=== PATIENT | male | born 1940 | race Hispanic/Latino ===

== ENCOUNTER 2024-10-25 11:49 | Outpatient (CLI) | payer MEDICARE, SELFPAY ==
--- NOTE | ~2024-10-25 | MR_ITS ---
MRI of the brain Clinical History: Other symptoms of cognitive function Technique: Axial and sagittal T1-weighted images were acquired. These were followed by axial T2-weigh camila, diffusion weighted, gradient, and FLAIR images. Following intravenous administration of 12 cc Mu ltiHance gadolinium, T1-weighted fat-sat imaging was performed in the axial and coronal planes. Findings: There is no acute infarct, internal hemorrhage, or mass lesion. There are extensive chronic white matter changes in the periventricular white matter bilaterally. Ventricles and subarachnoid spaces are mildly dilated. There are probable mildly dilated perivascular spaces in the bilateral ganglia bilaterally. Orbits are unremarkable. Paranasal sinuses and mastoid air cells are clear. Major intracranial flow voids are intact. Sagittal midline structures are intact. No abnormal postcontrast enhancement identified. IMPRESSION: No acute infarct, intracranial hemorrhage, or mass lesion. Extensive chronic microvascular ischemic changes and mild generalized atrophy. Reviewed, dictated and finalized at [facility].
== END 2024-10-25 11:50 | disposition home or self-care (01) ==
LOC: MICIMG 11:51
PROVIDERS: PCP Family Medicine; Visit Provider Family Medicine
DX: I67.82 Cerebral ischemia (principal); G31.9 Degenerative disease of nervous system, unspecified; R25.1 Tremor, unspecified
CPT/HCPCS: 70553; A9577

== ENCOUNTER 2024-11-04 10:27 | Inpatient (IN) | payer MEDICARE, SELFPAY ==
[2024-11-04] VITALS (15 sets, daily range): BP systolic 133–181; BP diastolic 40–83; PULSE 66–86; RESP 16–25; TEMP 36.4–36.7; O2SAT 96–100; BMI 22.4
--- NOTE | ~2024-11-04 | XR_ITS ---
EXAM/PROCEDURE: XR chest PICC line - 11/06/2024 10:16 CDT HISTORY: 84 years old Male with picc line insertion TECHNIQUE: Two view(s) of the chest. COMPARISON: None available. FINDINGS: LUNGS/ PLEURA: No focal consolidation. No appreciable pneumothorax or large pleural effusion. Bibasil ar atelectasis and/or scarring. HEART/ MEDIASTINUM: Heart appears normal in size. Atherosclerotic desiccation that seen in the aorta. BONES: No acute osseous abnormality. OTHER: Right upper quadrant cholecystectomy clips. Tip of the PICC line is at the distal SVC. IMPRESSION: Tip of the PICC line is in the distal SVC. Reviewed, dictated and finalized at location A.
--- NOTE | ~2024-11-04 | XR_ITS ---
XR shoulder RT min 2V Ordering provider: Jessica Mane MD History: . fall, pain b/l . Comparison: None. FINDINGS: BONES: No acute fracture or dislocation. JOINT SPACES: The acromioclavicular joint shows mild osteoarthritic changes. The glenohumeral joint i s normal. SOFT TISSUES: Normal. IMPRESSION: No acute osseous abnormality right shoulder. Reviewed, dictated and finalized at location A.
--- NOTE | ~2024-11-04 | XR_ITS ---
Portable chest x-ray Comparison: 11/04/2024 Clinical History: Fluid overload Findings: Probable minimal left pleural effusion with mild bibasilar pulmonary edema. Cardiomediast inal silhouette is stable. Bones and soft tissues are unremarkable. Impression: Minimal left pleural effusion with mild bibasilar pulmonary edema/atelectasis. Correlate clinically f or pneumonia. Reviewed, dictated and finalized at [facility]. Impression: Minimal left pleural effusion with mild bibasilar pulmonary edema/atelectasis. Correlate clinically for pneumonia.
--- NOTE | ~2024-11-04 | XR_ITS ---
XR chest 1V Ordering provider: Jessica Mane MD History: 84 years Male with . fall, ams, pain b/l shoulders . Comparison: None. FINDINGS: MEDIASTINUM: The cardiac silhouette is not enlarged. LUNGS: No infiltrates, effusions or pneumothorax. OTHER: No free air under the diaphragm. IMPRESSION: No acute cardiopulmonary pathology. Reviewed, dictated and finalized at location A.
--- NOTE | ~2024-11-04 | XR_ITS ---
EXAMINATION: XR shoulder LT min 2V DATE: 11/04/2024 13:33 INDICATION: Left shoulder pain post fall TECHNIQUE: AP internally and externally rotated, AP oblique externally rotated and transscapular Y vi ews of the left shoulder were obtained. COMPARISON: None FINDINGS: Normal alignment. No fracture. Chondrocalcinosis at the glenohumeral and acromioclavicular joints wi th minimal osteoarthritis at the former and mild to moderate osteoarthritis at the latter. Soft tissu es are unremarkable. Visualized portions of the lungs are clear. IMPRESSION: 1. No acute osseous abnormality. 2. 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 Reviewed, dictated and finalized at location A. IMPRESSION: 1. No acute osseous abnormality. 2. 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
--- NOTE | ~2024-11-04 | CT_ITS ---
EXAMINATION: CT chest abdomen pelvis wo con DATE: 11/04/2024 13:43 INDICATION: Weakness and hematuria post fall TECHNIQUE: Computed tomography (CT) of the chest, abdomen, and pelvis was performed without intraveno us contrast. Automated exposure control and iterative reconstruction technique were employed. The dos e-length product was 492.24 mGy-cm. COMPARISON: None FINDINGS: CHEST CT: Mild dependent atelectasis in the bilateral lower lobes. No pneumonia, pulmonary edema or pleural eff usion or pneumothorax. Heart size normal. Atherosclerotic coronary artery calcific lesion. Aortic carla ve calcification. Small pericardial effusion. Thoracic aorta is normal in caliber. No pathologically enlarged thoracic lymphadenopathy. Calcified mediastinal lymph nodes consistent with old granulomatou s disease. Mild thoracic spondylosis. ABDOMEN/PELVIS CT: Cholecystectomy clips at the gallbladder fossa. Liver, spleen, pancreas, left kidney and bilateral ad renal glands are normal. 2 mm nonobstructing stone in upper pole calyx of the right kidney. No ureter al stones or hydronephrosis. Bladder is normal. Metallic densities at the mildly enlarged prostate wh ich could represent surgical clips, brachial therapy seeds or fiducials markers. Mild diverticulosis along the descending and sigmoid colon without adjacent from trace stranding to suggest diverticuliti s. No bowel obstruction. No free intraperitoneal gas or fluid. No pathologically enlarged abdominal o r pelvic lymphadenopathy. 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 IMPRESSION: 1. 2 mm nonobstructing right renal stone. No other urolithiasis on either the left or right or hydron ephrosis. 2. Small pericardial effusion. Reviewed, dictated and finalized at location A. IMPRESSION: 1. 2 mm nonobstructing right renal stone. No other urolithiasis on either the l eft or right or hydronephrosis. 2. Small pericardial effusion.
--- NOTE | ~2024-11-04 | XR_ITS ---
XR chest 1V portable Ordering provider: Diana Garcia APRN History: 84 years Male with . increased oxygen requirement, crackles . Comparison: November 06, 2024 FINDINGS: MEDIASTINUM: The cardiac silhouette is not enlarged. Right PICC line with the tip overlying superior vena cava. LUNGS: No infiltrates, effusions or pneumothorax. Left basal subsegmental atelectasis. OTHER: No free air under the diaphragm. Degenerative changes of the spine. IMPRESSION: Subsegmental atelectatic changes in the left lung base. Otherwise, No acute cardiopulmonary pathology. Reviewed, dictated and finalized at location A.
--- NOTE | ~2024-11-04 | CT_ITS ---
EXAMINATION: CTA BRAIN/CAROTID DATE: 11/04/2024 13:57 INDICATION: Fall. Prominent pulsatile right carotid artery. TECHNIQUE: Computed tomographic angiography (CTA) of the head and neck was performed with 100 mL Omni paque-350 intravenous contrast. Multiplanar reconstructions and maximum intensity projection 3D-recon structions of the carotid arteries and of the intracranial arteries were created by the technologist on a separate workstation. Precontrast CT of the head was also obtained. Automated exposure control and iterative reconstruction technique were employed.The dose-length product was 1578.39 mGy-cm. COMPARISON: None. FINDINGS: Carotid arteries: Scattered atherosclerotic plaque without hemodynamically significant stenosis and no dissection along the normal caliber aortic arch and great vessels arising from the arch. There is atherosclerotic attila que at the right carotid bulb. Assessment of the degree of stenosis is however limited by some motion artifact at this level. This results in likely 25-50 % stenosis of the right carotid bulb relative t o normal distal artery lumen diameter (NASCET criteria). There is a small mild atherosclerotic plaque with 0% stenosis of the left carotid bulb relative to normal distal artery lumen diameter. Left vert ebral artery is dominant. There is mild stenosis at the origin of the diminutive right vertebral luli ry. Respiratory motion in the visualized upper lungs. Mild dependent atelectasis at the superior segm ents of the bilateral lower lobes. Calcite mediastinal lymph nodes consistent with old granulomatous disease. Cervical soft tissues are unremarkable. Mild cervical and upper thoracic spondylosis. Head: No acute intracranial hemorrhage, acute infarction or abnormal extra axial fluid collection. There is mild scattered white matter hypoattenuation consistent with chronic small vessel ischemic disease. S ymmetric prominence of the sulci consistent with mild age-appropriate diffuse cerebral volume loss. Ventricles are normal and symmetric. No mass/mass effect. Chronic appearing broad fracture of the kinney emelia preparation along the medial wall the right orbit. Changes of bilateral intraocular lens replacem ent. There are some bubbly mucus in the right sphenoid sinus. Mastoid air cells and middle ear caviti es are clear. No abnormally enhancing brain lesions on the postcontrast imaging. Intracranial arteries Left vertebral artery is dominant and the sole supply to the basilar artery. The diminutive right tootie tebral artery terminates at the posterior inferior cerebellar artery.. There is no hemodynamically si gnificant stenosis in the vertebral, basilar and internal carotid arteries. Both A1 and P1 segments a re patent. There are also a patent anterior communicating and left posterior communicating arteries. There are no aneurysms identified. Cerebral arterial arborization appears symmetric. IMPRESSION: 1. Likely 25-50% stenosis of the right carotid bulb relative to normal distal artery lumen diameter ( NASCET criteria) although evaluation is limited by motion artifact at this level. 2. Small amount of atherosclerotic plaque with 0% stenosis of the left carotid bulb relative to livier l distal artery lumen diameter. 3. No acute intracranial process or hemodynamically significant stenosis, thrombosis or aneurysm of t he intracranial cerebral arteries. 4. Age-related changes the brain including mild diffuse volume loss and mild scattered white matter h ypoattenuation consistent with chronic small vessel ischemic disease. Reviewed, dictated and finalized at location A. IMPRESSION: 1. Likely 25-50% stenosis of the right carotid bulb relative to normal distal a rtery lumen diameter (NASCET criteria) although evaluation is limited by motion artifact at this level. 2. Small amount of atherosclerotic plaque with 0% stenosis of the left carotid bulb relative to normal distal artery lumen diameter. 3. No acute intracranial process or hemodynamically significant stenosis, throm bosis or aneurysm of the intracranial cerebral arteries. 4. Age-related changes the brain including mild diffuse volume loss and mild sc attered white matter hypoattenuation consistent with chronic small vessel ische vitor disease.
--- NOTE | 2024-11-04 10:55 | ECG_ITS ---
Test Date: 2024-11-04 10:57:50 Measurements Intervals [place] Rate: 80 P: 33 ND: 171 QRS: 52 QRSD: 90 T: 58 QT: 383 QTc: 442 Interpretive Statements SINUS RHYTHM MINIMAL Q WAVES- LAT/HIGH LAT LEADS BASELINE ARTIFACT- I, II, III, AVR, AVL, AVF, V2 BORDERLINE ECG No previous ECG available for comparison Electronically Signed On 11-04-2024 11:42:13 CDT by Wisam Hussein D.O.
[2024-11-04 11:09] LABS: Basophils Percent Auto 0.2 % (0.2-1.2); Hematocrit 39.2 % (42.0-52.0); Hemoglobin 13.7 g/dL (14.0-18.0); Immature Granulocyte Absolute 0.05 K/mm3 (0.00-0.031); Immature Granulocyte Percent A 0.5 % (0-0.5); Lymphocytes Absolute Auto 0.61 K/mm3 (0.9-3.2); Lymphocytes Percent Auto 6.7 % (18.3-44.2); Mean Corpuscular HGB Conc 34.9 g/dl (32-36); Mean Corpuscular Hemoglobin 31.9 pg (26-34); Mean Corpuscular Volume 91.2 fl (80-100); Mean Platelet Volume 10.5 fl (7.4-10.4); Monocytes Absolute Auto 0.9 K/mm3 (0.1-0.6); Monocytes Percent Auto 10.3 % (2.6-8.5); Neutrophils Absolute Auto 7.5 K/mm3 (1.3-6.7); Neutrophils Percent Auto 82.3 % (45.5-73.1); Platelet Count Result 142 k/mm3 (150-375); Red Cell Distribution Width 12.6 % (11.5-14.5); White Blood Count 9.1 K/mm3 (4.5-10.0)
[2024-11-04 11:19] LABS: Add Urine Microscopic? YES; Appearance Urine Clear (Clear); Bacteria Urine None Seen /hpf; Bilirubin Urine Negative (Negative); Blood Urine 3+ (Negative); Color Urine Yellow (Yellow); Glucose Urine UA Negative (Negative); Hyaline Casts Urine Present /lpf; Ketones Urine Trace mg/dL (Negative); Leukocyte Esterase Ur Negative LEU/UL (Negative); Need Manual Microscopic Reviewed; Nitrate Urine Negative (Negative); Protein Urine 1+ mg/dL (Negative); RBC Urine 0-2 /hpf (0-2); Specific Grav Ur 1.019 (1.001-1.035); Squamous Epithelial Cell Urine None Seen /hpf (Few); Urobilinogen Urine 0.2 mg/dL (<2.0); WBC Urine 0-5 /hpf (0-3)
[2024-11-04 11:22] LABS: INR 1.2; Prothrombin Time 14.7 Seconds (11.1-14.7)
[2024-11-04 11:24] LABS: Partial Thromboplastin Time 29.5 Seconds (22.3-36.8)
[2024-11-04 11:30] LABS: Alanine Aminotransferase 35 U/L (6-50); Albumin Level 4.8 g/dL (3.5-5.1); Alkaline Phosphatase 72 U/L (38-126); Anion Gap 16 mmol/L (4-12); Aspartate Amino Transferase 62 U/L (17-59); Bilirubin,Total 1.5 mg/dL (0.2-1.3); Blood Urea Nitrogen 37 mg/dL (9-20); Calcium 10.3 mg/dL (8.4-10.2); Carbon Dioxide 20 mmol/L (22-30); Chloride 105 mmol/L (98-107); Estimated CRCL calculation 31 ml/min; Estimated Glomerular Filt Rate 48; Glucose 121 mg/dL (65-110); Potassium 4.2 mmol/L (3.4-5.0); Sodium 141 mmol/L (137-145); Total Protein 8.4 g/dL (6.3-8.2)
--- NOTE | 2024-11-04 12:53 | ED_ITS ---
HPI - Fall General Chief Complaint: Fall Stated Complaint: fall off bed last night, weakness, n/v Time Seen by Provider: 11/04/24 12:22 Source: patient, family and RN notes reviewed History of Present Illness HPI Narrative: Patient presents with report of falling/sliding off of his bed last night. In general he has been weak. There is report of vomiting. Patient's daughter provides collateral information. Notes that when she visited him yesterday she found that his air conditioning was off and the house was 97?. He had been confused yesterday saying that he needed CT food although there was a bag of cat food present at the house. He had also been saying that he needed dog food although the dog has been for months/years. Has a PCP. Family has had concern that he has had memory issues particularly starting 4 months ago but with increased confusion lately. He is due to see a neurologist in January for this as well as some loss of balance issues. Also an MRI. Patient denied hitting his head when he fell. Not on anticoagulation. Does take aspirin 81 mg. Denies any fevers, chills cough chest pain, shortness of breath. Does endorse a cough today that is been dry. He also endorses diarrhea. He described pain in his bilateral shoulders. He has a prominent carotid artery and daughter notes that he has some sort of issue related to his carotid artery/arteries which is being followed with imaging. Related Data Home Medications ?Medication ?Instructions ?Recorded ?Confirmed ?Last Taken ?Type aspirin 81 mg tablet,delayed 81 mg PO DAILY 03/07/24 11/04/24 11/03/24 23:00 History release (Adult Low Dose Aspirin) latanoprost 0.005 % eye drops 1 drp EACH EYE DAILY 03/07/24 11/04/24 11/03/24 23:00 History tamsulosin 0.4 mg capsule 0.4 mg PO Q24H 03/07/24 11/04/24 11/03/24 23:00 History cholecalciferol (vitamin D3) 10 10 mcg PO DAILY 05/27/24 11/04/24 11/03/24 23:00 History mcg (400 unit) capsule (Vitamin D3) mecobalamin (vitamin B12) 1,000 1,000 mcg PO DAILY 05/27/24 11/04/24 11/03/24 23:00 History mcg chewable tablet (B12 Active) multivitamin 1 tablet PO DAILY 05/27/24 11/04/24 11/03/24 23:00 History Allergies Allergy/AdvReac Type Severity Reaction Status Date / Time No Known Allergies Allergy Verified 11/04/24 10:40 [facility] Past Medical History Medical History Kidney stones Eczema Glaucoma Gout BMI 22.0-22.9, adult History of prostate cancer Hypertension Carotid artery disease Right Bilateral cataracts Herniated cervical disc Surgical History Surgical History H/O prostate biopsy H/O colonoscopy History of cholecystectomy History of appendectomy Family History Family History Father Acute myocardial infarction Mother , criptogenic liver No problems noted. Sibling No problems noted. Sibling No problems noted. Social History Social History Social History: Code status: Full code (per EMR) Surrogate decision maker: Shellie Brown (daughter) Smoking status: Former smoker Second hand tobacco smoke exposure: Yes Alcohol intake: former Substance use: never Substance use type: does not use Do You Feel Safe in your Home?: Yes Lack of Transportation: No Lack of Food: Never True Current Housing: I Have Housing Concerned About Future Housing: No Difficulty Paying Gas/Electric Bills: No Difficulty Paying for Meds: No Currently Unemployed: No Education: High School Diploma/GED Difficulty w/ Childcare or Family Care: No Living arrangements: alone Occupation/Education: retired Additional occupation/education comments: [employer] Gender identity (if verbalized by the patient): Male Spiritual care concerns: No Exam 2 Narrative: GENERAL: Ill-appearing, though in no acute distress. HEAD: Normocephalic, atraumatic. EYES: Non injected, non icteric ENT: Nares clear, no rhinorrhea or epistaxis. Gross auditory acuity intact. NECK: No meningismus. Prominent carotid artery, particularly on the right. CHEST: Speaking in full sentences. No respiratory distress. HEART: Regular rate and rhythm. . ABDOMEN: Soft, nondistended. No rigidity or guarding. Not peritoneal EXTREMITIES: No lower extremity edema. SKIN: Warm, dry, no rash. NEURO: Alert and oriented. Answering questions but with simple yes/no. Following commands. Normal speech without aphasia or dysarthria. Appears very weak. PSYCH: Congruent mood and affect. Course Vital Signs Vital signs: Vital Signs Temperature 97.9 F 11/04/24 10:37 Pulse Rate 81 11/04/24 10:37 Respiratory Rate 18 11/04/24 10:37 Blood Pressure 176/63 H 11/04/24 10:37 Pulse Oximetry 100 11/04/24 10:37 Oxygen Delivery Room Air 11/04/24 10:37 Temperature 97.8 F 11/06/24 07:40 Pulse Rate 103 H 11/06/24 06:00 Respiratory Rate 32 H 11/06/24 06:00 Blood Pressure 158/79 H 11/06/24 06:00 Pulse Oximetry 95 11/06/24 06:00 Oxygen Delivery Room Air 11/05/24 09:21 MDM - Fall MDM Narrative Medical decision making narrative: Patient presents after reportedly falling/sliding out of bed last night. Patient's daughter had visited yesterday and noticed that his air conditioning was off and it was extremely hot house. He has been confused. He has had some memory issues in the past 4 months and is due to see a neurologist but this seemed to be in acute worsening. In general he is weak. He endorsed some coughing and diarrhea. In the emergency department he is afebrile with vital signs that show hypertension. Patient's creatinine has ranged between 1.2 and 1.4 previously it is 1.4 today. This is unclear whether this represents CKD verses, more likely, CHRISSY superimposed on CKD. He has 3+ blood in urine. Considered kidney stone including septic stone. Normocytic anemia with no prior for comparison. Patient has an elevated CPK in the thousands concerning for rhabdomyolysis. 2nd L fluid bolus ordered. He also has has a mildly elevated troponin although with no prior for comparison. Repeat troponin and aspirin are ordered although patient denies having any chest pain. Discussed with patient and his daughter at bedside the need for admission for the combination of aggressive fluid hydration for the rhabdomyolysis as well as continued monitoring of the NSTEMI. They verifies understanding. Will be IMU. Discussed with almond roaster hospitalist SANGITA Boles who accepts admission. Differential Diagnosis Differential diagnosis: Likely other (Intracranial hemorrhage, rhabdomyolysis, urinary tract infection, pneumonia, electrolyte abnormalities including hypomagnesemia and hyponatremia, thyroid dysfunction, ACS; dissection/anerysm; acute viral syndrome; heat related injury/issue; rhabdomyolysis) Lab Data Attestation: I reviewed the patient's lab results. 11/06/24 03:52 11/06/24 03:52 Labs: Lab Results 11/04/24 11/04/24 11/04/24 Range/Units 10:58 13:56 14:01 WBC 9.1 (4.5-10.0) K/mm3 RBC 4.30 L (4.6-6.20) M/mm3 Hgb 13.7 L (14.0-18.0) g/dL Hct 39.2 L (42.0-52.0) % MCV 91.2 (80-100) fl MCH 31.9 (26-34) pg MCHC 34.9 (32-36) g/dl RDW 12.6 (11.5-14.5) % Plt Count 142 L (150-375) k/mm3 MPV 10.5 H (7.4-10.4) fl Immature Gran % (Auto) 0.5 (0-0.5) % Neut % (Auto) 82.3 H (45.5-73.1) % Lymph % (Auto) 6.7 L (18.3-44.2) % [place] % (Auto) 10.3 H (2.6-8.5) % Eos % (Auto) 0.0 (0-4.4) % Baso % (Auto) 0.2 (0.2-1.2) % Lymph # (Auto) 0.61 L (0.9-3.2) K/mm3 [place] # (Auto) 0.9 H (0.1-0.6) K/mm3 Eos # (Auto) 0.0 (0-0.3) K/mm3 Baso # (Auto) 0.0 (0.0-0.1) K/mm3 Abs Immat Gran (auto) 0.05 H (0.00-0.031) K/mm3 Absolute Neuts (auto) 7.5 H (1.3-6.7) K/mm3 Absolute Nucleated RBC 0.000 (0.0-0.012) K/mm3 Nucleated RBC % 0.0 (0.0-0.2) % % Immature Plt Fraction (0.9-11.2) % PT 14.7 (11.1-14.7) Seconds INR 1.2 APTT 29.5 (22.3-36.8) Seconds Sodium 141 (137-145) mmol/L Potassium 4.2 (3.4-5.0) mmol/L Chloride 105 (98-107) mmol/L Carbon Dioxide 20 L (22-30) mmol/L Anion Gap 16 H (4-12) mmol/L BUN 37 H (9-20) mg/dL Creatinine 1.40 H (0.7-1.3) mg/dL Estim Creat Clear Calc 31 ml/min Estimated GFR 48 L (59 - ) Glucose 121 H (65-110) mg/dL Calcium 10.3 H (8.4-10.2) mg/dL Magnesium 1.7 Cancelled (1.6-2.3) mg/dL Total Bilirubin 1.5 H (0.2-1.3) mg/dL AST 62 H (17-59) U/L ALT 35 (6-50) U/L Alkaline Phosphatase 72 (38-126) U/L Ammonia < 9 L (9-30) umol/L Total Creatine Kinase 2326 H (55-170) U/L Troponin I 0.038 H* (0.000-0.034) ng/mL Total Protein 8.4 H (6.3-8.2) g/dL Albumin 4.8 (3.5-5.1) g/dL Vitamin B12 (239-931) pg/mL Folate (2.76->20) ng/mL TSH 0.739 (0.465-4.680) uIU/mL Urine Color Yellow (Yellow) Urine Appearance Clear (Clear) Urine pH 5.0 (5.0-9.0) Ur Specific [place] 1.019 (1.001-1.035) Urine Protein 1+ H (Negative) mg/dL Urine Glucose (UA) Negative (Negative) mg/dL Urine Ketones Trace H (Negative) mg/dL Ur Blood (Man) 3+ H (Negative) Urine Nitrate Negative (Negative) Urine Bilirubin Negative (Negative) Urine Urobilinogen 0.2 (<2.0) mg/dL Add Ur Microanalysis Reviewed Leukocyte Esterase Rfl Negative (Negative) JULIANO/UL Urine RBC 0-2 (0-2) /hpf Urine WBC 0-5 (0-3) /hpf Ur Squamous Epith Cells None seen (Few) /hpf Urine Bacteria None seen /hpf Urine Casts 3-5 Hyaline Casts Present (None) /lpf Salicylates < 1.0 L (2-20) mg/dL Urine Opiates Screen Negative (Negative) Urine Methadone Screen Negative (Negative) Acetaminophen < 10 L (10-30) ug/mL Ur Barbiturates Screen Negative (Negative) Ur Phencyclidine Scrn Negative (Negative) Ur Amphetamine Screen Negative (Negative) U Benzodiazepines Scrn Negative (Negative) Urine Cocaine Screen Negative (Negative) U Cannabinoids Screen Negative (Negative) Ethyl Alcohol < 10 (<10) mg/dL 11/04/24 11/05/24 11/05/24 Range/Units 17:19 07:56 07:57 WBC 6.2 (4.5-10.0) K/mm3 RBC 3.89 L (4.6-6.20) M/mm3 Hgb 12.2 L (14.0-18.0) g/dL Hct 36.3 L (42.0-52.0) % MCV 93.3 (80-100) fl MCH 31.4 (26-34) pg MCHC 33.6 (32-36) g/dl RDW 12.8 (11.5-14.5) % Plt Count 114 L (150-375) k/mm3 MPV 10.9 H (7.4-10.4) fl Immature Gran % (Auto) (0-0.5) % Neut % (Auto) (45.5-73.1) % Lymph % (Auto) (18.3-44.2) % [place] % (Auto) (2.6-8.5) % Eos % (Auto) (0-4.4) % Baso % (Auto) (0.2-1.2) % Lymph # (Auto) (0.9-3.2) K/mm3 [place] # (Auto) (0.1-0.6) K/mm3 Eos # (Auto) (0-0.3) K/mm3 Baso # (Auto) (0.0-0.1) K/mm3 Abs Immat Gran (auto) (0.00-0.031) K/mm3 Absolute Neuts (auto) (1.3-6.7) K/mm3 Absolute Nucleated RBC (0.0-0.012) K/mm3 Nucleated RBC % (0.0-0.2) % % Immature Plt Fraction 3.4 (0.9-11.2) % PT (11.1-14.7) Seconds INR APTT (22.3-36.8) Seconds Sodium 136 L (137-145) mmol/L Potassium 3.9 (3.4-5.0) mmol/L Chloride 110 H (98-107) mmol/L Carbon Dioxide 18 L (22-30) mmol/L Anion Gap 8 (4-12) mmol/L BUN 25 H D (9-20) mg/dL Creatinine 1.21 (0.7-1.3) mg/dL Estim Creat Clear Calc 36 ml/min Estimated GFR 57 L (59 - ) Glucose 91 (65-110) mg/dL Calcium 8.5 (8.4-10.2) mg/dL Magnesium 1.7 (1.6-2.3) mg/dL Total Bilirubin 1.0 (0.2-1.3) mg/dL AST 138 H (17-59) U/L ALT 38 (6-50) U/L Alkaline Phosphatase 55 (38-126) U/L Ammonia (9-30) umol/L Total Creatine Kinase 5289 H (55-170) U/L Troponin I 0.045 H* 0.111 H* (0.000-0.034) ng/mL Total Protein 6.4 (6.3-8.2) g/dL Albumin 3.4 L (3.5-5.1) g/dL Vitamin B12 932.0 H (239-931) pg/mL Folate > 20.0 H (2.76->20) ng/mL TSH (0.465-4.680) uIU/mL Urine Color (Yellow) Urine Appearance (Clear) Urine pH (5.0-9.0) Ur Specific [place] (1.001-1.035) Urine Protein (Negative) mg/dL Urine Glucose (UA) (Negative) mg/dL Urine Ketones (Negative) mg/dL Ur Blood (Man) (Negative) Urine Nitrate (Negative) Urine Bilirubin (Negative) Urine Urobilinogen (<2.0) mg/dL Add Ur Microanalysis Leukocyte Esterase Rfl (Negative) JULIANO/UL Urine RBC (0-2) /hpf Urine WBC (0-3) /hpf Ur Squamous Epith Cells (Few) /hpf Urine Bacteria /hpf Urine Casts Hyaline Casts (None) /lpf Salicylates (2-20) mg/dL Urine Opiates Screen (Negative) Urine Methadone Screen (Negative) Acetaminophen (10-30) ug/mL Ur Barbiturates Screen (Negative) Ur Phencyclidine Scrn (Negative) Ur Amphetamine Screen (Negative) U Benzodiazepines Scrn (Negative) Urine Cocaine Screen (Negative) U Cannabinoids Screen (Negative) Ethyl Alcohol (<10) mg/dL Imaging Data Radiologist's impression: IMPRESSION: No acute cardiopulmonary pathology. IMPRESSION: 1. No acute osseous abnormality. 2. Chondrocalcinosis with minimal osteoarthritis of the left glenohumeral and mild to moderate osteoarthritis at the acromioclav IMPRESSION: No acute osseous abnormality right shoulder. IMPRESSION: 1. 2 mm nonobstructing right renal stone. No other urolithiasis on either the left or right or hydronephrosis. 2. Small pericardial effusion. ECG Data EKG #1: Attestation: I personally reviewed and interpreted this ECG as follows: ECG completion date: 11/04/24 ECG completion time: 10:57 Interpretation: Normal sinus rhythm at a rate of 80 beats per minute. NJ interval 171. QRS 90. QT/QTC 383/418. Good R-wave progression across the precordial leads. No T- wave inversion. Normal axis. Normal ECG. Discharge Plan Discharge Clinical Impression: Fall, Weak, Nausea & vomiting, Diarrhea, CHRISSY (acute kidney injury), Normocytic anemia, Osteoarthritis of left glenohumeral joint, Osteoarthritis of left AC (acromioclavicular) joint, Pericardial effusion, Carotid stenosis, right, Non-ST elevation PR (NSTEMI) Rhabdomyolysis Qualifiers: Rhabdomyolysis type: non-traumatic Qualified Code(s): M62.82 - Rhabdomyolysis Patient Disposition: Still a Patient Condition: Stable
[2024-11-04] MEDS: SODIUM CHLORIDE 0.9% IV 1,000 ML 999 ML IV CONT ×2 (13:55→16:28)
[2024-11-04 14:24] LABS: Acetaminophen < 10 ug/mL (10-30); Ammonia < 9 umol/L (9-30); Ethanol < 10 mg/dL (<10); Salicylate < 1.0 mg/dL (2-20)
[2024-11-04 14:41] LABS: Amphetamine Screen Urine Negative (Negative); Barbiturate Screen Urine Negative (Negative); Benzodiazepines Screen Urine Negative (Negative); Cannabinoid Screen Urine Negative (Negative); Cocaine Screen Urine Negative (Negative); Methadone Screen Urine Negative (Negative); Opiate Screen Urine Negative (Negative); Phencyclidine Screen Urine Negative (Negative)
[2024-11-04 14:51] LABS: Magnesium 1.7 mg/dL (1.6-2.3)
[2024-11-04 14:59] LABS: Troponin I 0.038 ng/mL (0.000-0.034)
[2024-11-04 15:01] LABS: Creatine Kinase 2326 U/L (55-170)
[2024-11-04 15:16] LABS: Thyroid Stimulating Hormone 0.739 uIU/mL (0.465-4.680)
[2024-11-04] MEDS: ASPIRIN 81 MG CHEWABLE TABLET 324 MG PO (16:28)
--- NOTE | 2024-11-04 17:05 | ECG_ITS ---
Test Date: 2024-11-04 17:13:05 Measurements Intervals [place] Rate: 71 P: 22 [place]: 158 QRS: 30 QRSD: 87 T: 25 QT: 395 QTc: 430 Interpretive Statements SINUS RHYTHM WITH OCCASIONAL SUPRAVENTRICULAR PREMATURE COMPLEXES BASELINE ARTIFACT- I, II, III, AVR, AVL, AVF, V1-V2 BORDERLINE ECG Compared to ECG 11/04/2024 10:57:50 No significant changes Electronically Signed On 11-04-2024 20:12:37 CDT by Wisam Hussein D.O.
[2024-11-04] MEDS: SODIUM CHLORIDE 0.9% IV 1,000 ML 250 ML IV CONT (17:22)
[2024-11-04 17:54] LABS: Troponin I 0.045 ng/mL (0.000-0.034)
[2024-11-05] VITALS (11 sets, daily range): BP systolic 138–168; BP diastolic 52–76; PULSE 66–84; RESP 16–18; TEMP 36.3–38.3; O2SAT 93–100
--- NOTE | 2024-11-05 02:52 | P.HP_ITS ---
H&P: HPI History of Present Illness Date/Time: 11/05/24 02:52 Chief Complaint: Nausea, vomiting, increased confusion Narrative: 84-year-old male a past medical history of gait instability, memory loss, crowded stenosis, prostate cancer status post radiation therapy, gout, essential hypertension and BPH who presented to the ER in the company of family due to nausea, vomiting and increased confusion. Family reported to ER staff that the patient has been weaker than usual. The patient's daughter was at bedside when I went to evaluate the patient. She reports that the patient has had an acute decline in his cognitive functioning over the last 4 months. He has also acutely developed tremors in the same amount of time as well as a shuffling gait. He had outpatient MRI of the brain on the which was negative. He has an outpatient appointment with Dr. Hurtado in January. His daughter visits him frequently. She reports that on Monday she found him in his house without the air conditioning on. The temperature in the house was 97?. He had multiple abrasions in scratches and had fallen on the floor. She was able to get him up and get him cool down. When she came back the next morning the patient was less responsive. He was no longer responsive and was more acutely confused. She found him on the floor any stated he had slipped off the bed. He did not have any external evidence of head trauma. Patient's daughter reports that although patient is having episodes of confusion intermittently for about a year patient is still usually very active and does a lot of work outside. She thinks that he may have been outside exerting himself in the heat which may have worsened things. She became concerned yesterday when she could not get him up to move around. CTA of the head and neck was performed in the ER which demonstrated no acute intercranial process and no hemodynamically significant carotid stenosis. He had mild diffuse volume loss and mild scattered white matter hypodensities consistent with chronic small-vessel ischemic disease which fits with patient's recent MRI findings on 10/25/2024. CT of the chest abdomen pelvis without contrast demonstrated 2 mm nonobstructing right renal stone and small pericardial effusion. Labs demonstrated elevated CK consistent with rhabdomyolysis and mild hypercalcemia and mild transaminitis as well as and low serum bicarb in slightly elevated anion gap. Patient's BUN was elevated above baseline of 18 is up to 37. Creatinine is minimally elevated above baseline to 1.4. Patient's initial troponin was elevated to 0.038 with repeat of 0.045 but he denies having any cardiac symptoms. EKG demonstrated normal sinus rhythm without evidence of ischemia. He received full-dose aspirin, and 2 L of IV fluids in the ER. He was started on fluids initially 250 mL an hour. Patient was admitted for observation. At the time of my evaluation the patient was even more confused than at his baseline. He would tell me his 1st name. He was unable to tell me his last name or location. Even with his daughter prompting he would not answer any other questions. Patient wears incontinence briefs all the time. Review of Systems 2 Review of Systems: Review of systems limited due to patient's confusion. The patient's daughter provided all information. [facility] Past Medical History Medical History Kidney stones Eczema Glaucoma Gout BMI 22.0-22.9, adult History of prostate cancer Hypertension Carotid artery disease Right Bilateral cataracts Herniated cervical disc Surgical History Surgical History H/O prostate biopsy H/O colonoscopy History of cholecystectomy History of appendectomy Family History Family History Father Acute myocardial infarction Mother , criptogenic liver No problems noted. Sibling No problems noted. Sibling No problems noted. Social History Social History (Updated 11/05/24 @ 03:23 by Yasmeen Key DO) Social History: Code status: Full code (per EMR) Surrogate decision maker: Shellie Brown (daughter) Smoking status: Former smoker Second hand tobacco smoke exposure: Yes Alcohol intake: former Substance use: never Substance use type: does not use Do You Feel Safe in your Home?: Yes Lack of Transportation: No Lack of Food: Never True Current Housing: I Have Housing Concerned About Future Housing: No Difficulty Paying Gas/Electric Bills: No Difficulty Paying for Meds: No Currently Unemployed: No Education: High School Diploma/GED Difficulty w/ Childcare or Family Care: No Living arrangements: alone Occupation/Education: retired Additional occupation/education comments: [employer] Gender identity (if verbalized by the patient): Male Spiritual care concerns: No Meds Home Medications and Allergies Home Medications ?Medication ?Instructions ?Recorded ?Confirmed ?Type aspirin 81 mg tablet,delayed 81 mg PO DAILY 03/07/24 11/04/24 History release (Adult Low Dose Aspirin) latanoprost 0.005 % eye drops 1 drp EACH EYE DAILY 03/07/24 11/04/24 History tamsulosin 0.4 mg capsule 0.4 mg PO Q24H 03/07/24 11/04/24 History cholecalciferol (vitamin D3) 10 10 mcg PO DAILY 05/27/24 11/04/24 History mcg (400 unit) capsule (Vitamin D3) mecobalamin (vitamin B12) 1,000 1,000 mcg PO DAILY 05/27/24 11/04/24 History mcg chewable tablet (B12 Active) multivitamin 1 tablet PO DAILY 05/27/24 11/04/24 History triamcinolone acetonide 0.025 % 1 applic topical DAILY #80 grams 05/27/24 11/04/24 Rx topical cream lisinopril 20 mg tablet See Rx Instructions .Route 09/12/24 11/04/24 Rx .COMPLEX #90 tabs Allergies Allergy/AdvReac Type Severity Reaction Status Date / Time No Known Allergies Allergy Verified 11/04/24 10:40 Vital Signs Vital Signs - 24 hr 11/04/24 10:37 11/04/24 10:49 11/04/24 10:54 Temperature 97.9 F 98 F Pulse Rate 81 76 76 Respiratory Rate 18 20 16 Blood Pressure 176/63 H 181/74 H 181/74 H Pulse Oximetry 100 100 100 Oxygen Delivery Room Air Room Air 11/04/24 11:15 11/04/24 11:45 11/04/24 12:53 Temperature 98 F 97.8 F 98 F Pulse Rate 73 75 73 Respiratory Rate 24 H 23 H 18 Blood Pressure 176/63 H 171/61 H 164/62 H Pulse Oximetry 98 96 100 Oxygen Delivery 11/04/24 14:00 11/04/24 14:41 11/04/24 15:03 Temperature 98.0 F 98.0 F Pulse Rate 86 72 69 Respiratory Rate 18 20 18 Blood Pressure 162/63 H 174/75 H 161/40 H Pulse Oximetry 100 99 98 Oxygen Delivery 11/04/24 17:22 11/04/24 18:50 11/04/24 20:00 Temperature 98.0 F 97.8 F Pulse Rate 68 69 66 Respiratory Rate 25 H 18 23 H Blood Pressure 166/61 H 135/62 133/58 L Pulse Oximetry 100 97 99 Oxygen Delivery 11/04/24 20:45 11/04/24 22:53 11/04/24 23:33 Temperature 98.0 F 97.6 F Pulse Rate 74 77 73 Respiratory Rate 25 H 18 Blood Pressure 139/59 L 143/83 H Pulse Oximetry 97 99 Oxygen Delivery Exam 2 Narrative: Weight 61.1 kg BMI 22.4 Const: Other: No acute distress, well-developed well-nourished, appears stated age HENMT: Other: Head is normocephalic atraumatic, pupils are equal and reactive, mucous membranes are dry Eyes: Other: No scleral icterus, pupils are equal and reactive Neck: Other: No JVD, no lymphadenopathy Resp: Other: Clear to auscultation bilaterally, no increased work of breathing Cardio: Other: Regular rate, regular rhythm, 2+ bilateral radial pedal pulses, no murmur GI: Other: Soft, nontender, nondistended, positive bowel sounds Skin: Other: Multiple areas of bruising to bilateral arms all relatively acute appearing Neuro: Other: Patient is alert but somnolent, he is oriented only to name he thinks that he is in [place], he does not answer when asked the month or year, he has fasciculations of his tongue when asked to open his mouth, he has intention tremor, poor coordination, normal muscle tone Extrem: Other: No clubbing, cyanosis or edema, 5/5 wash operator strength bilateral Psych: Other: Confused, cooperative unable to assess further H&P: Results Labs Labs: Laboratory Tests 11/04/24 10:58 11/04/24 10:58 11/04/24 11/04/24 11/04/24 10:58 13:56 14:01 WBC 9.1 RBC 4.30 L Hgb 13.7 L Hct 39.2 L MCV 91.2 MCH 31.9 MCHC 34.9 RDW 12.6 Plt Count 142 L MPV 10.5 H Immature Gran % (Auto) 0.5 Neut % (Auto) 82.3 H Lymph % (Auto) 6.7 L [place] % (Auto) 10.3 H Eos % (Auto) 0.0 Baso % (Auto) 0.2 Lymph # (Auto) 0.61 L [place] # (Auto) 0.9 H Eos # (Auto) 0.0 Baso # (Auto) 0.0 Abs Immat Gran (auto) 0.05 H Absolute Neuts (auto) 7.5 H Absolute Nucleated RBC 0.000 Nucleated RBC % 0.0 PT 14.7 INR 1.2 APTT 29.5 Sodium 141 Potassium 4.2 Chloride 105 Carbon Dioxide 20 L Anion Gap 16 H BUN 37 H Creatinine 1.40 H Estim Creat Clear Calc 31 Estimated GFR 48 L Glucose 121 H Calcium 10.3 H Magnesium 1.7 Cancelled Total Bilirubin 1.5 H AST 62 H ALT 35 Alkaline Phosphatase 72 Ammonia < 9 L Total Creatine Kinase 2326 H Troponin I 0.038 H* Total Protein 8.4 H Albumin 4.8 TSH 0.739 Urine Color Yellow Urine Appearance Clear Urine pH 5.0 Ur Specific [place] 1.019 Urine Protein 1+ H Urine Glucose (UA) Negative Urine Ketones Trace H Ur Blood (Man) 3+ H Urine Nitrate Negative Urine Bilirubin Negative Urine Urobilinogen 0.2 Add Ur Microanalysis Reviewed Leukocyte Esterase Rfl Negative Urine RBC 0-2 Urine WBC 0-5 Ur Squamous Epith Cells None seen Urine Bacteria None seen Urine Casts 3-5 Hyaline Casts Present Salicylates < 1.0 L Urine Opiates Screen Negative Urine Methadone Screen Negative Acetaminophen < 10 L Ur Barbiturates Screen Negative Ur Phencyclidine Scrn Negative Ur Amphetamine Screen Negative U Benzodiazepines Scrn Negative Urine Cocaine Screen Negative U Cannabinoids Screen Negative Ethyl Alcohol < 10 11/04/24 17:19 WBC RBC Hgb Hct MCV MCH MCHC RDW Plt Count MPV Immature Gran % (Auto) Neut % (Auto) Lymph % (Auto) [place] % (Auto) Eos % (Auto) Baso % (Auto) Lymph # (Auto) [place] # (Auto) Eos # (Auto) Baso # (Auto) Abs Immat Gran (auto) Absolute Neuts (auto) Absolute Nucleated RBC Nucleated RBC % PT INR APTT Sodium Potassium Chloride Carbon Dioxide Anion Gap BUN Creatinine Estim Creat Clear Calc Estimated GFR Glucose Calcium Magnesium Total Bilirubin AST ALT Alkaline Phosphatase Ammonia Total Creatine Kinase Troponin I 0.045 H* Total Protein Albumin TSH Urine Color Urine Appearance Urine pH Ur Specific [place] Urine Protein Urine Glucose (UA) Urine Ketones Ur Blood (Man) Urine Nitrate Urine Bilirubin Urine Urobilinogen Add Ur Microanalysis Leukocyte Esterase Rfl Urine RBC Urine WBC Ur Squamous Epith Cells Urine Bacteria Urine Casts Hyaline Casts Salicylates Urine Opiates Screen Urine Methadone Screen Acetaminophen Ur Barbiturates Screen Ur Phencyclidine Scrn Ur Amphetamine Screen U Benzodiazepines Scrn Urine Cocaine Screen U Cannabinoids Screen Ethyl Alcohol Impressions Chest X-Ray 11/04/24 13:36 IMPRESSION: No acute cardiopulmonary pathology. Shoulder X-Ray 11/04/24 13:37 IMPRESSION: 1. No acute osseous abnormality. 2. 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 Shoulder X-Ray 11/04/24 13:37 IMPRESSION: No acute osseous abnormality right shoulder. Chest/Abdomen/Pelvis CT 11/04/24 13:47 IMPRESSION: 1. 2 mm nonobstructing right renal stone. No other urolithiasis on either the left or right or hydronephrosis. 2. Small pericardial effusion. Head/Neck CTA 11/04/24 13:59 IMPRESSION: 1. Likely 25-50% stenosis of the right carotid bulb relative to normal distal artery lumen diameter (NASCET criteria) although evaluation is limited by motion artifact at this level. 2. Small amount of atherosclerotic plaque with 0% stenosis of the left carotid bulb relative to normal distal artery lumen diameter. 3. No acute intracranial process or hemodynamically significant stenosis, thrombosis or aneurysm of the intracranial cerebral arteries. 4. Age-related changes the brain including mild diffuse volume loss and mild scattered white matter hypoattenuation consistent with chronic small vessel ischemic disease. EKG:Test Date: 2024-11-04 17:13:05 Measurements Intervals [place] Rate: 71 P: 22 ID: [id number] QRS: 30 QRSD: 87 T: 25 QT: 395 QTc: 430 Interpretive Statements SINUS RHYTHM WITH OCCASIONAL SUPRAVENTRICULAR PREMATURE COMPLEXES BASELINE ARTIFACT- I, II, III, AVR, AVL, AVF, V1-V2 BORDERLINE ECG Compared to ECG 11/04/2024 10:57:50 No significant changes All imaging and EKGs personally reviewed and interpreted. And unless stated otherwise agree with radiologic and cardiology interpretation. Assessment and Plan Assessment and plan (1) CHRISSY (acute kidney injury): Code(s): N17.9 - Acute kidney failure, unspecified Status: Acute Assessment and Plan: Likely due to rhabdomyolysis and dehydration with recent heat exposure. Patient received 2 L normal saline in the ER. I had ordered maintenance fluids to start at the time of admission but due to nursing miscommunication the patient's IV fluids were not started until the time of my evaluation. Will continue IV fluids at her 50 mL an hour and repeat electrolyte panel. Will monitor I&O's closely. Will repeat CK level (2) Elevated troponin: Code(s): R79.89 - Other specified abnormal findings of blood chemistry Status: Acute Assessment and Plan: Elevated troponin with flat profile not due to acute cardiac ischemia. Probably more likely due to rhabdomyolysis in the setting of acute kidney injury. (3) Nausea & vomiting: Code(s): R11.2 - Nausea with vomiting, unspecified Status: Acute (4) Rhabdomyolysis: Qualifiers: Rhabdomyolysis type: non-traumatic Qualified Code(s): M62.82 - Rhabdomyolysis Code(s): M62.82 - Rhabdomyolysis Status: Acute Assessment and Plan: Continue IV fluids as discussed above. Will repeat CK level in electrolyte panel as discussed. (5) Abnormal urinalysis: Code(s): R82.90 - Unspecified abnormal findings in urine Status: Acute Assessment and Plan: The patient has an abnormal urinalysis but no overt evidence of UTI. (6) Cognitive and behavioral changes: Code(s): R41.89 - Other symptoms and signs involving cognitive functions and awareness; R46.89 - Other symptoms and signs involving appearance and behavior Status: Acute Assessment and Plan: Patient has had fairly rapid development of declining cognitive function. Patient's daughter reported that she had been suspicious the patient may have some dementia for the last year so. But over last 4 months he has developed shuffling gait and tremor in seems to be declining rapidly. The she has become increasingly concerned. Her outpatient evaluation by Neurology is still several months out. Given the patient's acute decompensation and marked tremor as low well as tongue fasciculations at the time of my evaluation will consult Neurology for inpatient evaluation and recommendations. (7) Fall: Code(s): W19.XXXA - Unspecified fall, initial encounter Status: Acute Assessment and Plan: Due to above factors. Will place on fall precautions (8) Pericardial effusion: Code(s): I31.39 - Other pericardial effusion (noninflammatory) Status: Acute Assessment and Plan: Minimal pericardial effusion without other cardiac symptoms. Not likely clinically significant. Plan MEDICAL DECISION MAKING NARRATIVE -Spoke with the ED provider in detail regarding patient's evaluation, workup and management -Patient seen and examined at bedside -Collaborated with patient's nurse at the bedside in detail and addressed all concerns -Labs, electrolytes, radiology, investigations and test results reviewed -ED/Consult/Nursing/Ancilliary notes on the chart reviewed and appreciated -Spoke with patient/family at the bedside and all questions answered. Quality VTE Prophylaxis VTE prophylaxis: pharmacologic ordered (Heparin 5000 units subQ q.12 hours) Hospitalist [facility] Advance Care Plan I have confirmed that the patient's Advanced Care Plan is present, code status is documented, or surrogate decision maker is listed in patient medical record.: Yes Medication Reconciliation I have utilized all available resources to obtain, update and review the patients current medications (includes all prescriptions, OTC, herbals, cannabis, and nutritional supplements).: Yes
[2024-11-05] MEDS: SODIUM CHLORIDE 0.9% IV 1,000 ML 150 ML IV CONT ×4 (05:32→20:53)
--- NOTE | 2024-11-05 08:18 | P.PNIM_ITS ---
Progress Note: A&P Assessment and Plan (1) CHRISSY (acute kidney injury): Code(s): N17.9 - Acute kidney failure, unspecified Status: Acute Assessment and Plan: * Likely due to rhabdomyolysis and dehydration with recent heat exposure. Patient received 2 L normal saline in the ER. I had ordered maintenance fluids to start at the time of admission but due to nursing miscommunication the patient's IV fluids were not started until the time of my evaluation. Will continue IV fluids at her 50 mL an hour and repeat electrolyte panel. Will monitor I&O's closely. Will repeat CK level * Creatinine: 1.4, GFR: 48, BUN: 37 * IV Fluids: NaCl 150ml/hr * Trend renal function * Trend electrolytes, correct as needed * Add CK, urine sodium, protein/creatinine, urea (2) Rhabdomyolysis: Qualifiers: Rhabdomyolysis type: non-traumatic Qualified Code(s): M62.82 - Rhabdomyolysis Code(s): M62.82 - Rhabdomyolysis Status: Acute Assessment and Plan: * Likely related to gait instability and worsening dementia * CK upon admission: 2326, repeat 11/05 is 5289 * Continue IV fluids as discussed above. * Monitor daily (3) Elevated troponin: Code(s): R79.89 - Other specified abnormal findings of blood chemistry Status: Acute Assessment and Plan: * Elevated troponin with flat profile not due to acute cardiac ischemia. * Likely secondary to underlying Rhabdo, CHRISSY * EKG: NSR * Consult cardio, as 3rd trop increased to 0.111 * Continue aspirin (4) Nausea & vomiting: Code(s): R11.2 - Nausea with vomiting, unspecified Status: Acute Assessment and Plan: * No complaints of n/v on 11/05 (5) Abnormal urinalysis: Code(s): R82.90 - Unspecified abnormal findings in urine Status: Acute Assessment and Plan: * UA: 1+ protein, trace ketones, 3+ blood * Likely secondary to CHRISSY/rhabdomyolysis * Likely not infectious * No indications for antibiotics (6) Cognitive and behavioral changes: Code(s): R41.89 - Other symptoms and signs involving cognitive functions and awareness; R46.89 - Other symptoms and signs involving appearance and behavior Status: Acute Assessment and Plan: * Patient has had fairly rapid development of declining cognitive function. Patient's daughter reported that she had been suspicious the patient may have some dementia for the last year so. But over last 4 months he has developed shuffling gait and tremor in seems to be declining rapidly. The she has become increasingly concerned. Her outpatient evaluation by Neurology is still several months out. * Neurology consult pending, appreciate further recommendations (7) Fall: Code(s): W19.XXXA - Unspecified fall, initial encounter Status: Acute Assessment and Plan: * Due to above factors. * Fall precautions * PT/OT eval (8) Pericardial effusion: Code(s): I31.39 - Other pericardial effusion (noninflammatory) Status: Acute Assessment and Plan: * Minimal pericardial effusion without other cardiac symptoms. * Not likely clinically significant. * Monitor 02%, physical exam Subjective Date/time seen: 11/05/24 08:18 Interval history: 84-year-old male a past medical history of gait instability, memory loss, crowded stenosis, prostate cancer status post radiation therapy, gout, essential hypertension and BPH who presented to the ER in the company of family due to nausea, vomiting and increased confusion. 11/05/2024 Patient sitting comfortably in bed at time of exam. Pt is accompanied by daughter who states that since admission, patient has not had any complaints/concerns. Denies any cp, sob, n/v, or abdominal pain. Neuro and cardi o consult pending at this time. No evidence of fluid overload at this time. Continue IVFs and monitor of symptoms. Review of Systems Review of Systems: Review of systems limited due to patient's confusion. The patient's daughter provided all information. Exam Narrative: Weight 61.1 kg BMI 22.4 Const: Other: No acute distress, well-developed well-nourished, appears stated age HENMT: Other: Head is normocephalic atraumatic, pupils are equal and reactive, mucous membranes are dry Eyes: Other: No scleral icterus, pupils are equal and reactive Neck: Other: No JVD, no lymphadenopathy Resp: Other: Clear to auscultation bilaterally, no increased work of breathing Cardio: Other: Regular rate, regular rhythm, 2+ bilateral radial pedal pulses, no murmur GI: Other: Soft, nontender, nondistended, positive bowel sounds Skin: Other: Multiple areas of bruising to bilateral arms all relatively acute appearing Neuro: Other: Patient is alert but somnolent, he is oriented only to name he thinks that he is in [place], he does not answer when asked the month or year, he has fasciculations of his tongue when asked to open his mouth, he has intention tremor, poor coordination, normal muscle tone Extrem: Other: No clubbing, cyanosis or edema, 5/5 tribunal member strength bilateral Psych: Other: Confused, cooperative unable to assess further Objective Data Vital Signs Vital Signs: Vital Signs - 24 hr 11/04/24 10:37 11/04/24 10:49 11/04/24 10:54 Temperature 97.9 F 98 F Pulse Rate 81 76 76 Respiratory Rate 18 20 16 Blood Pressure 176/63 H 181/74 H 181/74 H Pulse Oximetry 100 100 100 Oxygen Delivery Room Air Room Air 11/04/24 11:15 11/04/24 11:45 11/04/24 12:53 Temperature 98 F 97.8 F 98 F Pulse Rate 73 75 73 Respiratory Rate 24 H 23 H 18 Blood Pressure 176/63 H 171/61 H 164/62 H Pulse Oximetry 98 96 100 Oxygen Delivery 11/04/24 14:00 11/04/24 14:41 11/04/24 15:03 Temperature 98.0 F 98.0 F Pulse Rate 86 72 69 Respiratory Rate 18 20 18 Blood Pressure 162/63 H 174/75 H 161/40 H Pulse Oximetry 100 99 98 Oxygen Delivery 11/04/24 17:22 11/04/24 18:50 11/04/24 20:00 Temperature 98.0 F 97.8 F Pulse Rate 68 69 66 Respiratory Rate 25 H 18 23 H Blood Pressure 166/61 H 135/62 133/58 L Pulse Oximetry 100 97 99 Oxygen Delivery 11/04/24 20:45 11/04/24 22:53 11/04/24 23:33 Temperature 98.0 F 97.6 F Pulse Rate 74 77 73 Respiratory Rate 25 H 18 Blood Pressure 139/59 L 143/83 H Pulse Oximetry 97 99 Oxygen Delivery 11/05/24 03:52 11/05/24 06:00 Temperature 97.4 F L Pulse Rate 78 75 Respiratory Rate 18 Blood Pressure 138/76 Pulse Oximetry 100 Oxygen Delivery Intake/Output Intake/Output: Intake & Output 11/02/24 11/03/24 11/04/24 11/05/24 23:59 23:59 23:59 23:59 Intake Total 3000 Output Total 500 Balance 3000 -500 Meds/Results Medications: Active Medications Generic Name Dose Route Start Last Admin Trade Name Freq PRN Reason Stop Dose Admin Acetaminophen 650 mg 11/04/24 16:22 Acetaminophen 325 Mg Tablet PO Q4H PRN Mild Pain (1-3) or Fever Aspirin 81 mg 11/05/24 09:00 Aspirin 81 Mg Enteric Tablet PO DAILY [facility] Cyanocobalamin 1,000 mcg 11/05/24 09:00 Cyanocobalamin 1,000 Mcg Tablet PO QAM [facility] Heparin Sodium (Porcine) 5,000 units 11/05/24 09:00 Heparin Sodium 5,000 Units/Ml Vial SUB-Q Q12HR [facility] Sodium Chloride 1,000 mls @ 150 mls/hr 11/04/24 16:25 11/05/24 05:32 Normal Saline Iv IV CONT 150 mls/hr .Q6H40M [facility] Administration Latanoprost 1 drop 11/05/24 09:00 Latanoprost 0.005% Op Soln 2.5 Ml Btl EACH EYE DAILY [facility] Multivitamins Therapeutic 1 tablet 11/05/24 09:00 Multivitamins Therapeutic Tab (*Bkc) PO DAILY [facility] Ondansetron HCl 4 mg 11/04/24 16:22 Ondansetron Inj 4 Mg/2 Ml Vial IV PUSH Q4H PRN Nausea Tamsulosin HCl 0.4 mg 11/05/24 09:00 Tamsulosin Hcl 0.4 Mg Capsule PO DAILY [facility] Triamcinolone Acetonide 1 applic 11/05/24 09:00 Triamcinolone Acet 0.5% Cream 15 Gm Tube TOPICAL DAILY PRN Itching Vitamin D 10 mcg 11/05/24 09:00 Cholecalciferol (Vitamin D3) 10 Mcg (400 Units) Tablet PO DAILY [facility] Radiology Results: ITS Impressions Chest X-Ray 11/04/24 13:36 IMPRESSION: No acute cardiopulmonary pathology. Shoulder X-Ray 11/04/24 13:37 IMPRESSION: 1. No acute osseous abnormality. 2. 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 Chest/Abdomen/Pelvis CT 11/04/24 13:47 IMPRESSION: 1. 2 mm nonobstructing right renal stone. No other urolithiasis on either the left or right or hydronephrosis. 2. Small pericardial effusion. Head/Neck CTA 11/04/24 13:59 IMPRESSION: 1. Likely 25-50% stenosis of the right carotid bulb relative to normal distal artery lumen diameter (NASCET criteria) although evaluation is limited by motion artifact at this level. 2. Small amount of atherosclerotic plaque with 0% stenosis of the left carotid bulb relative to normal distal artery lumen diameter. 3. No acute intracranial process or hemodynamically significant stenosis, thrombosis or aneurysm of the intracranial cerebral arteries. 4. Age-related changes the brain including mild diffuse volume loss and mild scattered white matter hypoattenuation consistent with chronic small vessel ischemic disease. Labs Labs: Laboratory Results - last 24 hr 11/04/24 11/04/24 11/04/24 10:58 13:56 14:01 WBC 9.1 RBC 4.30 L Hgb 13.7 L Hct 39.2 L MCV 91.2 MCH 31.9 MCHC 34.9 RDW 12.6 Plt Count 142 L MPV 10.5 H Immature Gran % (Auto) 0.5 Neut % (Auto) 82.3 H Lymph % (Auto) 6.7 L Morrill % (Auto) 10.3 H Eos % (Auto) 0.0 Baso % (Auto) 0.2 Lymph # (Auto) 0.61 L Morrill # (Auto) 0.9 H Eos # (Auto) 0.0 Baso # (Auto) 0.0 Abs Immat Gran (auto) 0.05 H Absolute Neuts (auto) 7.5 H Absolute Nucleated RBC 0.000 Nucleated RBC % 0.0 PT 14.7 INR 1.2 APTT 29.5 Sodium 141 Potassium 4.2 Chloride 105 Carbon Dioxide 20 L Anion Gap 16 H BUN 37 H Creatinine 1.40 H Estim Creat Clear Calc 31 Estimated GFR 48 L Glucose 121 H Calcium 10.3 H Magnesium 1.7 Cancelled Total Bilirubin 1.5 H AST 62 H ALT 35 Alkaline Phosphatase 72 Ammonia < 9 L Total Creatine Kinase 2326 H Troponin I 0.038 H* Total Protein 8.4 H Albumin 4.8 TSH 0.739 Urine Color Yellow Urine Appearance Clear Urine pH 5.0 Ur Specific [place] 1.019 Urine Protein 1+ H Urine Glucose (UA) Negative Urine Ketones Trace H Ur Blood (Man) 3+ H Urine Nitrate Negative Urine Bilirubin Negative Urine Urobilinogen 0.2 Add Ur Microanalysis Reviewed Leukocyte Esterase Rfl Negative Urine RBC 0-2 Urine WBC 0-5 Ur Squamous Epith Cells None seen Urine Bacteria None seen Urine Casts 3-5 Hyaline Casts Present Salicylates < 1.0 L Urine Opiates Screen Negative Urine Methadone Screen Negative Acetaminophen < 10 L Ur Barbiturates Screen Negative Ur Phencyclidine Scrn Negative Ur Amphetamine Screen Negative U Benzodiazepines Scrn Negative Urine Cocaine Screen Negative U Cannabinoids Screen Negative Ethyl Alcohol < 10 11/04/24 17:19 WBC RBC Hgb Hct MCV MCH MCHC RDW Plt Count MPV Immature Gran % (Auto) Neut % (Auto) Lymph % (Auto) Morrill % (Auto) Eos % (Auto) Baso % (Auto) Lymph # (Auto) [place] # (Auto) Eos # (Auto) Baso # (Auto) Abs Immat Gran (auto) Absolute Neuts (auto) Absolute Nucleated RBC Nucleated RBC % PT INR APTT Sodium Potassium Chloride Carbon Dioxide Anion Gap BUN Creatinine Estim Creat Clear Calc Estimated GFR Glucose Calcium Magnesium Total Bilirubin AST ALT Alkaline Phosphatase Ammonia Total Creatine Kinase Troponin I 0.045 H* Total Protein Albumin TSH Urine Color Urine Appearance Urine pH Ur Specific [place] Urine Protein Urine Glucose (UA) Urine Ketones Ur Blood (Man) Urine Nitrate Urine Bilirubin Urine Urobilinogen Add Ur Microanalysis Leukocyte Esterase Rfl Urine RBC Urine WBC Ur Squamous Epith Cells Urine Bacteria Urine Casts Hyaline Casts Salicylates Urine Opiates Screen Urine Methadone Screen Acetaminophen Ur Barbiturates Screen Ur Phencyclidine Scrn Ur Amphetamine Screen U Benzodiazepines Scrn Urine Cocaine Screen U Cannabinoids Screen Ethyl Alcohol Quality VTE Prophylaxis VTE prophylaxis: pharmacologic ordered (Heparin 5000 units subQ q.12 hours)
[2024-11-05 08:22] LABS: Hematocrit 36.3 % (42.0-52.0); Hemoglobin 12.2 g/dL (14.0-18.0); Immature Platelet Fraction Pct 3.4 % (0.9-11.2); Mean Corpuscular HGB Conc 33.6 g/dl (32-36); Mean Corpuscular Hemoglobin 31.4 pg (26-34); Mean Corpuscular Volume 93.3 fl (80-100); Mean Platelet Volume 10.9 fl (7.4-10.4); Platelet Count Result 114 k/mm3 (150-375); Red Blood Count 3.89 M/mm3 (4.6-6.20); Red Cell Distribution Width 12.8 % (11.5-14.5); White Blood Count 6.2 K/mm3 (4.5-10.0)
[2024-11-05 08:49] LABS: Troponin I 0.111 ng/mL (0.000-0.034)
[2024-11-05] MEDS: CHOLECALCIFEROL (VITAMIN D3) 10 MCG (400 UNITS) TABLET PO (08:55)
[2024-11-05] MEDS: CYANOCOBALAMIN 1,000 MCG TABLET 1000 MCG PO (08:55)
[2024-11-05] MEDS: ASPIRIN 81 MG ENTERIC TABLET PO (08:56)
[2024-11-05] MEDS: HEPARIN SODIUM 5,000 UNITS/ML VIAL 5000 UNITS SUB-Q ×2 (08:56→20:47)
[2024-11-05] MEDS: LATANOPROST 0.005% OP SOLN 2.5 ML BTL 1 DROP EACH EYE (08:56)
[2024-11-05] MEDS: TAMSULOSIN HCL 0.4 MG CAPSULE PO (08:56)
[2024-11-05] MEDS: MULTIVITAMINS THERAPEUTIC TAB (*BKC) 1 TABLET PO (08:56)
[2024-11-05 09:16] LABS: Alanine Aminotransferase 38 U/L (6-50); Albumin Level 3.4 g/dL (3.5-5.1); Alkaline Phosphatase 55 U/L (38-126); Anion Gap 8 mmol/L (4-12); Aspartate Amino Transferase 138 U/L (17-59); Blood Urea Nitrogen 25 mg/dL (9-20); Calcium 8.5 mg/dL (8.4-10.2); Carbon Dioxide 18 mmol/L (22-30); Chloride 110 mmol/L (98-107); Estimated CRCL calculation 36 ml/min; Estimated Glomerular Filt Rate 57; Glucose 91 mg/dL (65-110); Magnesium 1.7 mg/dL (1.6-2.3); Potassium 3.9 mmol/L (3.4-5.0); Sodium 136 mmol/L (137-145); Total Protein 6.4 g/dL (6.3-8.2)
[2024-11-05 10:47] LABS: Creatine Kinase 5289 U/L (55-170)
[2024-11-05] MEDS: ACETAMINOPHEN 325 MG TABLET 650 MG PO (11:48)
--- NOTE | 2024-11-05 13:00 | PCPTNOTE ---
Attempted PT evaluation, pt refused due to tiredness. Nursing aware. Will follow.
--- NOTE | 2024-11-05 14:44 | P.CONCA_ITS ---
Assessment and Plan Assessment and plan (1) Elevated troponin: Code(s): R79.89 - Other specified abnormal findings of blood chemistry Status: Acute Assessment and Plan: Troponin levels mildly elevated-0.038, 0.045, and 0.111. No clinical concern for acute coronary syndrome. Most likely cause for troponin spill is rhabdomyolysis and acute kidney injury. No indication for any type of ischemic evaluation in this situation. (2) Pericardial effusion: Code(s): I31.39 - Other pericardial effusion (noninflammatory) Status: Acute Assessment and Plan: Small. Will check echo to better visualize. (3) Hypertension: Code(s): I10 - Essential (primary) hypertension Status: Acute Assessment and Plan: Elevated at admission but improving. History of Present Illness History of Present Illness Consult date/time: 11/05/24 14:44 Reason For Visit: Rhabdo; NSTEMI Narrative: Mal Walsh is an 84-year-old male with no cardiac history. He presents to the hospital after being found on the floor by his daughter. Cardiology has been consulted because of elevated troponin levels. Patient's daughter states that she found him on the floor with a large volume of vomit surrounding him. He was confused and weak. Per the patient's daughter's report, he has been experiencing some issues with confusion, tremors, and gait instability causing multiple falls. Patient does wake up for me and answer some questions. He denies having any chest pain, shortness of breath, swelling. Patient's daughter reports that he does have ankle swelling from time to time. He is resting comfortably at the time of my evaluation and does not have any cardiac complaints-he does complain of a productive cough. Review of Systems 2 Review of Systems: All systems reviewed & are unremarkable except as noted in HPI and below PMFSH Past Medical History Medical History Kidney stones Eczema Glaucoma Gout BMI 22.0-22.9, adult History of prostate cancer Hypertension Carotid artery disease Right Bilateral cataracts Herniated cervical disc Surgical History Surgical History H/O prostate biopsy H/O colonoscopy History of cholecystectomy History of appendectomy Family History Family History Father Acute myocardial infarction Mother , criptogenic liver No problems noted. Sibling No problems noted. Sibling No problems noted. Social History Social History Social History: Code status: Full code (per EMR) Surrogate decision maker: Shellie Brown (daughter) Smoking status: Former smoker Second hand tobacco smoke exposure: Yes Alcohol intake: former Substance use: never Substance use type: does not use Do You Feel Safe in your Home?: Yes Lack of Transportation: No Lack of Food: Never True Current Housing: I Have Housing Concerned About Future Housing: No Difficulty Paying Gas/Electric Bills: No Difficulty Paying for Meds: No Currently Unemployed: No Education: High School Diploma/GED Difficulty w/ Childcare or Family Care: No Living arrangements: alone Occupation/Education: retired Additional occupation/education comments: [employer] Gender identity (if verbalized by the patient): Male Spiritual care concerns: No Meds Home Medications and Allergies Home Medications ?Medication ?Instructions ?Recorded ?Confirmed ?Type aspirin 81 mg tablet,delayed 81 mg PO DAILY 03/07/24 11/04/24 History release (Adult Low Dose Aspirin) latanoprost 0.005 % eye drops 1 drp EACH EYE DAILY 03/07/24 11/04/24 History tamsulosin 0.4 mg capsule 0.4 mg PO Q24H 03/07/24 11/04/24 History cholecalciferol (vitamin D3) 10 10 mcg PO DAILY 05/27/24 11/04/24 History mcg (400 unit) capsule (Vitamin D3) mecobalamin (vitamin B12) 1,000 1,000 mcg PO DAILY 05/27/24 11/04/24 History mcg chewable tablet (B12 Active) multivitamin 1 tablet PO DAILY 05/27/24 11/04/24 History triamcinolone acetonide 0.025 % 1 applic topical DAILY #80 grams 05/27/24 11/04/24 Rx topical cream lisinopril 20 mg tablet See Rx Instructions .Route 09/12/24 11/04/24 Rx .COMPLEX #90 tabs Allergies Allergy/AdvReac Type Severity Reaction Status Date / Time No Known Allergies Allergy Verified 11/04/24 10:40 Vital Signs Vital Signs - 24 hr 11/04/24 15:03 11/04/24 17:22 11/04/24 18:50 Temperature 36.7 C Pulse Rate 69 68 69 Respiratory Rate 18 25 H 18 Blood Pressure 161/40 H 166/61 H 135/62 Pulse Oximetry 98 100 97 Oxygen Delivery 11/04/24 20:00 11/04/24 20:45 11/04/24 22:53 Temperature 36.6 C 36.7 C 36.4 C Pulse Rate 66 74 77 Respiratory Rate 23 H 25 H 18 Blood Pressure 133/58 L 139/59 L 143/83 H Pulse Oximetry 99 97 99 Oxygen Delivery 11/04/24 23:33 11/05/24 03:52 11/05/24 06:00 Temperature 36.3 C L Pulse Rate 73 78 75 Respiratory Rate 18 Blood Pressure 138/76 Pulse Oximetry 100 Oxygen Delivery 11/05/24 08:00 11/05/24 09:21 11/05/24 11:48 Temperature 38.3 C H Pulse Rate 84 Respiratory Rate Blood Pressure Pulse Oximetry Oxygen Delivery Room Air 11/05/24 12:48 11/05/24 14:00 Temperature 38.3 C H 37.5 C Pulse Rate 66 Respiratory Rate 16 Blood Pressure 138/52 L Pulse Oximetry 96 Oxygen Delivery Exam 2 Const: General: comfortable, no acute distress and alert O rientation/consciousness: patient oriented x3 HENMT: Head: normal to inspection Eyes: General: appearance normal, both eyes and all related structures P upils: Equal, round and reactive pupils present Neck: Neck: normal visual inspection and supple Carotids: bruit Resp: Effort & Inspection: normal respiratory effort Auscultation: crackles Cardio: Rate: regular rate Rhythm: regular rhythm Heart sounds: S1 normal heart sound present, S2 normal heart sound present and Murmur heart sound present systolic GI: Auscultation: normal bowel sounds Skin: General skin exam: normal color Neuro: General: patient oriented x3 Cranial nerves: Yes Equal, round and reactive pupils present Extrem: General: normal to inspection Psych: Appearance: grossly normal Mental Status: mental status grossly normal Results Labs and Meds 11/05/24 07:56 11/05/24 07:56 Lab results: Cardiac Enzymes 11/04/24 11/04/24 11/05/24 Range/Units 10:58 17:19 07:56 AST 138 H (17-59) U/L Troponin I 0.038 H* 0.045 H* 0.111 H* (0.000-0.034) ng/mL CBC 11/05/24 Range/Units 07:56 WBC 6.2 (4.5-10.0) K/mm3 RBC 3.89 L (4.6-6.20) M/mm3 Hgb 12.2 L (14.0-18.0) g/dL Hct 36.3 L (42.0-52.0) % Plt Count 114 L (150-375) k/mm3 Comprehensive Metabolic Panel 11/05/24 Range/Units 07:56 Sodium 136 L (137-145) mmol/L Potassium 3.9 (3.4-5.0) mmol/L Chloride 110 H (98-107) mmol/L Carbon Dioxide 18 L (22-30) mmol/L BUN 25 H D (9-20) mg/dL Creatinine 1.21 (0.7-1.3) mg/dL Glucose 91 (65-110) mg/dL Calcium 8.5 (8.4-10.2) mg/dL AST 138 H (17-59) U/L ALT 38 (6-50) U/L Alkaline Phosphatase 55 (38-126) U/L Total Protein 6.4 (6.3-8.2) g/dL Albumin 3.4 L (3.5-5.1) g/dL Intake and Output 11/04/24 11/05/24 11/05/24 23:59 07:59 15:59 Intake Total 1999 1340 Output Total 500 Balance 1999 - 1340 Intake: IV 2000 1000 Sodium Chloride 0.9% IV 1,000 1999 1000 ml @ 150 mls/hr IV CONT .Q6H40M [facility] Rx#:[id number] Oral 340 Output: Urine 500 Patient Weight 11/05/24 23:59 Weight 61.5 kg
[2024-11-05 17:50] LABS: Folic Acid > 20.0 ng/mL (2.76->20)
[2024-11-05] MEDS: guaiFENesin 12 HR 600 MG TABCR 1200 MG PO (18:22)
[2024-11-06] VITALS (12 sets, daily range): BP systolic 146–158; BP diastolic 50–79; PULSE 68–103; RESP 16–32; TEMP 36.2–39.4; O2SAT 89–95
--- NOTE | 2024-11-06 | ECHO_ITS ---
Patient Info Name: Mal Walsh Age: 84 years : 1940 Gender: Male Ht: 65 in Wt: 139 lbs BSA: 1.71 m2 HR: 89 bpm BP: 168 / 75 mmHg Technical Quality: Good Exam Date: 11/06/2024 12:48 PM Patient Status: I Admit Date: 11/05/2024 Exam Type: CA echo doppler color flow Complete two-dimensional, color flow and Doppler transthoracic echocardiogram is performed. Staff Referring Physician: Denis Ramírez Radiologic Technology Teacher: Serena Merrill Attending Provider: Alex Abdi Summary 1. Complete two-dimensional, color flow and Doppler transthoracic echocardiogram is performed. 2. There is small pericardial effusion. 3. There is normal biventricular size and systolic function. 4. There are no significant valvular abnormalities. Left Ventricle The left ventricle is normal in size and systolic function. The left ventricular ejection fraction is 65-70%. Right Ventricle The right ventricle is normal in size and systolic function. Left Atria The left atrium is normal size. Right Atria The right atrium is normal size. Atrial Septum The atrial septum is not well visualized. Aortic Valve The aortic valve is trileaflet and sclerotic. There is no aortic stenosis. There is trace aortic regurgitation. Pulmonic Valve The pulmonic valve is not well visualized. There is no color Doppler evidence of mild pulmonic valve regurgitation. Mitral Valve The mitral valve is sclerotic. There is no mitral stenosis. There is trace mitral regurgitation. Tricuspid Valve The tricuspid valve is grossly normal. There is trace tricuspid regurgitation. Pericardium/Pleural There is small pericardial effusion. Inferior Vena Cava Normal inferior vena cava with <50% collapse upon inspiration consistent with elevated right atrial pressure, 8 mmHg. Aorta The aortic root at the level of the sinus of Valsalva measures 3.1 cm in diameter. Left Ventricular Outflow Tract Name Value Normal LVOT 2D LVOT Diameter 1.9 cm LVOT Doppler LVOT Peak Velocity 137 cm/s LVOT Peak Gradient 7 mmHg LVOT Mean Gradient 4 mmHg LVOT VTI 24 cm LVOT VTI/AV VTI Ratio 0.8 LVOT Stroke Volume 64 ml LVOT CO 2.5 l/min LVOT CI 1.4 l/min/m2 Pulmonic Valve Name Value Normal PV Doppler PV Peak Velocity 115 cm/s PV Peak Gradient 5 mmHg Mitral Valve Name Value Normal MV Doppler MV Peak Gradient 5 mmHg MV Mean Gradient 1 mmHg MV Area (Cont Eq VTI) 2.5 cm2 MV Regurgitation Doppler MR Peak Gradient 122 mmHg MV Diastolic Function MV E Peak Velocity 67 cm/s MV A Peak Velocity 119 cm/s MV E/A 0.6 MV Decel Time (PW) 315 ms MV Annular TDI MV E/e' (Septal) 10.8 MV E/e' (Lateral) 8.3 MV E/e' (Average) 9.5 Tricuspid Valve Name Value Normal TV Regurgitation Doppler TR Peak Velocity 326 cm/s TR Peak Gradient 26 mmHg Estimated PAP/RSVP RA Pressure 8 mmHg <=5 PA Systolic Pressure 50 mmHg <36 RV Systolic Pressure 50 mmHg <36 TV Annular TDI TV Lateral Isabell s' Velocity 17.3 cm/s >=9.5 Aortic Valve Name Value Normal AV Doppler AV Peak Velocity 152 cm/s AV Peak Gradient 9 mmHg AV Mean Gradient 5 mmHg AV VTI 29 cm AV Area (Cont Eq VTI) 2.3 cm2 >=3.0 AV Area (Cont Eq Griffin) 2.5 cm2 AV DI (Griffin) 0.90 AV Regurgitation 2D LVOT Area 2.7 cm2 Ventricles Name Value Normal LV Dimensions 2D/MM IVS Diastolic Thickness (2D) 1.4 cm 0.6-1.0 LVID Diastole (2D) 3.8 cm 4.2-5.8 LVIW Diastolic Thickness (2D) 1.1 cm 0.6-1.0 LVID Systole (2D) 2.4 cm 2.5-4.0 LVOT Diameter 1.9 cm LV Mass (2D Cubed) 159.13 g 88.00-224.00 LV Mass Index (2D Cubed) 93 g/m2 49-115 Relative Wall Thickness (2D) 0.56 <=0.42 LV Fractional Shortening/Ejection Fraction 2D/MM LV Fractional Shortening (2D) 37 % 25-43 LV EF (2D Teichholz) 67 % Atria Name Value Normal LA Dimensions LA Volume (4C A-L) 40 ml LA Volume (BP A-L) 40 ml RA Dimensions RA Systolic Major Kennard Length (4C) 4.6 cm 2.1-2.7 RA Area (4C) 11.7 cm2 <=18.0 Report Signatures
[2024-11-06] MEDS: SODIUM CHLORIDE 0.9% IV 1,000 ML 150 ML IV CONT (02:29)
--- NOTE | 2024-11-06 03:32 | PM.EVENT ---
Event Note Event Note Event Note: 11/06/2024 03:15 Nursing staff notified me follows on the floor that the patient was having coarse breath sounds and she was concerned that the patient sounded wet. All she also updated me that the patient had a fever yesterday morning of 101. The patient is receiving fluids normal saline at 150 and mL an hour due to his rhabdomyolysis. He has been having extremely good urine output and had almost 1 L of urine in the pure wick catheter canister at the time of my evaluation. He was not hypoxic but did had quite a vigorous cough. He had coarse crackles that could be heard from several feet from the bed. Patient was much more alert at the time my evaluation then when I had seen on the previous day. Even though he was confused he was following commands more appropriately. He was not on any antibiotic therapy as he had previously had no white count or identified source of infection. A stat chest x-ray was ordered and on my review demonstrated bibasilar infiltrates and some perihilar haziness for pneumonia versus pulmonary vascular congestion. Given the patient developed fever recently stat labs including CBC procalcitonin, blood cultures and lactic acid were obtained. White count remained stable. He remainder of labs are pending. Given his significant change in respiratory status at this time I have held his IV fluids to tell official interpretation of x-rays returned. Patient already has an echocardiogram ordered for this a.m.. Patient still does not appear intervascular volume overloaded on exam he has no JVD or lower extremity edema and no abdominal distension to suggest third-spacing. At this time will place patient on empiric antibiotic therapy to cover for community-acquired pneumonia and aspiration with Rocephin azithromycin and Flagyl. Will check urine Legionella antigen, pneumococcal antigen and mycoplasma titer. The patient's daughter is at bedside and states that it took lab checks 4 times to obtain his labs yesterday. She requests a PICC line. At the anticipate the patient being hospitalized for a few more days I will place an order for vascular access nurse for possible PICC line or midline placement. 30 minute spent in critical care activities. Patient's daughter is at bedside was updated as to the plan. Due to a high probability of clinically significant, life threatening deterioration, the patient required my highest level of preparedness to intervene emergently and I personally spent this critical care time directly and personally managing the patient. This critical care time included obtaining a history; examining the patient; pulse oximetry; ordering and review of studies; arranging urgent treatment with development of a management plan; evaluation of patient's response to treatment; frequent reassessment; and discussions with other providers. It was exclusive of separately billable procedures and treating other patients and teaching time. Please see Assessment and Plan section and the rest of the note for further information on patient assessment and treatment.
[2024-11-06] MEDS: AZITHROMYCIN 500 MG/NS 250 ML 500 MG/250 ML BAG 250 MG IVPB (03:54)
[2024-11-06] MEDS: metroNIDAZOLE 500 MG/ISO 100ML 500 MG/100 ML BAG 100 MG IVPB ×2 (03:54→09:05)
[2024-11-06 04:03] LABS: Basophils Percent Auto 0.3 % (0.2-1.2); Hematocrit 39.1 % (42.0-52.0); Hemoglobin 13.3 g/dL (14.0-18.0); Immature Granulocyte Absolute 0.01 K/mm3 (0.00-0.031); Immature Granulocyte Percent A 0.2 % (0-0.5); Immature Platelet Fraction Pct 4.2 % (0.9-11.2); Lymphocytes Absolute Auto 0.92 K/mm3 (0.9-3.2); Lymphocytes Percent Auto 14.6 % (18.3-44.2); Mean Corpuscular Hemoglobin 31.2 pg (26-34); Mean Corpuscular Volume 91.8 fl (80-100); Mean Platelet Volume 10.5 fl (7.4-10.4); Monocytes Absolute Auto 0.5 K/mm3 (0.1-0.6); Monocytes Percent Auto 7.4 % (2.6-8.5); Neutrophils Absolute Auto 4.9 K/mm3 (1.3-6.7); Neutrophils Percent Auto 77.5 % (45.5-73.1); Platelet Count Result 112 k/mm3 (150-375); Red Blood Count 4.26 M/mm3 (4.6-6.20); Red Cell Distribution Width 12.9 % (11.5-14.5); White Blood Count 6.3 K/mm3 (4.5-10.0)
[2024-11-06 04:29] LABS: Lactic Acid Reflex 1.8 mmol/L (0.7-2.0)
[2024-11-06 04:53] LABS: Influenza A QL RT-PCR Negative (Negative); Influenza B QL RT-PCR Negative (Negative); RSV RNA, RT-PCR Negative (Negative); SARS-CoV-2 RNA PCR Positive (Negative)
[2024-11-06 04:55] LABS: Procalcitonin 0.3 ng/mL
[2024-11-06 04:59] LABS: Anion Gap 11 mmol/L (4-12); Blood Urea Nitrogen 18 mg/dL (9-20); Calcium 8.7 mg/dL (8.4-10.2); Carbon Dioxide 19 mmol/L (22-30); Chloride 106 mmol/L (98-107); Creatine Kinase 5948 U/L (55-170); Estimated CRCL calculation 35 ml/min; Estimated Glomerular Filt Rate 55; Glucose 106 mg/dL (65-110); Potassium 3.6 mmol/L (3.4-5.0); Sodium 136 mmol/L (137-145)
[2024-11-06] MEDS: ACETAMINOPHEN 325 MG TABLET 650 MG PO ×2 (06:40→20:52)
[2024-11-06] MEDS: guaiFENesin 12 HR 600 MG TABCR 1200 MG PO (08:38)
[2024-11-06] MEDS: HEPARIN SODIUM 5,000 UNITS/ML VIAL 5000 UNITS SUB-Q ×2 (08:39→20:52)
[2024-11-06] MEDS: MULTIVITAMINS THERAPEUTIC TAB (*BKC) 1 TABLET PO (08:39)
[2024-11-06] MEDS: LATANOPROST 0.005% OP SOLN 2.5 ML BTL 1 DROP EACH EYE (08:40)
[2024-11-06] MEDS: CHOLECALCIFEROL (VITAMIN D3) 10 MCG (400 UNITS) TABLET PO (08:40)
[2024-11-06] MEDS: CYANOCOBALAMIN 1,000 MCG TABLET 1000 MCG PO (08:40)
[2024-11-06] MEDS: ASPIRIN 81 MG ENTERIC TABLET PO (08:40)
[2024-11-06] MEDS: TAMSULOSIN HCL 0.4 MG CAPSULE PO (08:40)
[2024-11-06] MEDS: LIDOCAINE 1% PF INJ 5 ML VIAL INFILTRATE (09:45)
--- NOTE | 2024-11-06 10:24 | WPDNEURCNPN ---
Assessment and Plan Assessment and plan (1) COVID: Code(s): U07.1 - COVID-19 Status: Acute (2) Generalized weakness: Code(s): R53.1 - Weakness Status: Acute (3) Neurologic gait dysfunction: Code(s): R26.9 - Unspecified abnormalities of gait and mobility Status: Acute Plan 1. Dementia slowly progressive with documented MRI of the brain on 10/25 without evidence of hydrocephalus or space-occupying lesion, but mildly dilated subarachnoid spaces ventricle and perivascular spaces consistent with chronic microvascular ischemic changes and mild generalized atrophy obviously not candidate for any intracranial intervention and the finding suggestive of underlying neuro degenerative process on the basis of the vascular insufficiency. 2. Most likely underlying gait dysfunction which has not been evaluated this particular time because of the intravenous lines but considering the history of the patient the resultant secondary falls is attributed to diffuse neurological process, he is not complaining of any neck pain, he does not have bilaterally positive Babinski to consider the spinal axis evaluation but if necessary we can obtain the MRI of the cervical and thoracic spine for his history of recurrent falls. 3. we can continue the treatment as such and I will other explained to the family. Consult date: 11/06/24 HPI: Mal Walsh is a 84 year old male Admitted to the hospital through the emergency room for the complaints of fall of bed last night with subsequent complaints of generalized weakness,At the time of admission to the emergency room patient was receiving aspirin 81mg daily, tamsulosin 0.4mg daily, cholecalciferol 10mcg daily, vitamin B12 1000mcg daily, and he was not reported to be allergic to any medications. In the past he has been documented to have history of carotid artery disease, hypertension, and has also known to have herniated cervical disc, his never smoker, former alcohol intake, on initial exam in the emergency room he was in no obvious acute distress, his vital signs were normal with blood pressure 176/63 CBC was normal, BMP was normal, and the mast scan was normal, EKG revealed no atrial fibrillation, on the floor it was documented that patient has ongoing history of gait instability, memory dysfunction, carotid artery stenosis, in addition to the history of prostatic cancer. And as per the information available from the family he has developed tremors along with the shuffling gait, he has undergone MRI of the brain which has revealed no acute lesion and he supposed to be followed by , she also reported that when she visited him the air conditioner was off and temperature was very high in the house. When she came back next bone he was reportedly less responsive and was more confused. She also reported that she found him on the floor though there was no evidence of any external injuries. Initial CTA of head and neck in the emergency room revealed only 20 to 50% stenosis of the right carotid bulb, mild atherosclerotic changes but no aneurysm or thrombosis, routine x-rays of the shoulder revealed only chondrocalcinosis of the left glenohumeral joint an x-ray of the chest minimal left pleural effusion with bi basilar mild atelectasis. His present medications on the floor include aspirin 81mg daily, heparin 5000units subQ q.12 hours, ceftriaxone 1g Q 24hours intravenously and azithromycin 5mg Q 24hours in addition to remdesivir and lisinopril 20mg daily. Patient has been fine to have elevated troponin which have been attributed to mild rhabdomyolysis but no cardiac concern. Since admission his chest x-ray has been raising the possibility of bibasilar pneumonia, and has been tested positive for the COVID on 11/06. As per the daughter patient has developed shuffling gait and tremor in addition to the rapid decline in general condition. As mentioned before he was to be evaluated by the neurologist. Review of Systems Review of Systems: All systems reviewed & are unremarkable except as noted in HPI and below PMFSH Past Medical History Medical History Kidney stones Eczema Glaucoma Gout BMI 22.0-22.9, adult History of prostate cancer Hypertension Carotid artery disease Right Bilateral cataracts Herniated cervical disc Surgical History Surgical History H/O prostate biopsy H/O colonoscopy History of cholecystectomy History of appendectomy Family History Family History Father Acute myocardial infarction Mother , criptogenic liver No problems noted. Sibling No problems noted. Sibling No problems noted. Social History Social History Social History: Code status: Full code (per EMR) Surrogate decision maker: Shellie Brown (daughter) Smoking status: Former smoker Second hand tobacco smoke exposure: Yes Alcohol intake: former Substance use: never Substance use type: does not use Do You Feel Safe in your Home?: Yes Lack of Transportation: No Lack of Food: Never True Current Housing: I Have Housing Concerned About Future Housing: No Difficulty Paying Gas/Electric Bills: No Difficulty Paying for Meds: No Currently Unemployed: No Education: High School Diploma/GED Difficulty w/ Childcare or Family Care: No Living arrangements: alone Occupation/Education: retired Additional occupation/education comments: [employer] Gender identity (if verbalized by the patient): Male Spiritual care concerns: No Meds Home Medications and Allergies Home Medications ?Medication ?Instructions ?Recorded ?Confirmed ?Type aspirin 81 mg tablet,delayed 81 mg PO DAILY 03/07/24 11/04/24 History release (Adult Low Dose Aspirin) latanoprost 0.005 % eye drops 1 drp EACH EYE DAILY 03/07/24 11/04/24 History tamsulosin 0.4 mg capsule 0.4 mg PO Q24H 03/07/24 11/04/24 History cholecalciferol (vitamin D3) 10 10 mcg PO DAILY 05/27/24 11/04/24 History mcg (400 unit) capsule (Vitamin D3) mecobalamin (vitamin B12) 1,000 1,000 mcg PO DAILY 05/27/24 11/04/24 History mcg chewable tablet (B12 Active) multivitamin 1 tablet PO DAILY 05/27/24 11/04/24 History triamcinolone acetonide 0.025 % 1 applic topical DAILY #80 grams 05/27/24 11/04/24 Rx topical cream lisinopril 20 mg tablet See Rx Instructions .Route 09/12/24 11/04/24 Rx .COMPLEX #90 tabs Allergies Allergy/AdvReac Type Severity Reaction Status Date / Time No Known Allergies Allergy Verified 11/04/24 10:40 Vital Signs Vital Signs - 24 hr 11/05/24 11:48 11/05/24 12:00 11/05/24 12:48 Temperature 38.3 C H 38.3 C H Pulse Rate 79 Respiratory Rate Blood Pressure Pulse Oximetry 11/05/24 14:00 11/05/24 16:00 11/05/24 20:00 Temperature 37.5 C Pulse Rate 66 72 75 Respiratory Rate 16 Blood Pressure 138/52 L Pulse Oximetry 96 11/05/24 22:00 11/05/24 23:21 11/06/24 04:00 Temperature 36.6 C Pulse Rate 75 77 89 Respiratory Rate 18 Blood Pressure 168/75 H Pulse Oximetry 93 11/06/24 06:00 11/06/24 06:40 11/06/24 07:40 Temperature 39.4 C H 38.8 C H 36.6 C Pulse Rate 103 H Respiratory Rate 32 H Blood Pressure 158/79 H Pulse Oximetry 95 Exam Narrative: On examination today he is awake alert able to follow the verbal commands appropriately his daughter is at the bedside his speech is of low volume but he is not dysphonic not dysarthric. Head is normocephalic with no bruit, neck supple with no cervical bruits, heart regular with no murmur, lungs with decreased breath sounds but no rhonchi or crepitations, abdomen soft nontender with no organomegaly and normal bowel sounds, neurologically he is awake able to follow the examiner's instruction but his speech is of low volume though not dysphasic, pupils round regular, cool of vision full to threat stimuli in all 4 quadrants, extraocular movements are full with no nystagmus, facial sensation intact, and face is symmetrical, tongue in the oral cavity there is no fasciculation of the tongue, motor examination revealed him to have generally decreased strength in upper and lower extremities 4/5 with no abnormal movements and no abnormal tone on the passive movements of the upper and lower extremities reflexes are 1+ and plantar responses are downgoing. There is no evidence of obvious ataxic approach when he approached examiner's hand with either hand though he was unable to perform heel to knee to [place]. Results Labs 11/06/24 03:52 11/06/24 03:52 Labs: Short CBC 11/06/24 Range/Units 03:52 WBC 6.3 (4.5-10.0) K/mm3 Hgb 13.3 L (14.0-18.0) g/dL Hct 39.1 L (42.0-52.0) % Plt Count 112 L (150-375) k/mm3 BMP 11/06/24 03:52 Sodium 136 L Potassium 3.6 Chloride 106 Carbon Dioxide 19 L BUN 18 Creatinine 1.25 Glucose 106 Calcium 8.7 Cardiac Enzymes 06/24/25 06/25/25 Range/Units 07:56 03:52 Total Creatine Kinase 5289 H 5948 H (55-170) U/L
--- NOTE | 2024-11-06 10:50 | P.PNIM_ITS ---
Progress Note: A&P Assessment and Plan (1) CHRISSY (acute kidney injury): Code(s): N17.9 - Acute kidney failure, unspecified Status: Acute Assessment and Plan: * Likely due to rhabdomyolysis and dehydration with recent heat exposure. Patient received 2 L normal saline in the ER. I had ordered maintenance fluids to start at the time of admission but due to nursing miscommunication the patient's IV fluids were not started until the time of my evaluation. Will continue IV fluids at her 50 mL an hour and repeat electrolyte panel. Will monitor I&O's closely. Will repeat CK level * Creatinine: 1.4, GFR: 48, BUN: 37 * IV Fluids: NaCl 150ml/hr * Trend renal function * Trend electrolytes, correct as needed * 11/06: Cr 1.25, BUN 18 * Resolved (2) Rhabdomyolysis: Qualifiers: Rhabdomyolysis type: non-traumatic Qualified Code(s): M62.82 - Rhabdomyolysis Code(s): M62.82 - Rhabdomyolysis Status: Acute Assessment and Plan: * Likely related to gait instability and worsening dementia * CK upon admission: 2326, repeat 11/05 is 5289 * Monitor daily * 11/06: CK 2326 -> 5289 -> 5948 * Continue IVFs (3) COVID: Code(s): U07.1 - COVID-19 Status: Acute Assessment and Plan: * Nursing staff reported the patient experiencing a wet cough that progressively got worse in the evening of 11/05. The overnight provider was alerted that the patient was experiencing coarse breath sounds in an elevated fever in the a.m. of 11/06. Stat chest x-ray, procalcitonin, blood cultures, viral panel and lactic acid were obtained * Tested positive for COVID on 11/06 * CXR concerning for bibasilar pneumonia * supportive care: Tylenol p.r.n. * monitor WBC/CBC * currently not requiring increased supplemental O2 * Remdesivir 200mg IV once, 100mg daily for 5d or until discharge (4) Elevated troponin: Code(s): R79.89 - Other specified abnormal findings of blood chemistry Status: Acute Assessment and Plan: * Elevated troponin with flat profile not due to acute cardiac ischemia. * Likely secondary to underlying Rhabdo, CHRISSY * EKG: NSR * Consult cardio, as 3rd trop increased to 0.111 * Agree that elevated trop likely 2/2 to rhabdo and CHRISSY * No indication for ischemic eval * Echo to assess for pericardial effusion * Continue aspirin (5) Nausea & vomiting: Code(s): R11.2 - Nausea with vomiting, unspecified Status: Acute Assessment and Plan: * No complaints of n/v on 11/05 * Resolved (6) Abnormal urinalysis: Code(s): R82.90 - Unspecified abnormal findings in urine Status: Acute Assessment and Plan: * UA: 1+ protein, trace ketones, 3+ blood * Likely secondary to CHRISSY/rhabdomyolysis * Likely not infectious * No indications for antibiotics (7) Cognitive and behavioral changes: Code(s): R41.89 - Other symptoms and signs involving cognitive functions and awareness; R46.89 - Other symptoms and signs involving appearance and behavior Status: Acute Assessment and Plan: * Patient has had fairly rapid development of declining cognitive function. Patient's daughter reported that she had been suspicious the patient may have some dementia for the last year so. But over last 4 months he has developed shuffling gait and tremor in seems to be declining rapidly. The she has become increasingly concerned. Her outpatient evaluation by Neurology is still several months out. * Neurology consult pending, appreciate further recommendations * mildly dilated subarachnoid spaces ventricle and perivascular spaces consistent with chronic microvascular ischemic changes and mild generalized atrophy obviously not candidate for any intracranial intervention and the finding suggestive of underlying neuro degenerative process on the basis of the vascular insufficiency (8) Fall: Code(s): W19.XXXA - Unspecified fall, initial encounter Status: Acute Assessment and Plan: * Due to above factors. * Fall precautions * PT/OT eval (9) Pericardial effusion: Code(s): I31.39 - Other pericardial effusion (noninflammatory) Status: Acute Assessment and Plan: * Minimal pericardial effusion without other cardiac symptoms. * Not likely clinically significant. * Monitor 02%, physical exam reassuring Subjective Date/time seen: 11/06/24 10:50 Interval history: 84-year-old male a past medical history of gait instability, memory loss, crowded stenosis, prostate cancer status post radiation therapy, gout, essential hypertension and BPH who presented to the ER in the company of family due to nausea, vomiting and increased confusion. 11/06/2024 Patient sitting comfortably in bed at time of exam. Overnight provider was alerted that patient was having progressively worsening coarse breath sounds in the evening of 11/05 into the a.m. of 11/06. Chest x-ray, procalcitonin, blood cultures, viral panel and will and lactic acid were obtained. Patient was found to be COVID positive, started on remdesivir. Chest x-ray also indicative of likely underlying pneumonia as well. Started on Zosyn/azithromycin. On exam, crackles do appear to be present today when lungs were clear to auscultation y esterday, however the patient appears to be much more alert. He is A&Ox3 Review of Systems Review of Systems: Review of systems limited due to patient's confusion. The patient's daughter provided all information. Exam Narrative: Weight 61.1 kg BMI 22.4 Const: Other: No acute distress, well-developed well-nourished, appears stated age HENMT: Other: Head is normocephalic atraumatic, pupils are equal and reactive, mucous membranes are dry Eyes: Other: No scleral icterus, pupils are equal and reactive Neck: Other: No JVD, no lymphadenopathy Resp: Other: Crackles appreciated in both lung cool, some congestion cleared by cough. No increased work of breathing. Cardio: Other: Regular rate, regular rhythm, 2+ bilateral radial pedal pulses, no murmur GI: Other: Soft, nontender, nondistended, positive bowel sounds Skin: Other: Multiple areas of bruising to bilateral arms all relatively acute appearing Neuro: Speech: normal speech Other: A&Ox3, can answer location, year and understands why he's hospitalized. Extrem: Other: No clubbing, cyanosis or edema, 5/5 corporate treasurer strength bilateral Psych: Other: A&Ox3, cooperative Objective Data Vital Signs Vital Signs: Vital Signs - 24 hr 11/05/24 11:48 11/05/24 12:00 11/05/24 12:48 Temperature 100.9 F H 101 F H Pulse Rate 79 Respiratory Rate Blood Pressure Pulse Oximetry 11/05/24 14:00 11/05/24 16:00 11/05/24 20:00 Temperature 99.5 F Pulse Rate 66 72 75 Respiratory Rate 16 Blood Pressure 138/52 L Pulse Oximetry 96 11/05/24 22:00 11/05/24 23:21 11/06/24 04:00 Temperature 97.8 F Pulse Rate 75 77 89 Respiratory Rate 18 Blood Pressure 168/75 H Pulse Oximetry 93 11/06/24 06:00 11/06/24 06:40 11/06/24 07:40 Temperature 102.9 F H 102 F H 97.8 F Pulse Rate 103 H Respiratory Rate 32 H Blood Pressure 158/79 H Pulse Oximetry 95 Intake/Output Intake/Output: Intake & Output 11/03/24 11/04/24 11/05/24 11/06/24 23:59 23:59 23:59 23:59 Intake Total 3000 2597.5 1180 Output Total 900 1200 Balance 3000 1697.5 -20 Meds/Results Medications: Active Medications Generic Name Dose Route Start Last Admin Trade Name Freq PRN Reason Stop Dose Admin Acetaminophen 650 mg 11/04/24 16:22 11/06/24 06:40 Acetaminophen 325 Mg Tablet PO 650 mg Q4H PRN Administration Mild Pain (1-3) or Fever Aspirin 81 mg 11/05/24 09:00 11/06/24 08:40 Aspirin 81 Mg Enteric Tablet PO 81 mg DAILY PATRICIA Administration Cyanocobalamin 1,000 mcg 11/05/24 09:00 11/06/24 08:40 Cyanocobalamin 1,000 Mcg Tablet PO 1,000 mcg QAM PATRICIA Administration Guaifenesin 1,200 mg 11/06/24 09:00 11/06/24 08:38 Guaifenesin 12 Hr 600 Mg Tabcr PO 1,200 mg DAILY PATRICIA Administration Heparin Sodium (Porcine) 5,000 units 11/05/24 09:00 11/06/24 08:39 Heparin Sodium 5,000 Units/Ml Vial SUB-Q 5,000 units Q12HR PATRICIA Administration Ceftriaxone Sodium 1 gm in 50 mls @ 100 mls/hr 11/06/24 03:30 11/06/24 03:54 Rocephin 1 Gm/Ns 50 Ml IVPB 100 mls/hr Q24H PATRICIA Administration Azithromycin 500 mg in 250 mls @ 250 mls/hr 11/06/24 04:00 11/06/24 03:54 Zithromax IVPB 250 mls/hr Q24H PATRICIA Administration Metronidazole 500 mg in 100 mls @ 100 mls/hr 11/06/24 04:00 11/06/24 09:05 Flagyl 500 Mg/Iso Soln 100 Ml IVPB 100 mls/hr Q6H PATRICIA Administration Remdesivir 100 mg in 250 mls @ 250 mls/hr 11/07/24 10:00 IVPB 11/10/24 10:59 Q24H PATRICIA Remdesivir 200 mg in 250 mls @ 250 mls/hr 11/06/24 10:25 IVPB 11/06/24 11:24 ONCE ONE Latanoprost 1 drop 11/05/24 09:00 11/06/24 08:40 Latanoprost 0.005% Op Soln 2.5 Ml Btl EACH EYE 1 drop DAILY PATRICIA Administration Lisinopril 20 mg 11/06/24 10:45 Lisinopril 20 Mg Tablet BY MOUTH DAILY PATRICIA Loperamide HCl 2 mg 11/06/24 10:41 Loperamide Hcl 2 Mg Capsule PO PRN PRN Diarrhea Multivitamins Therapeutic 1 tablet 11/05/24 09:00 11/06/24 08:39 Multivitamins Therapeutic Tab (*Bkc) PO 1 tablet DAILY PATRICIA Administration Ondansetron HCl 4 mg 11/04/24 16:22 Ondansetron Inj 4 Mg/2 Ml Vial IV PUSH Q4H PRN Nausea Perflutren Lipid Microsphere 0 ml 11/05/24 15:34 Perflutren Lipid Microspheres 1.5 Ml Vial Diluted To 10 Ml Total Volume IV PUSH 11/08/24 15:34 ONCE PRN adequate visualization Protocol Sodium Chloride 10 ml 11/06/24 10:33 Central Line Flush IV PUSH PRN PRN with TPN bag changes Sodium Chloride 10 ml 11/06/24 14:00 Central Line Flush IV PUSH Q8HR PATRICIA Sodium Chloride 20 ml 11/06/24 10:33 Central Line Flush IV PUSH PRN PRN after blood draws Tamsulosin HCl 0.4 mg 11/05/24 09:00 11/06/24 08:40 Tamsulosin Hcl 0.4 Mg Capsule PO 0.4 mg DAILY PATRICIA Administration Triamcinolone Acetonide 1 applic 11/05/24 09:00 Triamcinolone Acet 0.5% Cream 15 Gm Tube TOPICAL DAILY PRN Itching Vitamin D 10 mcg 11/05/24 09:00 11/06/24 08:40 Cholecalciferol (Vitamin D3) 10 Mcg (400 Units) Tablet PO 10 mcg DAILY PATRICIA Administration Radiology Results: ITS Impressions Shoulder X-Ray 11/04/24 13:37 IMPRESSION: 1. No acute osseous abnormality. 2. 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 Chest/Abdomen/Pelvis CT 11/04/24 13:47 IMPRESSION: 1. 2 mm nonobstructing right renal stone. No other urolithiasis on either the left or right or hydronephrosis. 2. Small pericardial effusion. Head/Neck CTA 11/04/24 13:59 IMPRESSION: 1. Likely 25-50% stenosis of the right carotid bulb relative to normal distal ar romain lumen diameter (NASCET criteria) although evaluation is limited by motion artifact at this level. 2. Small amount of atherosclerotic plaque with 0% stenosis of the left carotid bulb relative to normal distal artery lumen diameter. 3. No acute intracranial process or hemodynamically significant stenosis, thrombosis or aneurysm of the intracranial cerebral arteries. 4. Age-related changes the brain including mild diffuse volume loss and mild scattered white matter hypoattenuation consistent with chronic small vessel ischemic disease. Chest X-Ray 11/06/24 10:25 IMPRESSION: Tip of the PICC line is in the distal SVC. Labs Labs: Laboratory Results - last 24 hr 11/05/24 11/06/24 11/06/24 07:57 03:52 03:53 WBC 6.3 RBC 4.26 L Hgb 13.3 L Hct 39.1 L MCV 91.8 MCH 31.2 MCHC 34.0 RDW 12.9 Plt Count 112 L MPV 10.5 H Immature Gran % (Auto) 0.2 Neut % (Auto) 77.5 H Lymph % (Auto) 14.6 L Burnet % (Auto) 7.4 Eos % (Auto) 0.0 Baso % (Auto) 0.3 Lymph # (Auto) 0.92 Burnet # (Auto) 0.5 Eos # (Auto) 0.0 Baso # (Auto) 0.0 Abs Immat Gran (auto) 0.01 Absolute Neuts (auto) 4.9 Absolute Nucleated RBC 0.000 Nucleated RBC % 0.0 % Immature Plt Fraction 4.2 Sodium 136 L Potassium 3.6 Chloride 106 Carbon Dioxide 19 L Anion Gap 11 BUN 18 Creatinine 1.25 Estim Creat Clear Calc 35 Estimated GFR 55 L Glucose 106 Lactic Acid 1.8 Calcium 8.7 Total Creatine Kinase 5948 H Vitamin B12 932.0 H Folate > 20.0 H Procalcitonin 0.3 Influenza A (RT-PCR) Influenza B (RT-PCR) RSV (RT-PCR) SARS-CoV-2 RNA (RT-PCR) 11/06/24 04:06 WBC RBC Hgb Hct MCV MCH MCHC RDW Plt Count MPV Immature Gran % (Auto) Neut % (Auto) Lymph % (Auto) Burnet % (Auto) Eos % (Auto) Baso % (Auto) Lymph # (Auto) Burnet # (Auto) Eos # (Auto) Baso # (Auto) Abs Immat Gran (auto) Absolute Neuts (auto) Absolute Nucleated RBC Nucleated RBC % % Immature Plt Fraction Sodium Potassium Chloride Carbon Dioxide Anion Gap BUN Creatinine Estim Creat Clear Calc Estimated GFR Glucose Lactic Acid Calcium Total Creatine Kinase Vitamin B12 Folate Procalcitonin Influenza A (RT-PCR) Negative Influenza B (RT-PCR) Negative RSV (RT-PCR) Negative SARS-CoV-2 RNA (RT-PCR) Positive A Quality VTE Prophylaxis VTE prophylaxis: pharmacologic ordered (Heparin 5000 units subQ q.12 hours)
[2024-11-06 11:11] LABS: Alanine Aminotransferase 61 U/L (6-50); Albumin Level 3.9 g/dL (3.5-5.1); Alkaline Phosphatase 73 U/L (38-126); Aspartate Amino Transferase 192 U/L (17-59); Bilirubin,Total 1.1 mg/dL (0.2-1.3)
[2024-11-06] MEDS: REMDESIVIR 200 MG/NS 250 ML 200 MG/250 ML BAG 250 MG IVPB (12:03)
[2024-11-06] MEDS: lisinopriL 20 MG TABLET BY MOUTH (12:03)
[2024-11-06] MEDS: LOPERAMIDE HCL 2 MG CAPSULE PO (12:03)
[2024-11-06 12:09] LABS: INR 1.3; Prothrombin Time 15.7 Seconds (11.1-14.7)
[2024-11-06] MEDS: PIPERACILLIN/TAZ 4.5G/NS 100ML 4.5 GM/100 ML BAG IVPB (13:02)
[2024-11-06] MEDS: CENTRAL LINE FLUSH 10 ML IV PUSH ×2 (13:02→20:53)
[2024-11-06 13:35] LABS: MRSA (PCR) NOT DETECTED (NOT DETECTE)
[2024-11-06] MEDS: PIPERACILLN/TAZ 3.375GM/NS50ML 3.375 GM/50 ML BAG IVPB ×2 (17:07→23:41)
[2024-11-06] MEDS: AZITHROMYCIN 250 MG TABLET 500 MG PO (20:53)
[2024-11-07] VITALS (22 sets, daily range): BP systolic 98–124; BP diastolic 44–65; PULSE 58–94; RESP 16–20; TEMP 35.9–36.6; O2SAT 94–98
[2024-11-07] MEDS: IPRATROPIUM 0.5 MG/ALBUTEROL SULFATE 2.5 MG AMPUL.NEB 3 ML INHALATION ×4 (02:00→21:33)
[2024-11-07] MEDS: CENTRAL LINE FLUSH 10 ML IV PUSH ×3 (05:32→21:43)
[2024-11-07] MEDS: PIPERACILLN/TAZ 3.375GM/NS50ML 3.375 GM/50 ML BAG IVPB ×4 (05:32→23:29)
[2024-11-07] MEDS: ACETAMINOPHEN 325 MG TABLET 650 MG PO (05:32)
[2024-11-07] MEDS: lisinopriL 20 MG TABLET BY MOUTH (08:18)
[2024-11-07] MEDS: CYANOCOBALAMIN 1,000 MCG TABLET 1000 MCG PO (08:18)
[2024-11-07] MEDS: ASPIRIN 81 MG ENTERIC TABLET PO (08:18)
[2024-11-07] MEDS: MULTIVITAMINS THERAPEUTIC TAB (*BKC) 1 TABLET PO (08:18)
[2024-11-07] MEDS: guaiFENesin 12 HR 600 MG TABCR 1200 MG PO (08:18)
[2024-11-07] MEDS: TAMSULOSIN HCL 0.4 MG CAPSULE PO (08:18)
[2024-11-07] MEDS: CHOLECALCIFEROL (VITAMIN D3) 10 MCG (400 UNITS) TABLET PO (08:18)
[2024-11-07] MEDS: LATANOPROST 0.005% OP SOLN 2.5 ML BTL 1 DROP EACH EYE (08:19)
[2024-11-07] MEDS: REMDESIVIR 100 MG/NS 250 ML 100 MG/250 ML BAG 250 MG IVPB (10:23)
[2024-11-07] MEDS: HEPARIN SODIUM 5,000 UNITS/ML VIAL 5000 UNITS SUB-Q ×2 (10:29→21:42)
--- NOTE | 2024-11-07 10:30 | P.PNIM_ITS ---
Progress Note: A&P Assessment and Plan (1) CHRISSY (acute kidney injury): Code(s): N17.9 - Acute kidney failure, unspecified Status: Acute Assessment and Plan: * Likely due to rhabdomyolysis and dehydration with recent heat exposure. Patient received 2 L normal saline in the ER. I had ordered maintenance fluids to start at the time of admission but due to nursing miscommunication the patient's IV fluids were not started until the time of my evaluation. Will continue IV fluids at her 50 mL an hour and repeat electrolyte panel. Will monitor I&O's closely. Will repeat CK level * Creatinine: 1.4, GFR: 48, BUN: 37 * IV Fluids: NaCl 150ml/hr * Trend renal function * Trend electrolytes, correct as needed * 11/06: Cr 1.25, BUN 18 * Resolved (2) Rhabdomyolysis: Qualifiers: Rhabdomyolysis type: non-traumatic Qualified Code(s): M62.82 - Rhabdomyolysis Code(s): M62.82 - Rhabdomyolysis Status: Acute Assessment and Plan: * Likely related to gait instability and worsening dementia * CK upon admission: 2326, repeat 11/05 is 5289 * Monitor daily * 11/06: CK 2326 -> 5289 -> 5948 * Continue IVFs * -- stopped IV fluids prior as 11/06 pt has crackled and still remains on oxygen supplementation will order re check CK and trend (3) COVID: Code(s): U07.1 - COVID-19 Status: Acute Assessment and Plan: * Nursing staff reported the patient experiencing a wet cough that progressively got worse in the evening of 11/05. The overnight provider was alerted that the patient was experiencing coarse breath sounds in an elevated fever in the a.m. of 11/06. Stat chest x-ray, procalcitonin, blood cultures, viral panel and lactic acid were obtained * Tested positive for COVID on 11/06 * CXR concerning for bibasilar pneumonia * supportive care: Tylenol p.r.n. * monitor WBC/CBC * currently not requiring increased supplemental O2 * Remdesivir 200mg IV once, 100mg daily for 5d or until discharge * -wean oxygen if able * * will order repeat chest xray today due to increased oxygen requirement (4) Elevated troponin: Code(s): R79.89 - Other specified abnormal findings of blood chemistry Status: Acute Assessment and Plan: * Elevated troponin with flat profile not due to acute cardiac ischemia. * Likely secondary to underlying Rhabdo, CHRISSY * EKG: NSR * Consult cardio, as 3rd trop increased to 0.111 * Agree that elevated trop likely 2/2 to rhabdo and CHRISSY * No indication for ischemic eval * Echo to assess for pericardial effusion * Continue aspirin (5) Nausea & vomiting: Code(s): R11.2 - Nausea with vomiting, unspecified Status: Acute Assessment and Plan: * No complaints of n/v on 11/05 * Resolved (6) Abnormal urinalysis: Code(s): R82.90 - Unspecified abnormal findings in urine Status: Acute Assessment and Plan: * UA: 1+ protein, trace ketones, 3+ blood * Likely secondary to CHRISSY/rhabdomyolysis * Likely not infectious * No indications for antibiotics (7) Cognitive and behavioral changes: Code(s): R41.89 - Other symptoms and signs involving cognitive functions and awareness; R46.89 - Other symptoms and signs involving appearance and behavior Status: Acute Assessment and Plan: * Patient has had fairly rapid development of declining cognitive function. Patient's daughter reported that she had been suspicious the patient may have some dementia for the last year so. But over last 4 months he has developed shuffling gait and tremor in seems to be declining rapidly. The she has be come increasingly concerned. Her outpatient evaluation by Neurology is still several months out. * Neurology consult pending, appreciate further recommendations * mildly dilated subarachnoid spaces ventricle and perivascular spaces consistent with chronic microvascular ischemic changes and mild generalized atrophy obviously not candidate for any intracranial intervention and the finding suggestive of underlying neuro degenerative process on the basis of the vascular insufficiency * - seen per neurology- no acute interventions or treatment at this time (possible MRI of the cervical and thoracic spine for his history of recurrent falls) (8) Fall: Code(s): W19.XXXA - Unspecified fall, initial encounter Status: Acute Assessment and Plan: * Due to above factors. * Fall precautions * PT/OT eval (9) Pericardial effusion: Code(s): I31.39 - Other pericardial effusion (noninflammatory) Status: Acute Assessment and Plan: * Minimal pericardial effusion without other cardiac symptoms. * Not likely clinically significant. * Monitor 02%, physical exam reassuring Time Spent With Patient Time with patient: 25 - 35 minutes Subjective Date/time seen: 11/07/24 10:30 Interval history: 84-year-old male a past medical history of gait instability, memory loss, crowded stenosis, prostate cancer status post radiation therapy, gout, essential hypertension and BPH who presented to the ER in the company of family due to nausea, vomiting and increased confusion. 11/06/2024 Patient sitting comfortably in bed at time of exam. Overnight provider was alerted that patient was having progressively worsening coarse breath sounds in the evening of 11/05 into the a.m. of 11/06. Chest x-ray, procalcitonin, blood cultures, viral panel and will and lactic acid were obtained. Patient was found to be COVID positive, started on remdesivir. Chest x-ray also indicative of likely underlying pneumonia as well. Started on Zosyn/azithromycin. On exam, crackles do appear to be present today when lungs were clear to auscultation yesterday, however the patient appears to be much more alert. He is A&Ox3 11/07 assuming care for today. pt is seen and examined. Pt is on 3 l per NC Review of Systems Review of Systems: All systems reviewed & are unremarkable except as noted in HPI and below Exam Narrative: Weight 61.1 kg BMI 22.4 Const: General: comfortable Other: No acute distress, well-developed well-nourished, appears stated age HENMT: Other: Head is normocephalic atraumatic, pupils are equal and reactive, mucous membranes are dry Eyes: Other: No scleral icterus, pupils are equal and reactive Neck: Other: No JVD, no lymphadenopathy Resp: Other: Crackles appreciated in both lung cool, some congestion cleared by cough. No increased work of breathing. Cardio: Other: Regular rate, regular rhythm, 2+ bilateral radial pedal pulses, no murmur GI: Other: Soft, nontender, nondistended, positive bowel sounds Skin: Other: Multiple areas of bruising to bilateral arms all relatively acute appearing Neuro: Speech: normal speech Other: A&Ox3, can answer location, year and understands why he's hospitalized. Extrem: Other: No clubbing, cyanosis or edema, 5/5 corset fitter strength bilateral Psych: Other: A&Ox3, cooperative Objective Data Vital Signs Vital Signs: Vital Signs - 24 hr 11/06/24 12:00 11/06/24 14:00 11/06/24 14:12 Temperature 97.1 F L Pulse Rate 68 81 Respiratory Rate 16 Blood Pressure 147/50 H Pulse Oximetry 92 Oxygen Delivery Room Air Oxygen Flow Rate 11/06/24 16:00 11/06/24 20:00 11/06/24 20:00 Temperature Pulse Rate 89 91 95 Respiratory Rate 32 H Blood Pressure Pulse Oximetry 89 L Oxygen Delivery Nasal Cannula Oxygen Flow Rate 2 11/06/24 20:52 11/06/24 21:40 11/06/24 21:52 Temperature 103 F H 103.0 F H 100.1 F H Pulse Rate 91 Respiratory Rate 32 H Blood Pressure 146/67 H Pulse Oximetry 89 L Oxygen Delivery Oxygen Flow Rate 11/06/24 22:20 11/07/24 00:00 11/07/24 02:00 Temperature Pulse Rate 79 92 Respiratory Rate 20 Blood Pressure Pulse Oximetry 93 Oxygen Delivery Nasal Cannula Oxygen Flow Rate 2 11/07/24 02:10 11/07/24 04:00 11/07/24 06:00 Temperature 97.9 F Pulse Rate 94 60 62 Respiratory Rate 20 20 Blood Pressure 116/44 L Pulse Oximetry 97 Oxygen Delivery Oxygen Flow Rate 11/07/24 06:32 11/07/24 07:57 11/07/24 07:57 Temperature 97.9 F Pulse Rate 65 Respiratory Rate 20 Blood Pressure Pulse Oximetry 94 Oxygen Delivery Nasal Cannula Oxygen Flow Rate 3 11/07/24 08:07 11/07/24 08:11 11/07/24 08:16 Temperature 96.6 F L Pulse Rate 58 L 69 Respiratory Rate 20 18 Blood Pressure 98/47 L 106/48 L Pulse Oximetry 97 Oxygen Delivery Oxygen Flow Rate 11/07/24 08:18 11/07/24 08:18 Temperature Pulse Rate 69 58 L Respiratory Rate 18 Blood Pressure Pulse Oximetry 97 Oxygen Delivery Nasal Cannula Oxygen Flow Rate 3 Intake/Output Intake/Output: Intake & Output 06/23/25 06/24/25 06/25/25 06/26/25 23:59 23:59 23:59 23:59 Intake Total 3000 2597.5 1470 960 Output Total 900 1700 200 Balance 3000 1697.5 -230 760 Meds/Results Medications: Active Medications Generic Name Dose Route Start Last Admin Trade Name Freq PRN Reason Stop Dose Admin Acetaminophen 650 mg 11/04/24 16:22 11/07/24 05:32 Acetaminophen 325 Mg Tablet PO 650 mg Q4H PRN Administration Mild Pain (1-3) or Fever Albuterol/Ipratropium 3 ml 11/07/24 02:00 11/07/24 07:57 Ipratropium 0.5 Mg/Albuterol Sulfate 2.5 Mg Ampul.Neb 3 Ml INHALATION 3 ml Q6HRT PATRICIA Administration Aspirin 81 mg 11/05/24 09:00 11/07/24 08:18 Aspirin 81 Mg Enteric Tablet PO 81 mg DAILY PATRICIA Administration Azithromycin 500 mg 11/06/24 21:00 11/06/24 20:53 Azithromycin 250 Mg Tablet PO 11/09/24 21:01 500 mg QHS PATRICIA Administration Cyanocobalamin 1,000 mcg 11/05/24 09:00 11/07/24 08:18 Cyanocobalamin 1,000 Mcg Tablet PO 1,000 mcg QAM PATRICIA Administration Guaifenesin 1,200 mg 11/06/24 09:00 11/07/24 08:18 Guaifenesin 12 Hr 600 Mg Tabcr PO 1,200 mg DAILY PATRICIA Administration Heparin Sodium (Porcine) 5,000 units 11/05/24 09:00 11/07/24 10:29 Heparin Sodium 5,000 Units/Ml Vial SUB-Q 5,000 units Q12HR PATRICIA Administration Remdesivir 100 mg in 250 mls @ 250 mls/hr 11/07/24 10:00 11/07/24 10:23 IVPB 11/10/24 10:59 250 mls/hr Q24H PATRICIA Administration Piperacillin/Tazobactam/Dextrose 3.375 gm in 50 mls @ 100 mls/hr 11/06/24 18:00 11/07/24 06:02 Zosyn 3.375 Gm/Ns 50 Ml IVPB Infused Q6HR PATRICIA Infusion Latanoprost 1 drop 11/05/24 09:00 11/07/24 08:19 Latanoprost 0.005% Op Soln 2.5 Ml Btl EACH EYE 1 drop DAILY PATRICIA Administration Lisinopril 20 mg 11/06/24 10:45 11/07/24 08:18 Lisinopril 20 Mg Tablet BY MOUTH 20 mg DAILY PATRICIA Administration Loperamide HCl 2 mg 11/06/24 10:41 11/06/24 12:03 Loperamide Hcl 2 Mg Capsule PO 2 mg PRN PRN Administration Diarrhea Multivitamins Therapeutic 1 tablet 11/05/24 09:00 11/07/24 08:18 Multivitamins Therapeutic Tab (*Bkc) PO 1 tablet DAILY PATRICIA Administration Ondansetron HCl 4 mg 11/04/24 16:22 Ondansetron Inj 4 Mg/2 Ml Vial IV PUSH Q4H PRN Nausea Perflutren Lipid Microsphere 0 ml 11/05/24 15:34 Perflutren Lipid Microspheres 1.5 Ml Vial Diluted To 10 Ml Total Volume IV PUSH 11/08/24 15:34 ONCE PRN adequate visualization Protocol Sodium Chloride 10 ml 11/06/24 10:33 Central Line Flush IV PUSH PRN PRN with TPN bag changes Sodium Chloride 10 ml 11/06/24 14:00 11/07/24 05:32 Central Line Flush IV PUSH 10 ml Q8HR PATRICIA Administration Sodium Chloride 20 ml 11/06/24 10:33 Central Line Flush IV PUSH PRN PRN after blood draws Tamsulosin HCl 0.4 mg 11/05/24 09:00 11/07/24 08:18 Tamsulosin Hcl 0.4 Mg Capsule PO 0.4 mg DAILY PATRICIA Administration Triamcinolone Acetonide 1 applic 11/05/24 09:00 Triamcinolone Acet 0.5% Cream 15 Gm Tube TOPICAL DAILY PRN Itching Vitamin D 10 mcg 11/05/24 09:00 11/07/24 08:18 Cholecalciferol (Vitamin D3) 10 Mcg (400 Units) Tablet PO 10 mcg DAILY PATRICIA Administration Radiology Results: ITS Impressions Shoulder X-Ray 11/04/24 13:37 IMPRESSION: 1. No acute osseous abnormality. 2. 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 Chest/Abdomen/Pelvis CT 11/04/24 13:47 IMPRESSION: 1. 2 mm nonobstructing right renal stone. No other urolithiasis on either the left or right or hydronephrosis. 2. Small pericardial effusion. Head/Neck CTA 11/04/24 13:59 IMPRESSION: 1. Likely 25-50% stenosis of the right carotid bulb relative to normal distal artery lumen diameter (NASCET criteria) although evaluation is limited by motion artifact at this level. 2. Small amount of atherosclerotic plaque with 0% stenosis of the left carotid bulb relative to normal distal artery lumen diameter. 3. No acute intracranial process or hemodynamically significant stenosis, thrombosis or aneurysm of the intracranial cerebral arteries. 4. Age-related changes the brain including mild diffuse volume loss and mild scattered white matter hypoattenuation consistent with chronic small vessel ischemic disease. Chest X-Ray 11/06/24 10:25 IMPRESSION: Tip of the PICC line is in the distal SVC. Labs Labs: Laboratory Results - last 24 hr 11/06/24 11/06/24 11/06/24 03:52 11:31 12:02 PT 15.7 H INR 1.3 Total Bilirubin 1.1 Direct Bilirubin 0.0 AST 192 H ALT 61 H Alkaline Phosphatase 73 Total Protein 7.0 Albumin 3.9 Nasal MRSA (PCR) Not detected Quality VTE Prophylaxis VTE prophylaxis: pharmacologic ordered (Heparin 5000 units subQ q.12 hours)
[2024-11-07] MEDS: LOPERAMIDE HCL 2 MG CAPSULE PO ×2 (14:41→23:26)
[2024-11-07] MEDS: AZITHROMYCIN 250 MG TABLET 500 MG PO (21:42)
[2024-11-08] VITALS (15 sets, daily range): BP systolic 123–140; BP diastolic 55–58; PULSE 67–96; RESP 16–18; TEMP 36.2–37.3; O2SAT 95–99
[2024-11-08] MEDS: LOPERAMIDE HCL 2 MG CAPSULE PO ×2 (00:14→09:50)
[2024-11-08] MEDS: IPRATROPIUM 0.5 MG/ALBUTEROL SULFATE 2.5 MG AMPUL.NEB 3 ML INHALATION ×4 (02:52→22:15)
[2024-11-08] MEDS: PIPERACILLN/TAZ 3.375GM/NS50ML 3.375 GM/50 ML BAG IVPB ×4 (05:42→23:39)
[2024-11-08] MEDS: CENTRAL LINE FLUSH 20 ML IV PUSH (05:43)
[2024-11-08] MEDS: CENTRAL LINE FLUSH 10 ML IV PUSH ×3 (05:43→22:18)
[2024-11-08 06:39] LABS: Hemoglobin 10.4 g/dL (14.0-18.0); Immature Platelet Fraction Pct 6.7 % (0.9-11.2); Mean Corpuscular HGB Conc 34.7 g/dl (32-36); Mean Corpuscular Hemoglobin 31.7 pg (26-34); Mean Corpuscular Volume 91.5 fl (80-100); Mean Platelet Volume 11.2 fl (7.4-10.4); Platelet Count Result 100 k/mm3 (150-375); Red Blood Count 3.28 M/mm3 (4.6-6.20); Red Cell Distribution Width 13.1 % (11.5-14.5)
[2024-11-08 06:49] LABS: Alanine Aminotransferase 40 U/L (6-50); Albumin Level 2.7 g/dL (3.5-5.1); Alkaline Phosphatase 46 U/L (38-126); Anion Gap 6 mmol/L (4-12); Aspartate Amino Transferase 72 U/L (17-59); Bilirubin,Total 0.6 mg/dL (0.2-1.3); Blood Urea Nitrogen 26 mg/dL (9-20); Calcium 8.3 mg/dL (8.4-10.2); Carbon Dioxide 22 mmol/L (22-30); Chloride 107 mmol/L (98-107); Estimated CRCL calculation 29 ml/min; Estimated Glomerular Filt Rate 44; Glucose 86 mg/dL (65-110); Potassium 2.9 mmol/L (3.4-5.0); Sodium 135 mmol/L (137-145); Total Protein 5.3 g/dL (6.3-8.2)
[2024-11-08 06:51] LABS: INR 1.5; Prothrombin Time 18.3 Seconds (11.1-14.7)
--- NOTE | 2024-11-08 07:08 | P.PNIM_ITS ---
Progress Note: A&P Assessment and Plan (1) CHRISSY (acute kidney injury): Code(s): N17.9 - Acute kidney failure, unspecified Status: Acute Assessment and Plan: * Likely due to rhabdomyolysis and dehydration with recent heat exposure. Patient received 2 L normal saline in the ER. I had ordered maintenance fluids to start at the time of admission but due to nursing miscommunication the patient's IV fluids were not started until the time of my evaluation. Will continue IV fluids at her 50 mL an hour and repeat electrolyte panel. Will monitor I&O's closely. Will repeat CK level * Creatinine: 1.4, GFR: 48, BUN: 37 * IV Fluids: NaCl 150ml/hr * Trend renal function * Trend electrolytes, correct as needed * 11/08: Cr1.51, BUN 26 * Consider gently rehydration, daughter has been encouraging more oral fluid intake for past day (2) Rhabdomyolysis: Qualifiers: Rhabdomyolysis type: non-traumatic Qualified Code(s): M62.82 - Rhabdomyolysis Code(s): M62.82 - Rhabdomyolysis Status: Acute Assessment and Plan: * Likely related to gait instability and worsening dementia * CK upon admission: 2326, repeat 11/05 is 5289 * Monitor daily * 11/08: CK 2326 -> 5289 -> 5948 -> 730 * -- stopped IV fluids prior as 11/06 pt has crackled and still remains on oxygen supplementation (3) COVID: Code(s): U07.1 - COVID-19 Status: Acute Assessment and Plan: * Nursing staff reported the patient experiencing a wet cough that progressively got worse in the evening of 11/05. The overnight provider was alerted that the patient was experiencing coarse breath sounds in an elevated fever in the a.m. of 11/06. Stat chest x-ray, procalcitonin, blood cultures, viral panel and lactic acid were obtained * Tested positive for COVID on 11/06 * CXR concerning for bibasilar pneumonia * supportive care: Tylenol p.r.n. * monitor WBC/CBC * Remdesivir 200mg IV once, 100mg daily for 5d or until discharge * No supplemental O2 needed at this time (4) Elevated troponin: Code(s): R79.89 - Other specified abnormal findings of blood chemistry Status: Acute Assessment and Plan: * Elevated troponin with flat profile not due to acute cardiac ischemia. * Likely secondary to underlying Rhabdo, CHRISSY * EKG: NSR * Consult cardio, as 3rd trop increased to 0.111 * Agree that elevated trop likely 2/2 to rhabdo and CHRISSY * No indication for ischemic eval * Echo to assess for pericardial effusion * Continue aspirin (5) Thrombocytopenia: Code(s): D69.6 - Thrombocytopenia, unspecified Status: Acute Assessment and Plan: * Upon admission, platelet count 142 * 11/08: 100 * 4T Score for HIT assessment: Low probably given 30-50% decrease, <4 day onset, no evidence of thrombosis and other possible source of thrombocytopenia likely (sepsis) * Continue to monitor Plt, consider alternative anticoagulation (6) Nausea & vomiting: Code(s): R11.2 - Nausea with vomiting, unspecified Status: Acute Assessment and Plan: * No complaints of n/v on 11/05 * Resolved (7) Abnormal urinalysis: Code(s): R82.90 - Unspecified abnormal findings in urine Status: Acute Assessment and Plan: * UA: 1+ protein, trace ketones, 3+ blood * Likely secondary to CHRISSY/rhabdomyolysis * Likely not infectious * No indications for antibiotics (8) Cognitive and behavioral changes: Code(s): R41.89 - Other symptoms and signs involving cognitive functions and awareness; R46.89 - Other symptoms and signs involving appearance and behavior Status: Acute Assessment and Plan: * Patient has had fairly rapid development of declining cognitive function. Patient's daughter reported that she had been suspicious the patient may have some dementia for the last year so. But over last 4 months he has developed shuffling gait and tremor in seems to be declining rapidly. The she has become increasingly concerned. Her outpatient evaluation by Neurology is still several months out. * Neurology consult pending, appreciate further recommendations * mildly dilated subarachnoid spaces ventricle and perivascular spaces consistent with chronic microvascular ischemic changes and mild generalized atrophy obviously not candidate for any intracranial intervention and the finding suggestive of underlying neuro degenerative process on the basis of the vascular insufficiency * - seen per neurology- no acute interventions or treatment at this time (possible MRI of the cervical and thoracic spine for his history of recurrent falls) (9) Fall: Code(s): W19.XXXA - Unspecified fall, initial encounter Status: Acute Assessment and Plan: * Due to above factors. * Fall precautions * PT/OT eval * Likely would benefit from SNF/Home health, but COVID + may affect ability for outpt rehab (10) Pericardial effusion: Code(s): I31.39 - Other pericardial effusion (noninflammatory) Status: Acute Assessment and Plan: * Minimal pericardial effusion without other cardiac symptoms. * Not likely clinically significant. * Monitor 02%, physical exam reassuring Subjective Date/time seen: 11/08/24 07:08 Interval history: 84-year-old male a past medical history of gait instability, memory loss, crowded stenosis, prostate cancer status post radiation therapy, gout, essential hypertension and BPH who presented to the ER in the company of family due to nausea, vomiting and increased confusion. 11/08/2024 Patient sitting comfortably in bed at time of exam. Potassium 2.9 on am labs, will supplement as needed. Coumadin by daughter, who states that she continues to see marked improvement in the patient's overall status. In 0 x 3 on exam, denies any chest pain, SOB, N/V, or abdominal pain. Creatinine kinase down to 742. Plt count drop from 142 on admission to 100 today, currently on heparin. Consider alternative anti-coagulation, although low probability for HIT at this time. Review of Systems Review of Systems: Review of systems limited due to patient's confusion. The patient's daughter provided all information. All systems reviewed & are unremarkable except as noted in HPI and below Exam Narrative: Weight 61.1 kg BMI 22.4 Const: General: comfortable Other: No acute distress, well-developed well-nourished, appears stated age HENMT: Other: Head is normocephalic atraumatic, pupils are equal and reactive, mucous membranes are dry Eyes: Other: No scleral icterus, pupils are equal and reactive Neck: Other: No JVD, no lymphadenopathy Resp: Other: Crackles appreciated in both lung cool, some congestion cleared by cough. No increased work of breathing. Cardio: Other: Regular rate, regular rhythm, 2+ bilateral radial pedal pulses, no murmur GI: Other: Soft, nontender, nondistended, positive bowel sounds Skin: Other: Multiple areas of bruising to bilateral arms all relatively acute appearing Neuro: Speech: normal speech Other: A&Ox3, can answer location, year and understands why he's hospitalized. Extrem: Other: No clubbing, cyanosis or edema, 5/5 ems manager strength bilateral Psych: Other: A&Ox3, cooperative Objective Data Vital Signs Vital Signs: Vital Signs - 24 hr 11/07/24 07:57 11/07/24 07:57 11/07/24 08:07 Temperature Pulse Rate 65 58 L Respiratory Rate 20 20 Blood Pressure Pulse Oximetry 94 Oxygen Delivery Nasal Cannula Oxygen Flow Rate 3 11/07/24 08:11 11/07/24 08:16 11/07/24 08:18 Temperature 96.6 F L Pulse Rate 69 69 Respiratory Rate 18 18 Blood Pressure 98/47 L 106/48 L Pulse Oximetry 97 97 Oxygen Delivery Nasal Cannula Oxygen Flow Rate 3 11/07/24 08:18 11/07/24 12:00 11/07/24 13:50 Temperature Pulse Rate 58 L 92 Respiratory Rate Blood Pressure Pulse Oximetry 97 Oxygen Delivery Room Air Oxygen Flow Rate 11/07/24 13:51 11/07/24 14:00 11/07/24 14:03 Temperature 97.3 F L Pulse Rate 79 89 80 Respiratory Rate 20 18 18 Blood Pressure 124/47 L Pulse Oximetry 98 Oxygen Delivery Oxygen Flow Rate 11/07/24 16:00 11/07/24 20:00 11/07/24 20:00 Temperature Pulse Rate 77 72 84 Respiratory Rate 18 Blood Pressure Pulse Oximetry 98 Oxygen Delivery Room Air Oxygen Flow Rate 11/07/24 21:07 11/07/24 21:40 11/07/24 21:45 Temperature 97.0 F L Pulse Rate 80 72 Respiratory Rate 16 18 Blood Pressure 105/65 Pulse Oximetry 96 98 Oxygen Delivery Room Air Oxygen Flow Rate 11/07/24 21:50 11/08/24 00:00 11/08/24 02:55 Temperature Pulse Rate 73 75 67 Respiratory Rate 18 18 Blood Pressure Pulse Oximetry Oxygen Delivery Oxygen Flow Rate 11/08/24 03:05 11/08/24 04:00 11/08/24 05:49 Temperature 99.2 F Pulse Rate 73 80 83 Respiratory Rate 18 18 Blood Pressure 123/58 L Pulse Oximetry 97 Oxygen Delivery Oxygen Flow Rate Intake/Output Intake/Output: Intake & Output 11/05/24 11/06/24 11/07/2427/25 23:59 23:59 23:59 23:59 Intake Total 2597.5 1470 2080 950 Output Total 900 1700 1100 1150 Balance 1697.5 -230 980 -200 Meds/Results Medications: Active Medications Generic Name Dose Route Start Last Admin Trade Name Freq PRN Reason Stop Dose Admin Acetaminophen 650 mg 11/04/24 16:22 11/07/24 05:32 Acetaminophen 325 Mg Tablet PO 650 mg Q4H PRN Administration Mild Pain (1-3) or Fever Albuterol/Ipratropium 3 ml 11/07/24 02:00 11/08/24 02:52 Ipratropium 0.5 Mg/Albuterol Sulfate 2.5 Mg Ampul.Neb 3 Ml INHALATION 3 ml Q6HRT PATRICIA Administration Aspirin 81 mg 11/05/24 09:00 11/07/24 08:18 Aspirin 81 Mg Enteric Tablet PO 81 mg DAILY PATRICIA Administration Azithromycin 500 mg 11/06/24 21:00 11/07/24 21:42 Azithromycin 250 Mg Tablet PO 11/09/24 21:01 500 mg QHS PATRICIA Administration Cyanocobalamin 1,000 mcg 11/05/24 09:00 11/07/24 08:18 Cyanocobalamin 1,000 Mcg Tablet PO 1,000 mcg QAM PATRICIA Administration Guaifenesin 1,200 mg 11/06/24 09:00 11/07/24 08:18 Guaifenesin 12 Hr 600 Mg Tabcr PO 1,200 mg DAILY PATRICIA Administration Heparin Sodium (Porcine) 5,000 units 11/05/24 09:00 11/07/24 21:42 Heparin Sodium 5,000 Units/Ml Vial SUB-Q 5,000 units Q12HR PATRICIA Administration Remdesivir 100 mg in 250 mls @ 250 mls/hr 11/07/24 10:00 11/07/24 11:23 IVPB 11/10/24 10:59 Infused Q24H PATRICIA Infusion Piperacillin/Tazobactam/Dextrose 3.375 gm in 50 mls @ 100 mls/hr 11/06/24 18:00 11/08/24 06:12 Zosyn 3.375 Gm/Ns 50 Ml IVPB Infused Q6HR PATRICIA Infusion Latanoprost 1 drop 11/05/24 09:00 11/07/24 08:19 Latanoprost 0.005% Op Soln 2.5 Ml Btl EACH EYE 1 drop DAILY PATRICIA Administration Lisinopril 20 mg 11/06/24 10:45 11/07/24 08:18 Lisinopril 20 Mg Tablet BY MOUTH 20 mg DAILY PATRICIA Administration Loperamide HCl 2 mg 11/06/24 10:41 11/08/24 00:14 Loperamide Hcl 2 Mg Capsule PO 2 mg PRN PRN Administration Diarrhea Multivitamins Therapeutic 1 tablet 11/05/24 09:00 11/07/24 08:18 Multivitamins Therapeutic Tab (*Bkc) PO 1 tablet DAILY PATRICIA Administration Ondansetron HCl 4 mg 11/04/24 16:22 Ondansetron Inj 4 Mg/2 Ml Vial IV PUSH Q4H PRN Nausea Perflutren Lipid Microsphere 0 ml 11/05/24 15:34 Perflutren Lipid Microspheres 1.5 Ml Vial Diluted To 10 Ml Total Volume IV PUSH 11/08/24 15:34 ONCE PRN adequate visualization Protocol Potassium Chloride 40 meq 11/08/24 07:06 Potassium Chloride 20 Meq Er Tablet PO 11/08/24 07:07 ONCE ONE Sodium Chloride 10 ml 11/06/24 10:33 Central Line Flush IV PUSH PRN PRN with TPN bag changes Sodium Chloride 10 ml 11/06/24 14:00 11/08/24 05:43 Central Line Flush IV PUSH 10 ml Q8HR PATRICIA Administration Sodium Chloride 20 ml 11/06/24 10:33 11/08/24 05:43 Central Line Flush IV PUSH 20 ml PRN PRN Administration after blood draws Tamsulosin HCl 0.4 mg 11/05/24 09:00 11/07/24 08:18 Tamsulosin Hcl 0.4 Mg Capsule PO 0.4 mg DAILY PATRICIA Administration Triamcinolone Acetonide 1 applic 11/05/24 09:00 Triamcinolone Acet 0.5% Cream 15 Gm Tube TOPICAL DAILY PRN Itching Vitamin D 10 mcg 11/05/24 09:00 11/07/24 08:18 Cholecalciferol (Vitamin D3) 10 Mcg (400 Units) Tablet PO 10 mcg DAILY PATRICIA Administration Radiology Results: ITS Impressions Shoulder X-Ray 11/04/24 13:37 IMPRESSION: 1. No acute osseous abnormality. 2. 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 Chest/Abdomen/Pelvis CT 11/04/24 13:47 IMPRESSION: 1. 2 mm nonobstructing right renal stone. No other urolithiasis on either the left or right or hydronephrosis. 2. Small pericardial effusion. Head/Neck CTA 11/04/24 13:59 IMPRESSION: 1. Likely 25-50% stenosis of the right carotid bulb relative to normal distal artery lumen diameter (NASCET criteria) although evaluation is limited by motion artifact at this level. 2. Small amount of atherosclerotic plaque with 0% stenosis of the left carotid bulb relative to normal distal artery lumen diameter. 3. No acute intracranial process or hemodynamically significant stenosis, thrombosis or aneurysm of the intracranial cerebral arteries. 4. Age-related changes the brain including mild diffuse volume loss and mild scattered white matter hypoattenuation consistent with chronic small vessel ischemic disease. Chest X-Ray 11/07/24 13:11 IMPRESSION: Subsegmental atelectatic changes in the left lung base. Otherwise, No acute cardiopulmonary pathology. Labs Labs: Laboratory Results - last 24 hr 11/08/24 05:42 WBC 5.0 RBC 3.28 L Hgb 10.4 L Hct 30.0 L MCV 91.5 MCH 31.7 MCHC 34.7 RDW 13.1 Plt Count 100 L MPV 11.2 H % Immature Plt Fraction 6.7 PT 18.3 H INR 1.5 Sodium 135 L Potassium 2.9 L Chloride 107 Carbon Dioxide 22 Anion Gap 6 BUN 26 H Creatinine 1.51 H Estim Creat Clear Calc 29 Estimated GFR 44 L Glucose 86 Calcium 8.3 L Total Bilirubin 0.6 Direct Bilirubin 0.0 AST 72 H ALT 40 Alkaline Phosphatase 46 Total Protein 5.3 L Albumin 2.7 L Quality VTE Prophylaxis VTE prophylaxis: pharmacologic ordered (Heparin 5000 units subQ q.12 hours)
[2024-11-08] MEDS: TAMSULOSIN HCL 0.4 MG CAPSULE PO (09:27)
[2024-11-08] MEDS: guaiFENesin 12 HR 600 MG TABCR 1200 MG PO (09:27)
[2024-11-08] MEDS: CYANOCOBALAMIN 1,000 MCG TABLET 1000 MCG PO (09:27)
[2024-11-08] MEDS: MULTIVITAMINS THERAPEUTIC TAB (*BKC) 1 TABLET PO (09:27)
[2024-11-08] MEDS: CHOLECALCIFEROL (VITAMIN D3) 10 MCG (400 UNITS) TABLET PO (09:27)
[2024-11-08] MEDS: ASPIRIN 81 MG ENTERIC TABLET PO (09:27)
[2024-11-08] MEDS: lisinopriL 20 MG TABLET BY MOUTH (09:27)
[2024-11-08] MEDS: LATANOPROST 0.005% OP SOLN 2.5 ML BTL 1 DROP EACH EYE (09:30)
[2024-11-08] MEDS: REMDESIVIR 100 MG/NS 250 ML 100 MG/250 ML BAG 250 MG IVPB (09:30)
[2024-11-08 11:13] LABS: Creatine Kinase 730 U/L (55-170)
[2024-11-08] MEDS: POTASSIUM CHLORIDE 20 MEQ ER TABLET 40 MEQ PO (11:15)
[2024-11-08] MEDS: AZITHROMYCIN 250 MG TABLET 500 MG PO (22:17)
[2024-11-09] VITALS (19 sets, daily range): BP systolic 132–148; BP diastolic 61–70; PULSE 64–87; RESP 16–20; TEMP 35.7–36.2; O2SAT 94–100
[2024-11-09] MEDS: IPRATROPIUM 0.5 MG/ALBUTEROL SULFATE 2.5 MG AMPUL.NEB 3 ML INHALATION ×4 (02:14→19:53)
[2024-11-09] MEDS: PIPERACILLN/TAZ 3.375GM/NS50ML 3.375 GM/50 ML BAG IVPB ×4 (05:54→23:47)
[2024-11-09] MEDS: CENTRAL LINE FLUSH 10 ML IV PUSH ×3 (05:55→21:31)
[2024-11-09] MEDS: CENTRAL LINE FLUSH 20 ML IV PUSH (05:55)
[2024-11-09 06:41] LABS: Anion Gap 7 mmol/L (4-12); Blood Urea Nitrogen 26 mg/dL (9-20); Calcium 8.6 mg/dL (8.4-10.2); Carbon Dioxide 22 mmol/L (22-30); Chloride 110 mmol/L (98-107); Estimated CRCL calculation 32 ml/min; Estimated Glomerular Filt Rate 50; Glucose 101 mg/dL (65-110); Potassium 3.7 mmol/L (3.4-5.0); Sodium 139 mmol/L (137-145)
[2024-11-09 06:44] LABS: Hematocrit 30.7 % (42.0-52.0); Hemoglobin 10.3 g/dL (14.0-18.0); Mean Corpuscular HGB Conc 33.6 g/dl (32-36); Mean Corpuscular Hemoglobin 31.1 pg (26-34); Mean Corpuscular Volume 92.7 fl (80-100); Mean Platelet Volume 11.2 fl (7.4-10.4); Platelet Count Result 121 k/mm3 (150-375); Red Blood Count 3.31 M/mm3 (4.6-6.20); Red Cell Distribution Width 13.2 % (11.5-14.5); White Blood Count 5.2 K/mm3 (4.5-10.0)
--- NOTE | 2024-11-09 07:29 | P.PNIM_ITS ---
Progress Note: A&P Assessment and Plan (1) CHRISSY (acute kidney injury): Code(s): N17.9 - Acute kidney failure, unspecified Status: Acute Assessment and Plan: * Likely due to rhabdomyolysis and dehydration with recent heat exposure. Patient received 2 L normal saline in the ER. I had ordered maintenance fluids to start at the time of admission but due to nursing miscommunication the patient's IV fluids were not started until the time of my evaluation. Will continue IV fluids at her 50 mL an hour and repeat electrolyte panel. Will monitor I&O's closely. Will repeat CK level * Creatinine: 1.4, GFR: 48, BUN: 37 * IV Fluids: NaCl 150ml/hr * Trend renal function * Trend electrolytes, correct as needed * 11/08: Cr1.51, BUN 26 * Consider gently rehydration, daughter has been encouraging more oral fluid intake for past day 11/09: * Stable and near his baseline. * (2) Rhabdomyolysis: Qualifiers: Rhabdomyolysis type: non-traumatic Qualified Code(s): M62.82 - Rhabdomyolysis Code(s): M62.82 - Rhabdomyolysis Status: Acute Assessment and Plan: * Likely related to gait instability and worsening dementia * CK upon admission: 2326, repeat 11/05 is 5289 * Monitor daily * 11/08: CK 2326 -> 5289 -> 5948 -> 730 * -- stopped IV fluids prior as 11/06 pt has crackled and still remains on oxygen supplementation 11/09: * Resolved with markedly improved cpk, renal function stable. (3) COVID: Code(s): U07.1 - COVID-19 Status: Acute Assessment and Plan: * Nursing staff reported the patient experiencing a wet cough that progressively got worse in the evening of 11/05. The overnight provider was alerted that the patient was experiencing coarse breath sounds in an elevated fever in the a.m. of 11/06. Stat chest x-ray, procalcitonin, blood cultures, viral panel and lactic acid were obtained * Tested positive for COVID on 11/06 * CXR concerning for bibasilar pneumonia * supportive care: Tylenol p.r.n. * monitor WBC/CBC * Remdesivir 200mg IV once, 100mg daily for 5d or until discharge * No supplemental O2 needed at this time 11/09: * Continuing remdesivir, off oxygen - prefer to complete a full 5 day course. Final dose tomorrow am. (4) Elevated troponin: Code(s): R79.89 - Other specified abnormal findings of blood chemistry Status: Acute Assessment and Plan: * Elevated troponin with flat profile not due to acute cardiac ischemia. * Likely secondary to underlying Rhabdo, CHRISSY * EKG: NSR * Consult cardio, as 3rd trop increased to 0.111 * Agree that elevated trop likely 2/2 to rhabdo and CHRISSY * No indication for ischemic eval * Echo to assess for pericardial effusion * Continue aspirin 11/09: * No chest pain. (5) Thrombocytopenia: Code(s): D69.6 - Thrombocytopenia, unspecified Status: Acute Assessment and Plan: * Upon admission, platelet count 142 * 11/08: 100 * 4T Score for HIT assessment: Low probably given 30-50% decrease, <4 day onset, no evidence of thrombosis and other possible source of thrombocytopenia likely (sepsis) * Continue to monitor Plt, consider alternative anticoagulation 11/09: * Slight uptrend at 120 range today, if continued stability hep 5k subq bid tomorrow would be reasonable. (6) Nausea & vomiting: Code(s): R11.2 - Nausea with vomiting, unspecified Status: Acute Assessment and Plan: * No complaints of n/v on 11/05 * Resolved (7) Abnormal urinalysis: Code(s): R82.90 - Unspecified abnormal findings in urine Status: Acute Assessment and Plan: * UA: 1+ protein, trace ketones, 3+ blood * Likely secondary to CHRISSY/rhabdomyolysis * Likely not infectious * No indications for antibiotics (8) Cognitive and behavioral changes: Code(s): R41.89 - Other symptoms and signs involving cognitive functions and awareness; R46.89 - Other symptoms and signs involving appearance and behavior Status: Acute Assessment and Plan: * Patient has had fairly rapid development of declining cognitive function. Patient's daughter reported that she had been suspicious the patient may have some dementia for the last year so. But over last 4 months he has developed shuffling gait and tremor in seems to be declining rapidly. The she has become increasingly concerned. Her outpatient evaluation by Neurology is still several months out. * Neurology consult pending, appreciate further recommendations * mildly dilated subarachnoid spaces ventricle and perivascular spaces consistent with chronic microvascular ischemic changes and mild generalized atrophy obviously not candidate for any intracranial intervention and the finding suggestive of underlying neuro degenerative process on the basis of the vascular insufficiency * - seen per neurology- no acute interventions or treatment at this time (possible MRI of the cervical and thoracic spine for his history of recurrent falls) 11/09: * Fairly well oriented today. No acute changes in mentation. Plan for short term rehab in place. (9) Fall: Code(s): W19.XXXA - Unspecified fall, initial encounter Status: Acute Assessment and Plan: * Due to above factors. * Fall precautions * PT/OT eval * Likely would benefit from SNF/Home health, but COVID + may affect ability for outpt rehab 11/09: * Plan for [facility] on discharge. Accepted pending insurance auth. (10) Pericardial effusion: Code(s): I31.39 - Other pericardial effusion (noninflammatory) Status: Acute Assessment and Plan: * Minimal pericardial effusion without other cardiac symptoms. * Not likely clinically significant. * Monitor 02%, physical exam reassuring Plan Mal is doing well today, remains off of oxygen and is conversant and displays no confusion. Plan upon insurance auth is to discharge to [facility] for further rehap prior to returning home. I have discussed this plan of care with the patient and his daughter at bedside. Time Spent With Patient Time with patient: 25 - 35 minutes Subjective Date/time seen: 11/09/24 07:29 Interval history: Mal is doing well today and denies new complaints. Appetite is fair, although not satisfied with breakfast. Denies dyspnea. Review of Systems Review of Systems: All systems reviewed & are unremarkable except as noted in HPI and below Exam Narrative: GENERAL APPEARANCE: Appears to be in no acute distress. HEAD: normocephalic atraumatic EYES: EOMI. Vision grossly intact. ENT: Hearing grossly intact, no nasal discharge NECK: Neck supple, trachea midline. CARDIAC: Normal S1/S2. Rhythm is regular. No murmurs, rubs, or gallops. No cyanosis or pallor. Extremities are warm and well perfused. LUNGS: Clear to auscultation without rales, rhonchi, wheezing or diminished breath sounds. Respirations even and unlabored. ABDOMEN: BS positive x 4 quadrants. Soft, nondistended, nontender. No guarding or rebound. MSK: No joint tenderness/swelling, fair strength in all extremities. PERIPHERAL VASCULAR: Peripheral pulses palpable. Normal perfusion, cap refill <2 seconds. No edema. NEURO: Follows commands. No focal deficits. Oriented to self, location, situation, year. Strength equal bilaterally. Intact distal sensation bilaterally. SKIN: [place] without lesions or eruptions. PSYCH: Stable, no paranoia or delusional thinking. Objective Data Vital Signs Vital Signs: Vital Signs - 24 hr 11/08/24 08:20 11/08/24 08:20 11/08/24 08:30 Temperature Pulse Rate 74 84 Respiratory Rate 18 18 Blood Pressure Pulse Oximetry 95 Oxygen Delivery Room Air 11/08/24 09:27 11/08/24 09:27 11/08/24 12:00 Temperature Pulse Rate 80 89 Respiratory Rate Blood Pressure Pulse Oximetry Oxygen Delivery Room Air 11/08/24 14:00 11/08/24 15:29 11/08/24 16:00 Temperature 98.8 F Pulse Rate 71 67 96 Respiratory Rate 18 18 Blood Pressure 130/55 L Pulse Oximetry 99 Oxygen Delivery 11/08/24 20:00 11/08/24 20:00 11/08/24 22:00 Temperature 97.2 F L Pulse Rate 96 70 69 Respiratory Rate 16 18 Blood Pressure 140/58 L Pulse Oximetry 98 98 Oxygen Delivery Room Air 11/08/24 22:15 11/09/24 00:00 11/09/24 02:14 Temperature Pulse Rate 96 84 85 Respiratory Rate 16 18 Blood Pressure Pulse Oximetry Oxygen Delivery 11/09/24 02:15 11/09/24 04:00 11/09/24 06:00 Temperature 97.2 F L Pulse Rate 71 66 Respiratory Rate 18 Blood Pressure 133/61 Pulse Oximetry 94 99 Oxygen Delivery Room Air Intake/Output Intake/Output: Intake & Output 11/06/24 11/07/24 11/08/24 11/09/24 23:59 23:59 23:59 23:59 Intake Total 1470 2080 3000 500 Output Total 1700 1100 1650 Balance -733 850 3427 500 Meds/Results Medications: Active Medications Generic Name Dose Route Start Last Admin Trade Name Freq PRN Reason Stop Dose Admin Acetaminophen 650 mg 11/04/24 16:22 11/07/24 05:32 Acetaminophen 325 Mg Tablet PO 650 mg Q4H PRN Administration Mild Pain (1-3) or Fever Albuterol/Ipratropium 3 ml 11/07/24 02:00 11/09/24 02:14 Ipratropium 0.5 Mg/Albuterol Sulfate 2.5 Mg Ampul.Neb 3 Ml INHALATION 3 ml Q6HRT PATRICIA Administration Aspirin 81 mg 11/05/24 09:00 11/08/24 09:27 Aspirin 81 Mg Enteric Tablet PO 81 mg DAILY PATRICIA Administration Azithromycin 500 mg 11/06/24 21:00 11/08/24 22:17 Azithromycin 250 Mg Tablet PO 11/09/24 21:01 500 mg QHS PATRICIA Administration Cyanocobalamin 1,000 mcg 11/05/24 09:00 11/08/24 09:27 Cyanocobalamin 1,000 Mcg Tablet PO 1,000 mcg QAM PATRICIA Administration Guaifenesin 1,200 mg 11/06/24 09:00 11/08/24 09:27 Guaifenesin 12 Hr 600 Mg Tabcr PO 1,200 mg DAILY PATRICIA Administration Remdesivir 100 mg in 250 mls @ 250 mls/hr 11/07/24 10:00 11/08/24 10:30 IVPB 11/10/24 10:59 Infused Q24H PATRICIA Infusion Piperacillin/Tazobactam/Dextrose 3.375 gm in 50 mls @ 100 mls/hr 11/06/24 18:00 11/09/24 06:24 Zosyn 3.375 Gm/Ns 50 Ml IVPB Infused Q6HR PATRICIA Infusion Latanoprost 1 drop 11/05/24 09:00 11/08/24 09:30 Latanoprost 0.005% Op Soln 2.5 Ml Btl EACH EYE 1 drop DAILY PATRICIA Administration Lisinopril 20 mg 11/06/24 10:45 11/08/24 09:27 Lisinopril 20 Mg Tablet BY MOUTH 20 mg DAILY PATRICIA Administration Loperamide HCl 2 mg 11/06/24 10:41 11/08/24 09:50 Loperamide Hcl 2 Mg Capsule PO 2 mg PRN PRN Administration Diarrhea Multivitamins Therapeutic 1 tablet 11/05/24 09:00 11/08/24 09:27 Multivitamins Therapeutic Tab (*Bkc) PO 1 tablet DAILY PATRICIA Administration Ondansetron HCl 4 mg 11/04/24 16:22 Ondansetron Inj 4 Mg/2 Ml Vial IV PUSH Q4H PRN Nausea Sodium Chloride 10 ml 11/06/24 10:33 Central Line Flush IV PUSH PRN PRN with TPN bag changes Sodium Chloride 10 ml 11/06/24 14:00 11/09/24 05:55 Central Line Flush IV PUSH 10 ml Q8HR PATRICIA Administration Sodium Chloride 20 ml 11/06/24 10:33 11/09/24 05:55 Central Line Flush IV PUSH 20 ml PRN PRN Administration after blood draws Tamsulosin HCl 0.4 mg 11/05/24 09:00 11/08/24 09:27 Tamsulosin Hcl 0.4 Mg Capsule PO 0.4 mg DAILY PATRICIA Administration Triamcinolone Acetonide 1 applic 11/05/24 09:00 Triamcinolone Acet 0.5% Cream 15 Gm Tube TOPICAL DAILY PRN Itching Vitamin D 10 mcg 11/05/24 09:00 11/08/24 09:27 Cholecalciferol (Vitamin D3) 10 Mcg (400 Units) Tablet PO 10 mcg DAILY PATRICIA Administration Radiology Results: ITS Impressions Shoulder X-Ray 11/04/24 13:37 IMPRESSION: 1. No acute osseous abnormality. 2. 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 Chest/Abdomen/Pelvis CT 11/04/24 13:47 IMPRESSION: 1. 2 mm nonobstructing right renal stone. No other urolithiasis on either the left or right or hydronephrosis. 2. Small pericardial effusion. Head/Neck CTA 11/04/24 13:59 IMPRESSION: 1. Likely 25-50% stenosis of the right carotid bulb relative to normal distal artery lumen diameter (NASCET criteria) although evaluation is limited by motion artifact at this level. 2. Small amount of atherosclerotic plaque with 0% stenosis of the left carotid bulb relative to normal distal artery lumen diameter. 3. No acute intracranial process or hemodynamically significant stenosis, thrombosis or aneurysm of the intracranial cerebral arteries. 4. Age-related changes the brain including mild diffuse volume loss and mild scattered white matter hypoattenuation consistent with chronic small vessel ischemic disease. Chest X-Ray 11/07/24 13:11 IMPRESSION: Subsegmental atelectatic changes in the left lung base. Otherwise, No acute cardiopulmonary pathology. Labs Labs: Laboratory Results - last 24 hr 11/08/24 11/09/24 05:42 05:43 WBC 5.2 RBC 3.31 L Hgb 10.3 L Hct 30.7 L MCV 92.7 MCH 31.1 MCHC 33.6 RDW 13.2 Plt Count 121 L MPV 11.2 H % Immature Plt Fraction 6.0 Sodium 139 Potassium 3.7 Chloride 110 H Carbon Dioxide 22 Anion Gap 7 BUN 26 H Creatinine 1.36 H Estim Creat Clear Calc 32 Estimated GFR 50 L Glucose 101 Calcium 8.6 Total Creatine Kinase 730 H Quality If No VTE Prophylaxis Answer both mechanical and pharmacologic: Reason no pharmacologic proph: medical contraindication Hospitalist MIPS Advance Care Plan I have confirmed that the patient's Advanced Care Plan is present, code status is documented, or surrogate decision maker is listed in patient medical record.: Yes Medication Reconciliation I have utilized all available resources to obtain, update and review the patients current medications (includes all prescriptions, OTC, herbals, cannabis, and nutritional supplements).: Yes
[2024-11-09] MEDS: CYANOCOBALAMIN 1,000 MCG TABLET 1000 MCG PO (10:11)
[2024-11-09] MEDS: lisinopriL 20 MG TABLET BY MOUTH (10:12)
[2024-11-09] MEDS: TAMSULOSIN HCL 0.4 MG CAPSULE PO (10:12)
[2024-11-09] MEDS: guaiFENesin 12 HR 600 MG TABCR 1200 MG PO (10:12)
[2024-11-09] MEDS: ASPIRIN 81 MG ENTERIC TABLET PO (10:12)
[2024-11-09] MEDS: MULTIVITAMINS THERAPEUTIC TAB (*BKC) 1 TABLET PO (10:12)
[2024-11-09] MEDS: CHOLECALCIFEROL (VITAMIN D3) 10 MCG (400 UNITS) TABLET PO (10:12)
[2024-11-09] MEDS: REMDESIVIR 100 MG/NS 250 ML 100 MG/250 ML BAG 250 MG IVPB (10:12)
[2024-11-09] MEDS: LATANOPROST 0.005% OP SOLN 2.5 ML BTL 1 DROP EACH EYE (10:13)
[2024-11-09] MEDS: LOPERAMIDE HCL 2 MG CAPSULE PO (13:38)
[2024-11-09 17:53] LABS: Legionella pneumophila Ag Ur. NOT DETECTED
[2024-11-09 18:03] LABS: Mycoplasma IgM Antibody Titer. 60 U/mL
[2024-11-09] MEDS: AZITHROMYCIN 250 MG TABLET 500 MG PO (21:31)
[2024-11-10] VITALS (15 sets, daily range): BP systolic 141–147; BP diastolic 59–91; PULSE 70–85; RESP 14–18; TEMP 36–36.6; O2SAT 97–98
[2024-11-10] MEDS: IPRATROPIUM 0.5 MG/ALBUTEROL SULFATE 2.5 MG AMPUL.NEB 3 ML INHALATION ×4 (02:11→20:26)
[2024-11-10] MEDS: PIPERACILLN/TAZ 3.375GM/NS50ML 3.375 GM/50 ML BAG IVPB ×4 (05:36→23:01)
[2024-11-10] MEDS: CENTRAL LINE FLUSH 10 ML IV PUSH ×3 (05:41→22:45)
[2024-11-10 06:06] LABS: Hematocrit 29.3 % (42.0-52.0); Hemoglobin 10.2 g/dL (14.0-18.0); Mean Corpuscular HGB Conc 34.8 g/dl (32-36); Mean Corpuscular Hemoglobin 32.1 pg (26-34); Mean Corpuscular Volume 92.1 fl (80-100); Mean Platelet Volume 10.7 fl (7.4-10.4); Platelet Count Result 147 k/mm3 (150-375); Red Blood Count 3.18 M/mm3 (4.6-6.20); White Blood Count 4.5 K/mm3 (4.5-10.0)
[2024-11-10 06:18] LABS: INR 1.4; Prothrombin Time 16.6 Seconds (11.1-14.7)
[2024-11-10 06:23] LABS: Alanine Aminotransferase 161 U/L (6-50); Albumin Level 2.8 g/dL (3.5-5.1); Alkaline Phosphatase 110 U/L (38-126); Anion Gap 5 mmol/L (4-12); Aspartate Amino Transferase 290 U/L (17-59); Bilirubin,Total 0.7 mg/dL (0.2-1.3); Blood Urea Nitrogen 23 mg/dL (9-20); Calcium 8.5 mg/dL (8.4-10.2); Carbon Dioxide 24 mmol/L (22-30); Chloride 109 mmol/L (98-107); Estimated CRCL calculation 34 ml/min; Estimated Glomerular Filt Rate 53; Glucose 90 mg/dL (65-110); Potassium 3.9 mmol/L (3.4-5.0); Sodium 138 mmol/L (137-145); Total Protein 5.6 g/dL (6.3-8.2)
--- NOTE | 2024-11-10 08:40 | P.PNIM_ITS ---
Progress Note: A&P Assessment and Plan (1) CHRISSY (acute kidney injury): Code(s): N17.9 - Acute kidney failure, unspecified Status: Acute Assessment and Plan: * Likely due to rhabdomyolysis and dehydration with recent heat exposure. Patient received 2 L normal saline in the ER. I had ordered maintenance fluids to start at the time of admission but due to nursing miscommunication the patient's IV fluids were not started until the time of my evaluation. Will continue IV fluids at her 50 mL an hour and repeat electrolyte panel. Will monitor I&O's closely. Will repeat CK level * Creatinine: 1.4, GFR: 48, BUN: 37 * IV Fluids: NaCl 150ml/hr * Trend renal function * Trend electrolytes, correct as needed * 11/08: Cr1.51, BUN 26 * Consider gently rehydration, daughter has been encouraging more oral fluid intake for past day 11/09: * Stable and near his baseline. 11/10: * Continues to improve, stable. (2) Rhabdomyolysis: Qualifiers: Rhabdomyolysis type: non-traumatic Qualified Code(s): M62.82 - Rhabdomyolysis Code(s): M62.82 - Rhabdomyolysis Status: Acute Assessment and Plan: * Likely related to gait instability and worsening dementia * CK upon admission: 2326, repeat 11/05 is 5289 * Monitor daily * 11/08: CK 2326 -> 5289 -> 5948 -> 730 * -- stopped IV fluids prior as 11/06 pt has crackled and still remains on oxygen supplementation 11/09: * Resolved with markedly improved cpk, renal function stable. 11/10: * Resolved and near normal renal function. (3) COVID: Code(s): U07.1 - COVID-19 Status: Acute Assessment and Plan: * Nursing staff reported the patient experiencing a wet cough that progressively got worse in the evening of 11/05. The overnight provider was alerted that the patient was experiencing coarse breath sounds in an elevated fever in the a.m. of 11/06. Stat chest x-ray, procalcitonin, blood cultures, viral panel and lactic acid were obtained * Tested positive for COVID on 11/06 * CXR concerning for bibasilar pneumonia * supportive care: Tylenol p.r.n. * monitor WBC/CBC * Remdesivir 200mg IV once, 100mg daily for 5d or until discharge * No supplemental O2 needed at this time 11/09: * Continuing remdesivir, off oxygen - prefer to complete a full 5 day course. Final dose tomorrow am. 11/10: * Today is the final dose of remdesivir. Stable oxygenation on room air. Bump in liver enzymes. (4) Liver enzyme elevation: Code(s): R74.8 - Abnormal levels of other serum enzymes Status: Acute Assessment and Plan: 11/10: - Will trend, I suspect 2/2 to remdesivir as known side effect. (5) Thrombocytopenia: Code(s): D69.6 - Thrombocytopenia, unspecified Status: Acute Assessment and Plan: * Upon admission, platelet count 142 * 11/08: 100 * 4T Score for HIT assessment: Low probably given 30-50% decrease, <4 day onset, no evidence of thrombosis and other possible source of thrombocytopenia likely (sepsis) * Continue to monitor Plt, consider alternative anticoagulation 11/09: * Slight uptrend at 120 range today, if continued stability hep 5k subq bid tomorrow would be reasonable. 11/10: * Improved, add in subq vte proph heparin. (6) Cognitive and behavioral changes: Code(s): R41.89 - Other symptoms and signs involving cognitive functions and awareness; R46.89 - Other symptoms and signs involving appearance and behavior Status: Acute Assessment and Plan: * Patient has had fairly rapid development of declining cognitive function. Patient's daughter reported that she had been suspicious the patient may have some dementia for the last year so. But over last 4 months he has developed shuffling gait and tremor in seems to be declining rapidly. The she has become increasingly concerned. Her outpatient evaluation by Neurology is still several months out. * Neurology consult pending, appreciate further recommendations * mildly dilated subarachnoid spaces ventricle and perivascular spaces consistent with chronic microvascular ischemic changes and mild generalized atrophy obviously not candidate for any intracranial intervention and the finding suggestive of underlying neuro degenerative process on the basis of the vascular insufficiency * - seen per neurology- no acute interventions or treatment at this time (possible MRI of the cervical and thoracic spine for his history of recurrent falls) 11/09: * Fairly well oriented today. No acute changes in mentation. Plan for short term rehab in place. 11/09: * Continues well oriented today. No acute changes in mentation. Plan for short term rehab in place, [place]. (7) Fall: Code(s): W19.XXXA - Unspecified fall, initial encounter Status: Acute Assessment and Plan: * Due to above factors. * Fall precautions * PT/OT eval * Likely would benefit from SNF/Home health, but COVID + may affect ability for outpt rehab 11/09-11/10: * Plan for [facility] on discharge. Accepted pending insurance auth. WIll need pt/ot services. (8) Pericardial effusion: Code(s): I31.39 - Other pericardial effusion (noninflammatory) Status: Acute Assessment and Plan: * Minimal pericardial effusion without other cardiac symptoms. * Not likely clinically significant. * Monitor 02%, physical exam reassuring (9) Abnormal urinalysis: Code(s): R82.90 - Unspecified abnormal findings in urine Status: Acute Assessment and Plan: * UA: 1+ protein, trace ketones, 3+ blood * Likely secondary to CHRISSY/rhabdomyolysis * Likely not infectious * No indications for antibiotics (10) Nausea & vomiting: Code(s): R11.2 - Nausea with vomiting, unspecified Status: Acute Assessment and Plan: * No complaints of n/v on 11/05 * Resolved (11) Elevated troponin: Code(s): R79.89 - Other specified abnormal findings of blood chemistry Status: Acute Assessment and Plan: * Elevated troponin with flat profile not due to acute cardiac ischemia. * Likely secondary to underlying Rhabdo, CHRISSY * EKG: NSR * Consult cardio, as 3rd trop increased to 0.111 * Agree that elevated trop likely 2/2 to rhabdo and CHRISSY * No indication for ischemic eval * Echo to assess for pericardial effusion * Continue aspirin 11/09: * No chest pain. 11/10: * No chest pain. Resolved. Plan Mal is doing well today, remains off of oxygen and is conversant and displays no confusion. Plan is pending on insurance auth to agree to discharge to [facility] for further rehab prior to returning home. Patient and family aware of plan of care. Time Spent With Patient Time with patient: 25 - 35 minutes Subjective Date/time seen: 11/10 714 Interval history: Mr. Walsh states he feels fair today, appetite is good. Review of Systems Review of Systems: All systems reviewed & are unremarkable except as noted in HPI and below Exam Narrative: GENERAL APPEARANCE: Appears to be in no acute distress. HEAD: normocephalic atraumatic EYES: EOMI. Vision grossly intact. ENT: Hearing grossly intact, no nasal discharge NECK: Neck supple, trachea midline. CARDIAC: Normal S1/S2. Rhythm is regular. No murmurs, rubs, or gallops. No cyanosis or pallor. Extremities are warm and well perfused. LUNGS: Clear to auscultation without rales, rhonchi, wheezing or diminished breath sounds. Respirations even and unlabored. ABDOMEN: BS positive x 4 quadrants. Soft, nondistended, nontender. No guarding or rebound. MSK: No joint tenderness/swelling, fair strength in all extremities. PERIPHERAL VASCULAR: Peripheral pulses palpable. Normal perfusion, cap refill <2 seconds. No edema. NEURO: Follows commands. No focal deficits. Oriented to self, location, situation, year. Strength equal bilaterally. Intact distal sensation bilaterally. SKIN: [place] without lesions or eruptions. PSYCH: Stable, no paranoia or delusional thinking. Objective Data Vital Signs Vital Signs: Vital Signs - 24 hr 11/09/24 10:15 11/09/24 12:00 11/09/24 14:00 Temperature Pulse Rate 69 64 Respiratory Rate 16 Blood Pressure Pulse Oximetry Oxygen Delivery Room Air 11/09/24 14:00 11/09/24 14:13 11/09/24 16:00 Temperature 96.3 F L Pulse Rate 87 76 71 Respiratory Rate 17 20 Blood Pressure 148/69 H Pulse Oximetry 99 Oxygen Delivery 11/09/24 19:53 11/09/24 19:58 11/09/24 20:01 Temperature Pulse Rate 71 71 75 Respiratory Rate 16 16 Blood Pressure Pulse Oximetry Oxygen Delivery 11/09/24 20:40 11/09/24 21:31 11/09/24 22:00 Temperature 96.8 F L Pulse Rate 74 Respiratory Rate 18 Blood Pressure 145/67 H Pulse Oximetry 99 100 100 Oxygen Delivery Room Air Room Air 11/10/24 00:05 11/10/24 02:12 11/10/24 02:21 Temperature Pulse Rate 81 71 71 Respiratory Rate 16 16 Blood Pressure Pulse Oximetry Oxygen Delivery 11/10/24 04:01 11/10/24 06:00 Temperature 97.2 F L Pulse Rate 78 71 Respiratory Rate 18 Blood Pressure 141/62 H Pulse Oximetry 97 Oxygen Delivery Intake/Output Intake/Output: Intake & Output 11/07/24 11/08/24 11/09/24 11/10/24 23:59 23:59 23:59 23:59 Intake Total 2080 3000 600 650 Output Total 1100 1650 600 Balance 980 1350 0 650 Meds/Results Medications: Active Medications Generic Name Dose Route Start Last Admin Trade Name Freq PRN Reason Stop Dose Admin Acetaminophen 650 mg 11/04/24 16:22 11/07/24 05:32 Acetaminophen 325 Mg Tablet PO 650 mg Q4H PRN Administration Mild Pain (1-3) or Fever Albuterol/Ipratropium 3 ml 11/07/24 02:00 11/10/24 07:43 Ipratropium 0.5 Mg/Albuterol Sulfate 2.5 Mg Ampul.Neb 3 Ml INHALATION 3 ml Q6HRT PATRICIA Administration Aspirin 81 mg 11/05/24 09:00 11/09/24 10:12 Aspirin 81 Mg Enteric Tablet PO 81 mg DAILY PATRICIA Administration Cyanocobalamin 1,000 mcg 11/05/24 09:00 11/09/24 10:11 Cyanocobalamin 1,000 Mcg Tablet PO 1,000 mcg QAM PATRICIA Administration Guaifenesin 1,200 mg 11/06/24 09:00 11/09/24 10:12 Guaifenesin 12 Hr 600 Mg Tabcr PO 1,200 mg DAILY PATRICIA Administration Remdesivir 100 mg in 250 mls @ 250 mls/hr 11/07/24 10:00 11/09/24 10:12 IVPB 11/10/24 10:59 250 mls/hr Q24H PATRICIA Administration Piperacillin/Tazobactam/Dextrose 3.375 gm in 50 mls @ 100 mls/hr 11/06/24 18:00 11/10/24 06:06 Zosyn 3.375 Gm/Ns 50 Ml IVPB Infused Q6HR PATRICIA Infusion Latanoprost 1 drop 11/05/24 09:00 11/09/24 10:13 Latanoprost 0.005% Op Soln 2.5 Ml Btl EACH EYE 1 drop DAILY PATRICIA Administration Lisinopril 20 mg 06/25/25 10:45 11/09/24 10:12 Lisinopril 20 Mg Tablet BY MOUTH 20 mg DAILY PATRICIA Administration Loperamide HCl 2 mg 11/06/24 10:41 11/09/24 13:38 Loperamide Hcl 2 Mg Capsule PO 2 mg PRN PRN Administration Diarrhea Multivitamins Therapeutic 1 tablet 11/05/24 09:00 11/09/24 10:12 Multivitamins Therapeutic Tab (*Bkc) PO 1 tablet DAILY PATRICIA Administration Ondansetron HCl 4 mg 11/04/24 16:22 Ondansetron Inj 4 Mg/2 Ml Vial IV PUSH Q4H PRN Nausea Sodium Chloride 10 ml 11/06/24 10:33 Central Line Flush IV PUSH PRN PRN with TPN bag changes Sodium Chloride 10 ml 11/06/24 14:00 11/10/24 05:41 Central Line Flush IV PUSH 10 ml Q8HR PATRICIA Administration Sodium Chloride 20 ml 11/06/24 10:33 11/09/24 05:55 Central Line Flush IV PUSH 20 ml PRN PRN Administration after blood draws Tamsulosin HCl 0.4 mg 11/05/24 09:00 11/09/24 10:12 Tamsulosin Hcl 0.4 Mg Capsule PO 0.4 mg DAILY PATRICIA Administration Triamcinolone Acetonide 1 applic 11/05/24 09:00 Triamcinolone Acet 0.5% Cream 15 Gm Tube TOPICAL DAILY PRN Itching Vitamin D 10 mcg 11/05/24 09:00 11/09/24 10:12 Cholecalciferol (Vitamin D3) 10 Mcg (400 Units) Tablet PO 10 mcg DAILY PATRICIA Administration Radiology Results: ITS Impressions Shoulder X-Ray 11/04/24 13:37 IMPRESSION: 1. No acute osseous abnormality. 2. 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 Chest/Abdomen/Pelvis CT 11/04/24 13:47 IMPRESSION: 1. 2 mm nonobstructing right renal stone. No other urolithiasis on either the left or right or hydronephrosis. 2. Small pericardial effusion. Head/Neck CTA 11/04/24 13:59 IMPRESSION: 1. Likely 25-50% stenosis of the right carotid bulb relative to normal distal artery lumen diameter (NASCET criteria) although evaluation is limited by motion artifact at this level. 2. Small amount of atherosclerotic plaque with 0% stenosis of the left carotid bulb relative to normal distal artery lumen diameter. 3. No acute intracranial process or hemodynamically significant stenosis, thrombosis or aneurysm of the intracranial cerebral arteries. 4. Age-related changes the brain including mild diffuse volume loss and mild scattered white matter hypoattenuation consistent with chronic small vessel ischemic disease. Chest X-Ray 11/07/24 13:11 IMPRESSION: Subsegmental atelectatic changes in the left lung base. Otherwise, No acute cardiopulmonary pathology. Labs Labs: Laboratory Results - last 24 hr 11/06/24 11/06/24 11/10/24 03:53 05:13 05:34 WBC 4.5 RBC 3.18 L Hgb 10.2 L Hct 29.3 L MCV 92.1 MCH 32.1 MCHC 34.8 RDW 13.0 Plt Count 147 L MPV 10.7 H PT 16.6 H INR 1.4 Sodium 138 Potassium 3.9 Chloride 109 H Carbon Dioxide 24 Anion Gap 5 BUN 23 H Creatinine 1.30 Estim Creat Clear Calc 34 Estimated GFR 53 L Glucose 90 Calcium 8.5 Total Bilirubin 0.7 Direct Bilirubin 0.0 AST 290 H ALT 161 H Alkaline Phosphatase 110 Total Protein 5.6 L Albumin 2.8 L Ur L.pneumophila Ag Not detected Mycoplasma pneumon IgM 60 Urine Pneumococcal Ag Not detected Quality VTE Prophylaxis VTE prophylaxis: mechanical ordered and pharmacologic ordered Hospitalist MIPS Advance Care Plan I have confirmed that the patient's Advanced Care Plan is present, code status is documented, or surrogate decision maker is listed in patient medical record.: Yes Medication Reconciliation I have utilized all available resources to obtain, update and review the patients current medications (includes all prescriptions, OTC, herbals, cannabis, and nutritional supplements).: Yes
[2024-11-10] MEDS: lisinopriL 20 MG TABLET BY MOUTH (10:04)
[2024-11-10] MEDS: MULTIVITAMINS THERAPEUTIC TAB (*BKC) 1 TABLET PO (10:04)
[2024-11-10] MEDS: ASPIRIN 81 MG ENTERIC TABLET PO (10:04)
[2024-11-10] MEDS: guaiFENesin 12 HR 600 MG TABCR 1200 MG PO (10:04)
[2024-11-10] MEDS: CHOLECALCIFEROL (VITAMIN D3) 10 MCG (400 UNITS) TABLET PO (10:04)
[2024-11-10] MEDS: TAMSULOSIN HCL 0.4 MG CAPSULE PO (10:05)
[2024-11-10] MEDS: CYANOCOBALAMIN 1,000 MCG TABLET 1000 MCG PO (10:05)
[2024-11-10] MEDS: REMDESIVIR 100 MG/NS 250 ML 100 MG/250 ML BAG 250 MG IVPB (10:05)
[2024-11-10] MEDS: HEPARIN SODIUM 5,000 UNITS/ML VIAL 5000 UNITS SUB-Q ×2 (10:08→22:42)
[2024-11-10] MEDS: LATANOPROST 0.005% OP SOLN 2.5 ML BTL 1 DROP EACH EYE (10:40)
[2024-11-11] VITALS (11 sets, daily range): BP systolic 144; BP diastolic 88; PULSE 70–92; RESP 16–18; TEMP 36.4; O2SAT 97–99
[2024-11-11] MEDS: IPRATROPIUM 0.5 MG/ALBUTEROL SULFATE 2.5 MG AMPUL.NEB 3 ML INHALATION ×3 (03:31→14:09)
[2024-11-11] MEDS: PIPERACILLN/TAZ 3.375GM/NS50ML 3.375 GM/50 ML BAG IVPB (05:47)
[2024-11-11] MEDS: CENTRAL LINE FLUSH 10 ML IV PUSH (05:47)
[2024-11-11 06:08] LABS: Hematocrit 31.3 % (42.0-52.0); Hemoglobin 10.7 g/dL (14.0-18.0); Mean Corpuscular HGB Conc 34.2 g/dl (32-36); Mean Corpuscular Hemoglobin 31.6 pg (26-34); Mean Corpuscular Volume 92.3 fl (80-100); Platelet Count Result 175 k/mm3 (150-375); Red Blood Count 3.39 M/mm3 (4.6-6.20); Red Cell Distribution Width 12.9 % (11.5-14.5); White Blood Count 4.3 K/mm3 (4.5-10.0)
[2024-11-11 06:46] LABS: Alanine Aminotransferase 147 U/L (6-50); Albumin Level 3.1 g/dL (3.5-5.1); Alkaline Phosphatase 110 U/L (38-126); Anion Gap 5 mmol/L (4-12); Aspartate Amino Transferase 165 U/L (17-59); Bilirubin,Total 0.8 mg/dL (0.2-1.3); Blood Urea Nitrogen 20 mg/dL (9-20); Calcium 8.6 mg/dL (8.4-10.2); Carbon Dioxide 25 mmol/L (22-30); Chloride 109 mmol/L (98-107); Estimated CRCL calculation 34 ml/min; Estimated Glomerular Filt Rate 53; Glucose 98 mg/dL (65-110); Potassium 3.7 mmol/L (3.4-5.0); Sodium 139 mmol/L (137-145); Total Protein 5.9 g/dL (6.3-8.2)
--- NOTE | 2024-11-11 08:06 | P.PNIM_ITS ---
Progress Note: A&P Assessment and Plan (1) CHRISSY (acute kidney injury): Code(s): N17.9 - Acute kidney failure, unspecified Status: Acute Assessment and Plan: * Likely due to rhabdomyolysis and dehydration with recent heat exposure. Patient received 2 L normal saline in the ER. I had ordered maintenance fluids to start at the time of admission but due to nursing miscommunication the patient's IV fluids were not started until the time of my evaluation. Will continue IV fluids at her 50 mL an hour and repeat electrolyte panel. Will monitor I&O's closely. Will repeat CK level * Creatinine: 1.4, GFR: 48, BUN: 37 * IV Fluids: NaCl 150ml/hr * Trend renal function * Trend electrolytes, correct as needed * 11/08: Cr1.51, BUN 26 * Consider gently rehydration, daughter has been encouraging more oral fluid intake for past day 11/09: * Stable and near his baseline. 11/10: * Continues to improve, stable. 11/11: * Normalized renal function. (2) Rhabdomyolysis: Qualifiers: Rhabdomyolysis type: non-traumatic Qualified Code(s): M62.82 - Rhabdomyolysis Code(s): M62.82 - Rhabdomyolysis Status: Acute Assessment and Plan: * Likely related to gait instability and worsening dementia * CK upon admission: 2326, repeat 11/05 is 5289 * Monitor daily * 11/08: CK 2326 -> 5289 -> 5948 -> 730 * -- stopped IV fluids prior as 11/06 pt has crackled and still remains on oxygen supplementation 11/09: * Resolved with markedly improved cpk, renal function stable. 11/10: * Resolved and normal renal function. (3) COVID: Code(s): U07.1 - COVID-19 Status: Acute Assessment and Plan: * Nursing staff reported the patient experiencing a wet cough that progressively got worse in the evening of 11/05. The overnight provider was alerted that the patient was experiencing coarse breath sounds in an elevated fever in the a.m. of 11/06. Stat chest x-ray, procalcitonin, blood cultures, viral panel and la ctic acid were obtained * Tested positive for COVID on 11/06 * CXR concerning for bibasilar pneumonia * supportive care: Tylenol p.r.n. * monitor WBC/CBC * Remdesivir 200mg IV once, 100mg daily for 5d or until discharge * No supplemental O2 needed at this time 11/09: * Continuing remdesivir, off oxygen - prefer to complete a full 5 day course. Final dose tomorrow am. 11/10: * Today is the final dose of remdesivir. Stable oxygenation on room air. Bump in liver enzymes. 11/11: * Completed remdesivir, on room air. Other than weakness doing well. (4) Liver enzyme elevation: Code(s): R74.8 - Abnormal levels of other serum enzymes Status: Acute Assessment and Plan: 11/10: - Will trend, I suspect 2/ to remdesivir as known side effect. 11/11: - Improving without specific intervention. As noted, likely secondary to remdesivir vs. viral illness. (5) Thrombocytopenia: Code(s): D69.6 - Thrombocytopenia, unspecified Status: Acute Assessment and Plan: * Upon admission, platelet count 142 * 11/08: 100 * 4T Score for HIT assessment: Low probably given 30-50% decrease, <4 day onset, no evidence of thrombosis and other possible source of thrombocytopenia likely (sepsis) * Continue to monitor Plt, consider alternative anticoagulation 11/09: * Slight uptrend at 120 range today, if continued stability hep 5k subq bid tomorrow would be reasonable. 11/10: * Improved, add in subq vte proph heparin. 11/11: * Continues to improve, platelets normal range 175 today, possibly viral induced. (6) Cognitive and behavioral changes: Code(s): R41.89 - Other symptoms and signs involving cognitive functions and awareness; R46.89 - Other symptoms and signs involving appearance and behavior Status: Acute Assessment and Plan: * Patient has had fairly rapid development of declining cognitive function. Patient's daughter reported that she had been suspicious the patient may have some dementia for the last year so. But over last 4 months he has developed shuffling gait and tremor in seems to be declining rapidly. The she has become increasingly concerned. Her outpatient evaluation by Neurology is still several months out. * Neurology consult pending, appreciate further recommendations * mildly dilated subarachnoid spaces ventricle and perivascular spaces consistent with chronic microvascular ischemic changes and mild generalized atrophy obviously not candidate for any intracranial intervention and the finding suggestive of underlying neuro degenerative process on the basis of the vascular insufficiency * - seen per neurology- no acute interventions or treatment at this time (possible MRI of the cervical and thoracic spine for his history of recurrent falls) 11/09: * Fairly well oriented today. No acute changes in mentation. Plan for short term rehab in place. 11/10: * Continues well oriented today. No acute changes in mentation. Plan for short term rehab in place, [facility]. 11/11: * Mentation stable, doing well. No acute abnormal behaviors. (7) Fall: Code(s): W19.XXXA - Unspecified fall, initial encounter Status: Acute Assessment and Plan: * Due to above factors. * Fall precautions * PT/OT eval * Likely would benefit from SNF/Home health, but COVID + may affect ability for outpt rehab 11/09-11/11: * Plan for [facility] on discharge. Peer to Peer completed with insurer - initially denied for auth pending updated therapy notes. I have discussed with care coordination and new orders placed. Will get updated eval and likely resubmit if need persists. Plan Mal continues to do well today, remains off of oxygen and is conversant and displays no confusion. Plan is pending on insurance auth to agree to discharge to [facility] for further rehab prior to returning home. This has proven difficult with peer to peer requesting further therapy evaluation prior to determination. Will continue to work towards disposition, medical concerns are stable for discharge. Time Spent With Patient Time with patient: 25 - 35 minutes Subjective Date/time seen: 11/11/24 08:06 Interval history: Mal states he feels fair this am. Has a good appetite. Review of Systems Review of Systems: All systems reviewed & are unremarkable except as noted in HPI and below Exam Narrative: GENERAL APPEARANCE: Appears to be in no acute distress. HEAD: normocephalic atraumatic EYES: EOMI. Vision grossly intact. ENT: Hearing grossly intact, no nasal discharge NECK: Neck supple, trachea midline. CARDIAC: Normal S1/S2. Rhythm is regular. No murmurs, rubs, or gallops. No cyanosis or pallor. Extremities are warm and well perfused. LUNGS: Clear to auscultation without rales, rhonchi, wheezing or diminished breath sounds. Respirations even and unlabored. ABDOMEN: BS positive x 4 quadrants. Soft, nondistended, nontender. No guarding or rebound. MSK: No joint tenderness/swelling, fair strength in all extremities. PERIPHERAL VASCULAR: Peripheral pulses palpable. Normal perfusion, cap refill <2 seconds. No edema. NEURO: Follows commands. No focal deficits. Oriented. SKIN: [place] without lesions or eruptions. PSYCH: Stable, no paranoia or delusional thinking. Objective Data Vital Signs Vital Signs: Vital Signs - 24 hr 11/10/24 09:57 11/10/24 09:58 11/10/24 12:00 Temperature Pulse Rate 70 76 Respiratory Rate 16 Blood Pressure Pulse Oximetry 98 Oxygen Delivery Room Air 11/10/24 13:08 11/10/24 14:00 11/10/24 16:00 Temperature 96.8 F L Pulse Rate 70 82 80 Respiratory Rate 16 18 Blood Pressure 145/59 H Pulse Oximetry 97 Oxygen Delivery 11/10/24 20:01 11/10/24 20:26 11/10/24 22:00 Temperature 97.8 F Pulse Rate 85 83 84 Respiratory Rate 14 18 Blood Pressure 147/91 H Pulse Oximetry 97 Oxygen Delivery 11/10/24 22:42 11/11/24 00:04 11/11/24 03:32 Temperature Pulse Rate 75 92 Respiratory Rate 16 Blood Pressure Pulse Oximetry 97 Oxygen Delivery Room Air 11/11/24 04:00 11/11/24 06:00 11/11/24 07:54 Temperature 97.6 F Pulse Rate 85 79 Respiratory Rate 18 Blood Pressure 144/88 H Pulse Oximetry 99 97 Oxygen Delivery Room Air 11/11/24 07:54 11/11/24 08:02 Temperature Pulse Rate 74 70 Respiratory Rate 16 16 Blood Pressure Pulse Oximetry Oxygen Delivery Intake/Output Intake/Output: Intake & Output 11/08/24 11/09/24 11/10/24 11/11/24 23:59 23:59 23:59 23:59 Intake Total 3000 850 1520 350 Output Total 1650 600 700 Balance 9180 057 1833 -350 Meds/Results Medications: Active Medications Generic Name Dose Route Start Last Admin Trade Name Freq PRN Reason Stop Dose Admin Acetaminophen 650 mg 11/04/24 16:22 11/07/24 05:32 Acetaminophen 325 Mg Tablet PO 650 mg Q4H PRN Administration Mild Pain (1-3) or Fever Albuterol/Ipratropium 3 ml 11/07/24 02:00 11/11/24 07:54 Ipratropium 0.5 Mg/Albuterol Sulfate 2.5 Mg Ampul.Neb 3 Ml INHALATION 3 ml Q6HRT PATRICIA Administration Aspirin 81 mg 11/05/24 09:00 11/10/24 10:04 Aspirin 81 Mg Enteric Tablet PO 81 mg DAILY PATRICIA Administration Cyanocobalamin 1,000 mcg 11/05/24 09:00 11/10/24 10:05 Cyanocobalamin 1,000 Mcg Tablet PO 1,000 mcg QAM PATRICIA Administration Guaifenesin 1,200 mg 11/06/24 09:00 11/10/24 10:04 Guaifenesin 12 Hr 600 Mg Tabcr PO 1,200 mg DAILY PATRICIA Administration Heparin Sodium (Porcine) 5,000 units 11/10/24 09:00 11/10/24 22:42 Heparin Sodium 5,000 Units/Ml Vial SUB-Q 5,000 units Q12HR PATRICIA Administration Piperacillin/Tazobactam/Dextrose 3.375 gm in 50 mls @ 100 mls/hr 11/06/24 18:00 11/11/24 06:17 Zosyn 3.375 Gm/Ns 50 Ml IVPB Infused Q6HR PATRICIA Infusion Latanoprost 1 drop 11/05/24 09:00 11/10/24 10:40 Latanoprost 0.005% Op Soln 2.5 Ml Btl EACH EYE 1 drop DAILY PATRICIA Administration Lisinopril 20 mg 11/06/24 10:45 11/10/24 10:04 Lisinopril 20 Mg Tablet BY MOUTH 20 mg DAILY PATRICIA Administration Loperamide HCl 2 mg 11/06/24 10:41 11/09/24 13:38 Loperamide Hcl 2 Mg Capsule PO 2 mg PRN PRN Administration Diarrhea Multivitamins Therapeutic 1 tablet 11/05/24 09:00 11/10/24 10:04 Multivitamins Therapeutic Tab (*Bkc) PO 1 tablet DAILY PATRICIA Administration Ondansetron HCl 4 mg 11/04/24 16:22 Ondansetron Inj 4 Mg/2 Ml Vial IV PUSH Q4H PRN Nausea Sodium Chloride 10 ml 11/06/24 10:33 Central Line Flush IV PUSH PRN PRN with TPN bag changes Sodium Chloride 10 ml 11/06/24 14:00 11/11/24 05:47 Central Line Flush IV PUSH 10 ml Q8HR PATRICIA Administration Sodium Chloride 20 ml 11/06/24 10:33 11/09/24 05:55 Central Line Flush IV PUSH 20 ml PRN PRN Administration after blood draws Tamsulosin HCl 0.4 mg 11/05/24 09:00 11/10/24 10:05 Tamsulosin Hcl 0.4 Mg Capsule PO 0.4 mg DAILY PATRICIA Administration Triamcinolone Acetonide 1 applic 11/05/24 09:00 Triamcinolone Acet 0.5% Cream 15 Gm Tube TOPICAL DAILY PRN Itching Vitamin D 10 mcg 11/05/24 09:00 11/10/24 10:04 Cholecalciferol (Vitamin D3) 10 Mcg (400 Units) Tablet PO 10 mcg DAILY PATRICIA Administration Radiology Results: ITS Impressions Shoulder X-Ray 11/04/24 13:37 IMPRESSION: 1. No acute osseous abnormality. 2. 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 Chest/Abdomen/Pelvis CT 11/04/24 13:47 IMPRESSION: 1. 2 mm nonobstructing right renal stone. No other urolithiasis on either the left or right or hydronephrosis. 2. Small pericardial effusion. Head/Neck CTA 11/04/24 13:59 IMPRESSION: 1. Likely 25-50% stenosis of the right carotid bulb relative to normal distal artery lumen diameter (NASCET criteria) although evaluation is limited by motion artifact at this level. 2. Small amount of atherosclerotic plaque with 0% stenosis of the left carotid bulb relative to normal distal artery lumen diameter. 3. No acute intracranial process or hemodynamically significant stenosis, thrombosis or aneurysm of the intracranial cerebral arteries. 4. Age-related changes the brain including mild diffuse volume loss and mild scattered white matter hypoattenuation consistent with chronic small vessel ischemic disease. Chest X-Ray 11/07/24 13:11 IMPRESSION: Subsegmental atelectatic changes in the left lung base. Otherwise, No acute cardiopulmonary pathology. Labs Labs: Laboratory Results - last 24 hr 11/11/24 05:44 WBC 4.3 L RBC 3.39 L Hgb 10.7 L Hct 31.3 L MCV 92.3 MCH 31.6 MCHC 34.2 RDW 12.9 Plt Count 175 MPV 10.0 Sodium 139 Potassium 3.7 Chloride 109 H Carbon Dioxide 25 Anion Gap 5 BUN 20 Creatinine 1.30 Estim Creat Clear Calc 34 Estimated GFR 53 L Glucose 98 Calcium 8.6 Total Bilirubin 0.8 AST 165 H ALT 147 H Alkaline Phosphatase 110 Total Protein 5.9 L Albumin 3.1 L Quality VTE Prophylaxis VTE prophylaxis: mechanical ordered and pharmacologic ordered Hospitalist [facility] Advance Care Plan I have confirmed that the patient's Advanced Care Plan is present, code status is documented, or surrogate decision maker is listed in patient medical record.: Yes Medication Reconciliation I have utilized all available resources to obtain, update and review the patients current medications (includes all prescriptions, OTC, herbals, cannabis, and nutritional supplements).: Yes
--- NOTE | 2024-11-11 09:08 | PCNWS ---
Weekly nutritional screen. Patient is tolerating current diet Heart healthy with adequate intake, 75-100%. No weight loss reported. No nutritional needs at this time.
[2024-11-11] MEDS: HEPARIN SODIUM 5,000 UNITS/ML VIAL 5000 UNITS SUB-Q (09:35)
[2024-11-11] MEDS: MULTIVITAMINS THERAPEUTIC TAB (*BKC) 1 TABLET PO (09:35)
[2024-11-11] MEDS: guaiFENesin 12 HR 600 MG TABCR 1200 MG PO (09:35)
[2024-11-11] MEDS: lisinopriL 20 MG TABLET BY MOUTH (09:36)
[2024-11-11] MEDS: ASPIRIN 81 MG ENTERIC TABLET PO (09:36)
[2024-11-11] MEDS: CYANOCOBALAMIN 1,000 MCG TABLET 1000 MCG PO (09:36)
[2024-11-11] MEDS: CHOLECALCIFEROL (VITAMIN D3) 10 MCG (400 UNITS) TABLET PO (09:36)
[2024-11-11] MEDS: LATANOPROST 0.005% OP SOLN 2.5 ML BTL 1 DROP EACH EYE (09:36)
[2024-11-11] MEDS: TAMSULOSIN HCL 0.4 MG CAPSULE PO (09:36)
--- NOTE | 2024-11-11 11:54 | P.DS_ITS ---
DS: Admitting Diagnosis Discharge Date 11/11/24 Admitting Diagnosis CHRISSY, elevated troponin, n/v, rhabdomyolysis, abnormal urinalysis DS: Discharge Diagnosis Discharge Diagnosis (1) CHRISSY (acute kidney injury): Code(s): N17.9 - Acute kidney failure, unspecified Status: Acute Assessment and Plan: 11/11: * Normalized renal function. (2) Rhabdomyolysis: Qualifiers: Rhabdomyolysis type: non-traumatic Qualified Code(s): M62.82 - Rhabdomyolysis Code(s): M62.82 - Rhabdomyolysis Status: Acute Assessment and Plan: 11/11: * Resolved and normal renal function. (3) COVID: Code(s): U07.1 - COVID-19 Status: Acute Assessment and Plan: 11/11: * Completed remdesivir, on room air. Other than weakness doing well. (4) Liver enzyme elevation: Onset Date: Unknown Code(s): R74.8 - Abnormal levels of other serum enzymes Status: Acute Assessment and Plan: 11/11: - Improving without specific intervention. As noted, likely secondary to remdesivir vs. viral illness. (5) Thrombocytopenia: Code(s): D69.6 - Thrombocytopenia, unspecified Status: Acute Assessment and Plan: 11/11: * Continues to improve, platelets normal range 175 today, possibly viral induced. (6) Cognitive and behavioral changes: Code(s): R41.89 - Other symptoms and signs involving cognitive functions and awareness; R46.89 - Other symptoms and signs involving appearance and behavior Status: Acute Assessment and Plan: 11/11: * Mentation stable, doing well. No acute abnormal behaviors. (7) Fall: Code(s): W19.XXXA - Unspecified fall, initial encounter Status: Acute Assessment and Plan: 11/09-11/11: * Plan for [facility] on discharge. Peer to Peer completed with insurer - initially denied for auth pending updated therapy notes. I have discussed w [facility] care coordination and new orders placed. Will get updated eval and likely resubmit if need persists. Plan Mal continues to do well today, remains off of oxygen and is conversant and displays no confusion. DS: Summary Hospital Course Reason for hospitalization: CHRISSY, elevated troponin, n/v, rhabdomyolysis, abnormal urinalysis Hospital Course: Mal Walsh is an 84 yaer old male presenting with a fall from home and being down for an undetermined length of time. He had rhabdomyolysis. He was started on IVF and serial measurements and was clearing cpk fine, renal function remained stable. He was found to have covid, became hypoxic requiring up to 3L. This was fortunately able to be weaned off over the next few days. He completed a course of remdesivir. Mal was found to be weak, and initially planned for dc to rehab, but has shown more improvement over the last few days and will be going to home instead, with outpatient in home therapy. Additional medical problems include: - The patient had an elevation of liver enzymes, but these are now downtrending. - Mild thrombocytopenia, improving, likely viral induced. - Confused on presentation - now at baseline mentation. On day of discharge he states he feels ready to be at home. He would prefer to go home versus going to rehab. PT reassessment shows improvement from prior evaluation. His insurer has also declined to authorize rehab placement. VS are stable, labs are improved, further outaptient management is reasonable. Status at Discharge Functional status at discharge: uses cane/walker Overall status at discharge: patient is progressing back to baseline Time Spent with Patient Time attestation: Total time spent providing and/or coordinating discharge services: Time spent: Greater than 30 minutes Specific discharge activities: Care coordination meetings, family discussion, care planning, documentation, peer to peer discussions Exam Narrative: GENERAL APPEARANCE: Appears to be in no acute distress. HEAD: normocephalic atraumatic EYES: EOMI. Vision grossly intact. ENT: Hearing grossly intact, no nasal discharge NECK: Neck supple, trachea midline. CARDIAC: Normal S1/S2. Rhythm is regular. No murmurs, rubs, or gallops. No cyanosis or pallor. Extremities are warm and well perfused. LUNGS: Clear to auscultation without rales, rhonchi, wheezing or diminished breath sounds. Respirations even and unlabored. ABDOMEN: BS positive x 4 quadrants. Soft, nondistended, nontender. No guarding or rebound. MSK: No joint tenderness/swelling, fair strength in all extremities. PERIPHERAL VASCULAR: Peripheral pulses palpable. Normal perfusion, cap refill <2 seconds. No edema. NEURO: Follows commands. No focal deficits. Oriented. SKIN: [place] without lesions or eruptions. PSYCH: Stable, no paranoia or delusional thinking. DS: Data Data Completed and Pending Labs on day of discharge: Labs from last 24 hours 11/11/24 05:44 WBC 4.3 L RBC 3.39 L Hgb 10.7 L Hct 31.3 L MCV 92.3 MCH 31.6 MCHC 34.2 RDW 12.9 Plt Count 175 MPV 10.0 Sodium 139 Potassium 3.7 Chloride 109 H Carbon Dioxide 25 Anion Gap 5 BUN 20 Creatinine 1.30 Estim Creat Clear Calc 34 Estimated GFR 53 L Glucose 98 Calcium 8.6 Total Bilirubin 0.8 AST 165 H ALT 147 H Alkaline Phosphatase 110 Total Protein 5.9 L Albumin 3.1 L Preliminary micro results at discharge 11/06/24 03:51 Blood Culture - Preliminary Blood 11/06/24 03:49 Blood Culture - Preliminary Blood Imaging Radiologist's impression: Chest X-Ray 11/04/24 13:36 IMPRESSION: No acute cardiopulmonary pathology. Shoulder X-Ray 11/04/24 13:37 IMPRESSION: 1. No acute osseous abnormality. 2. 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 Shoulder X-Ray 11/04/24 13:37 IMPRESSION: No acute osseous abnormality right shoulder. Chest/Abdomen/Pelvis CT 11/04/24 13:47 IMPRESSION: 1. 2 mm nonobstructing right renal stone. No other urolithiasis on either the left or right or hydronephrosis. 2. Small pericardial effusion. Head/Neck CTA 11/04/24 13:59 IMPRESSION: 1. Likely 25-50% stenosis of the right carotid bulb relative to normal distal artery lumen diameter (NASCET criteria) although evaluation is limited by motion artifact at this level. 2. Small amount of atherosclerotic plaque with 0% stenosis of the left carotid bulb relative to normal distal artery lumen diameter. 3. No acute intracranial process or hemodynamically significant stenosis, thrombosis or aneurysm of the intracranial cerebral arteries. 4. Age-related changes the brain including mild diffuse volume loss and mild scattered white matter hypoattenuation consistent with chronic small vessel ischemic disease. Discharge Plan Discharge Attending physician on discharge: Stef Aguilar Consulting providers: Denis Raímrez; Blanca Ybarra; Naseer,Rafael Discharging Clinician: Jose Thomason Patient Disposition: Home with Home Health Service Activity: no preference Diet: as tolerated Discharge Instructions: - Follow up with your primary care provider in the next 1-2 weeks. - Take all medications as prescribed. - If anything other than steady improvement please contact your PCP or seek evaluation urgently. - Please follow all discharge directions as written, call for any questions or need for clarification. - Thank you for choosing [facility] for your healthcare needs Patient Instructions: Antibiotic Form Patient Language: Vietnamese Stand Alone Forms: General Discharge Information Follow-up/Referrals: Helio Baldwin, [Primary Care Provider] - 2 Weeks (Hospital f/u re: fall with rhabdomyolysis with normalized renal function. Elevated liver enzymes improving. COVID. ) Discharge Medications: Continued latanoprost 0.005 % drops 1 drp EACH EYE DAILY tamsulosin 0.4 mg capsule 0.4 mg PO Q24H aspirin [Adult Low Dose Aspirin] 81 mg tablet,delayed release (DR/EC) 81 mg PO DAILY mecobalamin (vitamin B12) [B12 Active] 1,000 mcg tablet,chewable 1,000 mcg PO DAILY cholecalciferol (vitamin D3) [Vitamin D3] 10 mcg (400 unit) capsule 10 mcg PO DAILY multivitamin Tablet 1 tablet PO DAILY triamcinolone acetonide 0.025 % cream 1 applic topical DAILY Qty: 80 1RF lisinopril 20 mg tablet See Rx Instructions .ROUTE .COMPLEX Qty: 90 0RF Dose Instruction: TAKE 1 TABLET BY MOUTH DAILY Rx Instructions: TAKE 1 TABLET BY MOUTH DAILY Other Ambulatory Orders: Comprehensive Metabolic Panel (Routine) Timeframe: 1 Week Location: Determined by Patient Ordered By: Jose Thomason Date of admission: 11/05/24 09:59 Primary Care Provider: Helio Baldwin Admitting Provider: Alex Abdi Attending physician on admission: Alex Abdi Condition: Stable Quality VTE Prophylaxis VTE prophylaxis: mechanical ordered and pharmacologic ordered Hospitalist [facility] Heart Failure (Exclusion) Patient has history of Heart Transplant or Left Ventricular Assistive Device?: No IF YES, STOP HERE Heart Failure (Qualifier) Patient has current or prior documentation of LVEF less than or equal to 40%, or mod/servere depressed LVSF?: No IF NO, STOP HERE
[2024-11-11] MEDS: NEOMYCIN/POLYMYXIN/BACITRACIN OINTMENT PACKET 1 PACKET (15:32)
--- NOTE | 2024-11-22 13:52 | PCCCNOTE ---
Received call from [facility] with [facility] health today, 11/22/2024 that they are closing home health referral as patient and daughter have declined services.
== END 2024-11-11 16:45 | disposition home health service (06) | DRG 640 ==
LOC: ANHED 13:47 → ANHIMU 19:14 → ANH3MEDSUR 21:51
PROVIDERS: Internal Medicine; Nurse Practitioner; Physician Assistant; Admitting Provider Internal Medicine; Emergency Provider Student in an Organized Health Care Education/Training Program; PCP Family Medicine; Visit Provider Nurse Practitioner Family
DX: E86.0 Dehydration (principal); J18.9 Pneumonia, unspecified organism; U07.1 COVID-19; M62.82 Rhabdomyolysis; I31.39 Other pericardial effusion (noninflammatory); W06.XXXA Fall from bed, initial encounter; X30.XXXA Exposure to excessive natural heat, initial encounter; R41.89 Other symptoms and signs involving cognitive functions and awareness; I12.9 Hypertensive chronic kidney disease with stage 1 through stage 4 chronic kidney disease, or unspecified chronic kidney disease; N18.9 Chronic kidney disease, unspecified; D69.6 Thrombocytopenia, unspecified; F03.90 Unspecified dementia, unspecified severity, without behavioral disturbance, psychotic disturbance, mood disturbance, and anxiety; H40.9 Unspecified glaucoma; D64.9 Anemia, unspecified; E83.52 Hypercalcemia; L30.9 Dermatitis, unspecified; N40.0 Benign prostatic hyperplasia without lower urinary tract symptoms; R79.89 Other specified abnormal findings of blood chemistry; I77.9 Disorder of arteries and arterioles, unspecified; D69.59 Other secondary thrombocytopenia; M19.012 Primary osteoarthritis, left shoulder; Z85.46 Personal history of malignant neoplasm of prostate; Z90.49 Acquired absence of other specified parts of digestive tract
CPT/HCPCS: 36415; 36569; 70496; 70498; 71045; 71250; 73030; 74176; 80048; 80053; 80076; 80143; 80179; 80307; 81001; 82077; 82140; 82550; 82607; 82746; 83605; 83735; 84145; 84443; 84484; 85025; 85027; 85055; 85610; 85730; 86738; 87040; 87070; 87205; 87449; 87637; 87641; 87899; 93005; 93306; 94640; 96361; 96374; 97110; 97116; 97162; 97165; 97530; 97535; 99285; A9270; C1751; G0378; J0248; J0456; J0696; J1644; J1836; J2003; J2543; J7030; Q9967